=== PATIENT | male | born 1940 | race Caucasian/White ===

== ENCOUNTER → 2020-10-10 15:09 | Outpatient (BNVA) | payer MEDICARE, SELFPAY | PROVIDERS: PCP Family Medicine; Referring Provider Family Medicine; Visit Provider Nurse Practitioner ==

== ENCOUNTER 2023-01-21 09:04 | Outpatient (REF) | payer MEDICARE, SELFPAY ==
[2023-01-21 11:10] LABS: MANUAL DIFF FLAG NO
[2023-01-21 11:22] LABS: Basophils Absolute Auto 0.1 X10*3/uL (0.0-0.2); Basophils Percent Auto 0.6 % (0-2); Eosinophils Absolute Auto 0.5 X10*3/uL (0.0-0.4); Eosinophils Percent Auto 6.4 % (0-4); Hematocrit 43.4 % (42.0-52.0); Hemoglobin 14.1 g/dl (14.0-18.0); Imm Gran Abs Auto 0.05 X10*3/uL (0.00-0.03); Imm Gran Pct Auto 0.6 % (0.0-0.4); Lymphocytes Absolute Auto 2.4 X10*3/uL (1.2-4.9); Lymphocytes Percent Auto 27.8 % (20-40); Mean Corpuscular HGB Conc 32.5 g/dl (31.0-36.0); Mean Corpuscular Hemoglobin 31.5 pg (27.0-33.0); Mean Corpuscular Volume 96.9 fL (80.0-98.0); Mean Platelet Volume 9.6 fL (9.4-12.4); Monocytes Absolute Auto 0.8 X10*3/uL (0.1-1.2); Monocytes Percent Auto 9.8 % (2-11); Neutrophils Absolute Auto 4.7 x10*3/uL (2.0-8.3); Neutrophils Percent Auto 54.8 % (45-73); Platelet Count 237 X10*3/uL (160-400); Red Blood Count 4.48 X10*6/uL (4.60-5.80); Red Cell Distribution Width 13.8 % (11.0-16.0); White Blood Count 8.5 X10*3/uL (4.8-10.8)
[2023-01-21 11:50] LABS: Cholesterol 143 mg/dL (<200); HDL Cholesterol 59 mg/dL (>40); LDL Cholesterol Calculated 71 mg/dL (<100); Triglycerides 66 mg/dL (<150)
[2023-01-21 11:51] LABS: Alanine Aminotransferase 25 U/L (0-40); Albumin Level 4.2 g/dL (3.5-5.0); Alkaline Phosphatase 117 U/L (39-117); Anion Gap 12 (12-20); Aspartate Amino Transferase 22 U/L (5-37); Bilirubin Total 0.4 mg/dL (0.0-1.0); Blood Urea Nitrogen 24 mg/dL (9-16); Calcium 9.7 mg/dL (8.4-10.2); Carbon Dioxide 22 mmol/L (22-29); Chloride 110 mmol/L (96-108); Estimated Glomerular Filt Rate 59; Glucose Random 140 mg/dL (60-115); Potassium 4.4 mmol/L (3.3-5.1); Sodium 140 mmol/L (135-145); TSH reflex Free T4 1.45 uIU/mL (0.32-4.0); Total Protein 7.8 g/dL (6.5-8.0)
[2023-01-21 12:03] LABS: Folate 10.5 ng/mL (> or = 4.0); Vitamin B12 546 pg/mL (200-900)
[2023-01-21 12:35] LABS: Reflex LDLD? No
[2023-01-21 12:36] LABS: Creatinine Urine 101.13 mg/dL; Microalbum/Creatinine Ratio Ur 14.8 ug/mg cr (<30)
[2023-01-23 22:54] LABS: TS Negative Control Passed; TS Panel A 1; TS Panel B 0; TS Positive Control Passed; TSpotTB Negative (Negative)
== END 2023-01-21 09:05 | disposition home or self-care (01) ==
LOC: HO.HHCL 09:04
PROVIDERS: Visit Provider Family Medicine
DX: E11.59 Type 2 diabetes mellitus with other circulatory complications (principal); Z79.4 Long term (current) use of insulin; C82.90 Follicular lymphoma, unspecified, unspecified site; Z11.1 Encounter for screening for respiratory tuberculosis
CPT/HCPCS: 36415; 80053; 80061; 82043; 82570; 82607; 82746; 84443; 85025; 86481

== ENCOUNTER 2023-07-21 13:49 | Outpatient (REF) | payer MEDICARE, SELFPAY ==
[2023-07-21 16:14] LABS: MANUAL DIFF FLAG NO
[2023-07-21 16:45] LABS: Basophils Absolute Auto 0.1 X10*3/uL (0.0-0.2); Basophils Percent Auto 0.8 % (0-2); Eosinophils Absolute Auto 0.5 X10*3/uL (0.0-0.4); Eosinophils Percent Auto 6.9 % (0-4); Hematocrit 40.5 % (42.0-52.0); Hemoglobin 13.2 g/dl (14.0-18.0); Imm Gran Abs Auto 0.04 X10*3/uL (0.00-0.03); Imm Gran Pct Auto 0.5 % (0.0-0.4); Lymphocytes Absolute Auto 2.2 X10*3/uL (1.2-4.9); Mean Corpuscular HGB Conc 32.6 g/dl (31.0-36.0); Mean Corpuscular Hemoglobin 31.6 pg (27.0-33.0); Mean Corpuscular Volume 96.9 fL (80.0-98.0); Mean Platelet Volume 9.9 fL (9.4-12.4); Monocytes Absolute Auto 0.7 X10*3/uL (0.1-1.2); Monocytes Percent Auto 8.9 % (2-11); Neutrophils Absolute Auto 4.2 x10*3/uL (2.0-8.3); Neutrophils Percent Auto 54.9 % (45-73); Platelet Count 217 X10*3/uL (160-400); Red Blood Count 4.18 X10*6/uL (4.60-5.80); Red Cell Distribution Width 13.5 % (11.0-16.0); White Blood Count 7.7 X10*3/uL (4.8-10.8)
[2023-07-21 16:46] LABS: Estimated Average Glucose 255 mg/dL; Hemoglobin A1c % 10.5 % (<6.0)
[2023-07-21 17:00] LABS: Alanine Aminotransferase 27 U/L (0-40); Albumin Level 4.1 g/dL (3.5-5.0); Alkaline Phosphatase 123 U/L (39-117); Anion Gap 16 (12-20); Aspartate Amino Transferase 21 U/L (5-37); Bilirubin Total 0.4 mg/dL (0.0-1.0); Blood Urea Nitrogen 31 mg/dL (9-16); Calcium 9.7 mg/dL (8.4-10.2); Carbon Dioxide 24 mmol/L (22-29); Chloride 104 mmol/L (96-108); Estimated Glomerular Filt Rate 50; Glucose Random 310 mg/dL (60-115); Potassium 4.6 mmol/L (3.3-5.1); Sodium 139 mmol/L (135-145); Total Protein 7.8 g/dL (6.5-8.0)
== END 2023-07-21 13:50 | disposition home or self-care (01) ==
LOC: HO.HHCL 13:49
PROVIDERS: Visit Provider Emergency Medicine
DX: I87.2 Venous insufficiency (chronic) (peripheral) (principal)
CPT/HCPCS: 36415; 80053; 83036; 85025

== ENCOUNTER 2023-09-24 11:01 | Outpatient (REF) | payer MEDICARE, SELFPAY ==
[2023-09-24 13:30] LABS: MANUAL DIFF FLAG NO
[2023-09-24 13:41] LABS: Basophils Absolute Auto 0.1 X10*3/uL (0.0-0.2); Basophils Percent Auto 0.7 % (0-2); Eosinophils Absolute Auto 0.5 X10*3/uL (0.0-0.4); Eosinophils Percent Auto 6.6 % (0-4); Hematocrit 41.4 % (42.0-52.0); Hemoglobin 13.4 g/dl (14.0-18.0); Imm Gran Abs Auto 0.03 X10*3/uL (0.00-0.03); Imm Gran Pct Auto 0.4 % (0.0-0.4); Lymphocytes Absolute Auto 1.9 X10*3/uL (1.2-4.9); Lymphocytes Percent Auto 27.2 % (20-40); Mean Corpuscular HGB Conc 32.4 g/dl (31.0-36.0); Mean Corpuscular Hemoglobin 31.5 pg (27.0-33.0); Mean Corpuscular Volume 97.4 fL (80.0-98.0); Mean Platelet Volume 9.6 fL (9.4-12.4); Monocytes Absolute Auto 0.8 X10*3/uL (0.1-1.2); Neutrophils Absolute Auto 3.7 x10*3/uL (2.0-8.3); Neutrophils Percent Auto 53.1 % (45-73); Platelet Count 244 X10*3/uL (160-400); Red Blood Count 4.25 X10*6/uL (4.60-5.80); Red Cell Distribution Width 13.9 % (11.0-16.0)
[2023-09-24 14:07] LABS: Microalbum/Creatinine Ratio Ur 35.7 ug/mg cr (<30)
[2023-09-24 14:09] LABS: Alanine Aminotransferase 34 U/L (0-40); Albumin Level 4.4 g/dL (3.5-5.0); Alkaline Phosphatase 130 U/L (39-117); Anion Gap 11 (12-20); Aspartate Amino Transferase 28 U/L (5-37); Bilirubin Total 0.3 mg/dL (0.0-1.0); Blood Urea Nitrogen 21 mg/dL (9-16); Carbon Dioxide 26 mmol/L (22-29); Chloride 107 mmol/L (96-108); Cholesterol 116 mg/dL (<200); Estimated Glomerular Filt Rate > 60; Glucose Random 131 mg/dL (60-115); HDL Cholesterol 54 mg/dL (>40); LDL Cholesterol Calculated 44 mg/dL (<100); Potassium 4.3 mmol/L (3.3-5.1); Sodium 140 mmol/L (135-145); Total Protein 7.9 g/dL (6.5-8.0); Triglycerides 94 mg/dL (<150)
[2023-09-24 14:12] LABS: TSH reflex Free T4 1.35 uIU/mL (0.32-4.0)
[2023-09-24 14:22] LABS: Folate 8.3 ng/mL (> or = 4.0); Vitamin B12 491 pg/mL (200-900)
[2023-09-24 14:27] LABS: Reflex LDLD? No
== END 2023-09-24 11:02 | disposition home or self-care (01) ==
LOC: HO.HHCL 11:01
PROVIDERS: Visit Provider Family Medicine
DX: I10 Essential (primary) hypertension (principal); C44.90 Unspecified malignant neoplasm of skin, unspecified; E11.59 Type 2 diabetes mellitus with other circulatory complications; Z79.4 Long term (current) use of insulin
CPT/HCPCS: 36415; 80053; 80061; 82043; 82570; 82607; 82746; 84443; 85025

== ENCOUNTER 2023-11-03 14:30 | Outpatient (REF) | payer MEDICARE, SELFPAY ==
--- NOTE | ~2023-11-03 | FL_ITS ---
EXAMINATION: Modified Barium Swallow CLINICAL INFORMATION: Dysphagia. COMPARISON: None. TECHNIQUE: Modified barium swallow was performed under lateral fluoroscopy with patient in standing position. Barium mixed with solids and liquids of different consistencies was administered by the speech pathologist. Examination was recorded in the fluoroscopy suite. FINDINGS: Trace laryngeal penetration is seen with thin consistency barium. No subglottic aspiration was observed during this examination. FLUOROSCOPY TIME: 1 minute 15 seconds Number of Spot Images: N/A DOSE AREA PRODUCT: 614.7 uGy-m2 (microgray-meter squared) FL/FL barium swallow modified IMPRESSION: Trace laryngeal penetration is seen with thin consistency barium. No subglottic aspiration was observed during this examination. Refer to the speech therapy report for further clarification This procedure was performed by Arnol Camara PA-C, and supervised by Dr. Kaba
--- NOTE | 2023-11-11 14:00 | MHC.SL.IMP ---
Date of Plan of Treatment: 11/03/23 Onset of Symptoms/Illness: 09/15/23 Date Treatment Started: 11/03/23 Admitting Diagnosis: Choking Primary Speech & Language Diagnosis: R13.12 Oropharyngeal Phase Dysphagia Reason for Today's Visit: 84267 Modified Barium Swallow Study Pre-evaluation Dietary Consistencies: Regular Pre-evaluation Liquid Consistency: Thin Pre-evaluation Medication Administration: Whole with Liquid Medical History: Modified Barium Swallow Study Fluoroscopic Evaluation of Swallowing Function CPT Code 97584 Evaluation Year: 2023 Reason for Study: Choking, hx CVA with resultant hemiparesis Referring Physician: Marta Washington MD Evaluating Clinician: Ankita Burroughs MA, CCC-GIFTS OFFICER Study Number: 1 Patient Name: Thad Bautista Status: Outpatient Age: 83 Gender: Male Medical History Hypertension, diabetes mellitus type 2, s/p CVA Current (pre-evaluation) Intake/Diet: Route: PO Diet Grade: Regular Liquid Consistencies: Thin Pre-Study Functional Oral Intake Scale (FOIS): 7- Total oral intake with no restrictions Pain: None reported at time of study SUBJECTIVE: Patient is an 83 year old male with history of CVA with resultant hemiparesis, who was referred for a modified barium swallow study by his primary care provider, Marta Washington MD. Patient reports choking on solids and needing to drink liquids in order to ?get it down.? Patient was accompanied to today?s exam by his son, who endorses that patient has a tendency to eat quickly, resulting in him coughing. Food and Liquid Trials: Oral Impairment: Lip Closure: Did not test Oral Impairment: Tongue Control During Bolus Hold: Did not test Oral Impairment: Bolus Preparation/Mastication: 1=Slow prolonged chewing/mashing with complete re-collection Oral Impairment: Bolus Transport/Lingual Motion: 1= Delayed initiation of tongue motion Oral Impairment: Oral Residue: 2=Residue collection on oral structures Oral Impairment:Initiation of Pharyngeal Swallow: 3=Bolus head in pyriforms Pharyngeal Impairment: Soft Palate Elevation: 0=No bolus between soft palate (SP)/pharyngeal wall (PW) Pharyngeal Impairment: Laryngeal Elevation: 1=Partial thyroid cartilage/arytenoids to epiglottic petiole movement Pharyngeal Impairment: Anterior Hyoid Excursion: 1=Partial anterior movement Pharyngeal Impairment: Epiglottic Movement: 0=Complete inversion Pharyngeal Impairment: Laryngeal Vestibular Closure:: 1=Incomplete: narrow column air/contrast in laryngeal vestibule Pharyngeal Impairment: Pharyngeal Stripping Wave: 1=Present: diminished Pharyngeal Impairment: Pharyngeal Contraction: Did not test Pharyngeal Impairment: Pharyngoesophageal Segment Openin=Partial distention/partial duration: partial obstruction of flow Pharyngeal Impairment: Tongue Base (TB) Retraction: 2=Narrow column of contrast/air between TB and posterior PW Pharyngeal Impairment: Pharyngeal Residue: 2=Collection of residue within or on pharyngeal structures Pharyngeal Impairment: Esophageal Clearance Upright Position: Did not test Impressions and Recommendations Clinical Observations: OBJECTIVE: Time-out: performed at 15:00 Evaluation Start: 14:30; Stop: 14:35 Viewing Planes: LATERAL ONLY Contrast: MBSImP? Standardized Protocol using commercially prepared, standardized Barium viscosities, including: Varibar? THIN LIQUID (40% w/v, <15 cps) , Varibar? PUDDING (40% w/v, <1868-2017 cps) , 1/2 Shortbread Cookie (1 x1 x.25 ) MBSImP ID: [id number] [facility] Results: Lip closure for intraoral bolus containment could not be assessed due to logistical reasons not related to physiologic impairment. Tongue control during bolus hold could not be assessed due to logistical reasons not related to physiologic impairment. Bolus preparation and mastication resulted in slow, prolonged chewing/mashing but with complete re-collection. Bolus transport/lingual motion demonstrated delayed initiation of tongue motion. Oral residue was a collection on oral structures. Initiation of the pharyngeal swallow occurred when the bolus head was in the pyriform sinuses. Soft palate elevation resulted in no bolus between the soft palate and the pharyngeal wall. Laryngeal elevation was decreased, with partial superior movement of the thyroid cartilage/partial approximation of the arytenoids to the epiglottic petiole. Anterior hyoid excursion demonstrated partial anterior movement. Epiglottic movement resulted in complete inversion. Laryngeal vestibular closure was incomplete, with a narrow column of air/contrast noted within the laryngeal vestibule at the height of the swallow. Pharyngeal stripping wave was present, but diminished. Pharyngeal contraction could not be determined due to logistical reasons not related to physiologic impairment. Pharyngoesophageal segment opening demonstrated partial distension/partial duration, with partial obstruction of bolus flow. Tongue base retraction allowed a narrow column of contrast or air between the retracted tongue base and the posterior pharyngeal wall. Pharyngeal residue was a collection of residue within or on pharyngeal structures. Esophageal clearance in the upright position could not be assessed due to logistical reasons not related to physiologic impairment. Oral Impairment Score: 7 (absence of score, component 1component 2) Pharyngeal Impairment Score: 9 (absence of score, component 13) Esophageal Impairment Score: --- (absence of score, component 17) Laryngeal Penetration and Aspiration: Penetration was observed in today's study. Thin Contrast entered the airway, remained above the vocal folds, and was ejected from the airway. No aspiration seen. ASSESSMENT: Clinician Assessment: This exam was conducted by the radiologist and the speech pathologist. Patient was able to feed himself and trialed thin (sequential cup sips), puree, and regular solid consistencies. Patient demonstrated prolonged oral phase, characterized by piece meal deglutition and delayed posterior lingual motion. Pharyngeal swallow trigger was also delayed, initiated at the level of the pyriform sinuses. Post-swallow, there was trace residue on the tongue with liquids, increased on the tongue and palate with puree and regular solids, but still minimal. No evidence of nasopharyngeal reflux. Partial laryngeal elevation with partial approximation of the arytenoids to the epiglottic petiole. Incomplete laryngeal vestibular closure with trace penetration on thin liquids. A trace amount of contrast entered the airway above the vocal folds during the swallow and spontaneously ejected. No evidence of aspiration during this exam. There was minimal pharyngeal residue on the tongue base, in the valleculae, and in the pyriform sinuses, which effectively cleared with a dry swallow. The following compensatory strategies have been used in therapy as well as in today's study and improved swallowing function: Additional Swallow(s) per Bolus eliminated Oral Residue, Pharyngeal Residue Liquid Intake Recommendation: Thin Liquid Intake Strategies: Small Sips Dietary Recommendations: Regular Medication Administration: Whole with Liquid Please contact the pharmacy regarding appropriate crushable or liquid drug formulations that are available whenever modified delivery is recommended. Compensatory Strategies Recommended: Sitting Upright (90 deg), Double Swallow, Small Bites and Sips, Alternate Liquids/Solids, Rate of Ingestion Change, Avoid Specific Foods Supervision during eating and or drinking: Total Supervision (1:1) Recommendation for Speech Therapy: NA:Typical Evaluation Text Comment: Intake Recommendations: Route: PO Diet Grade: Regular Liquid Consistencies: Thin Post-Study Functional Oral Intake Scale (FOIS): 6- Total oral intake with no special preparation, but must avoid specific foods or liquid items Trace penetration with thin liquid, which spontaneously cleared. Minimal oral and pharyngeal residue cleared with self-initiated dry swallows. Therapy Recommendations: Further speech intervention is not indicated and, based on objective observations made at today?s exam, diet modification does not appear necessary either at this time. Patient is recommended to avoid hard, overly tough foods, however, and is recommended strategies as aspiration precautions and to promote oral and pharyngeal clearance: upright position when eating and drinking, take small bites, chew food well, alternate bites with sips of liquid, dry swallow between bites, make sure mouth is clear of any residue before taking more bites, take small individual sips. Patient is recommended to continue monitoring his dysphagia. If there are any changes or worsening of symptoms, a re-evaluation may be needed. Clinician - Supplemental, Miscellaneous Communication: It is important to note MBSS objective studies are snapshots in time and Patient function might vary with factors such as time of day or concomitant medical conditions. For this reason, the final treatment plan for this patient should rest with their medical care team. Additional recommendations should be considered with the totality of the Patient in mind. Thank for the opportunity to participate in the care of this patient. If you have any questions about the content of this report, please contact the [facility] at [facility]. Education: Education regarding findings from today's study and plans for therapy were provided to Patient and family/caregiver through Verbal Instruction. Understanding was expressed by the Patient and family/caregiver. Industrial Truck Driver Clinician/Clinical Fellow: No Supervisory Statement: N/A Speech Language Pathologist: Ankita Burroughs M.A., [facility]-GIFTS OFFICER
== END 2023-11-03 14:31 | disposition home or self-care (01) ==
LOC: HO.XRAY 14:30
PROVIDERS: Visit Provider Family Medicine
DX: T17.308A Unspecified foreign body in larynx causing other injury, initial encounter (principal)
CPT/HCPCS: 74230; 92611

== ENCOUNTER → 2023-11-03 14:30 | Outpatient (BNV) | payer MEDICARE, SELFPAY | PROVIDERS: Visit Provider Physician Assistant Surgical | DX: R13.10 Dysphagia, unspecified (principal) | CPT/HCPCS: 74230 ==

== ENCOUNTER → 2023-12-03 19:00 | Outpatient (BNV) | payer MEDICARE, SELFPAY | PROVIDERS: PCP Family Medicine; Visit Provider Internal Medicine | DX: G47.33 Obstructive sleep apnea (adult) (pediatric) (principal) | CPT/HCPCS: 95806 ==

== ENCOUNTER → 2023-12-03 19:30 | Outpatient (REF) | payer MEDICARE, SELFPAY | LOC: HO.SL 19:30 | PROVIDERS: PCP Family Medicine; Visit Provider Family Medicine | DX: G47.33 Obstructive sleep apnea (adult) (pediatric) (principal) | CPT/HCPCS: 95806 ==

== ENCOUNTER 2024-02-07 18:20 | Outpatient (REF) | payer MEDICARE, SELFPAY ==
--- NOTE | ~2024-02-07 | MR_ITS ---
EXAMINATION: MR BRAIN WITHOUT CONTRAST CLINICAL INFORMATION: Dementia. COMPARISON: CT head from 12/11/2010. TECHNIQUE: MRI of the brain was obtained using routine sequences without contrast. FINDINGS: Moderately motion degraded exam. No focal restricted diffusion is demonstrated to suggest acute or subacute cerebral ischemia. No evidence of acute hemorrhagic products on heme-sensitive imaging. Chronic lacunar infarct of the left gan radiata with mild hemosiderin staining. Scattered periventricular and deep white matter T2 FLAIR hyperintensities consistent with mild underlying microangiopathy. Proportional prominence of the ventricles and sulcal spaces without evidence of obstructive hydrocephalus. No abnormal mass effect. No midline shift. Normal appearance of the pituitary gland. Normal positioning of the cerebellar tonsils. Normal arterial and venous vascular flow voids are present. Normal, homogeneous marrow signal. Mild mucosal thickening of the paranasal sinuses. No signal abnormalities within the mastoids. MR/MR head/brain wo con IMPRESSION: 1. No acute intracranial abnormalities. 2. Mild underlying microangiopathy and generalized cerebral volume loss. Chronic lacunar infarct of the left gan radiata. Electronically signed by: Hunter Johnson DO 03/03/2024 06:48 AM DREW
== END 2024-02-07 18:21 | disposition home or self-care (01) ==
LOC: HO.MRI 18:20
PROVIDERS: PCP Family Medicine; Visit Provider Family Medicine
DX: R41.3 Other amnesia (principal)
CPT/HCPCS: 70551

== ENCOUNTER 2024-05-28 08:08 | Outpatient (REF) | payer OTHER, SELFPAY ==
--- OUTSIDE RECORDS SUMMARY | 2024-05-28 08:20 | XMS_ITS | Encounter Summary ---
Author Organization [employer] Address [address] [place] [address] Care Team Providers Care Chemical Etch Operator Name Role Phone Marta Washington MD Primary Care Provider [phone] Tahir Siu PharmD Unavailable [phone] Reason for Referral * Consultation (Routine) - Authorized Specialty Diagnoses / Procedures Referred By Isreal lim Referred To Contact Pharmacy Diagnoses T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, with long-term current use of insulin (CMS/HCC) Primary hypertension Marta Washington MD [address] [place] [address] Phone: tel: fax: Referral ID Status Reason Start Date Expiration Date Visits Requested Visits Authorized [id number] Authorized Consult and Treat 05/27/2024 05/27/2025 6 6 Encounter Details Date Type Department Care Team (Late st Contact Info) Description 05/27/2024 Orders Only [facility] [address] [place] [address] Marta Washington MD [address] [place] [address] T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, with long-term current use of insulin (CMS/HCC) (Primary Dx); Primary hypertension Social History Tobacco Use Types Packs/Day Years Used Date Smoking Tobacco: Never Passive Smoke Exposure: Never Smokeless Tobacco: Never Alcohol Answer Date Recorded Frequency of Alcohol Consumption Not on file 10/30/2023 Average Number of Drinks Not on file 024 Frequency of Binge Drinking Not on file 10/2023 Score 0 10/30/2023 Depression Answer Date Recorded Patient Health Questionnaire-9 Score 3 07/29/2023 Patient Health Questionnaire-9 Score 3 07/29/2023 Last PHQ-9: Questionnaire Data Not on file 0 07/29/2023 Housing Stability Answer Date Recorded What is your housing situation today? I have rekha aguero 07/21/[address] you li ve. Do you have problems with any of the following? None of the above 07/21/2023 Food Insecurity Answer Date Recorded Within the past 12 months, y ou worried that your food would run out before you got money to buy more: Never True 07/21/2023 Within the past 12 months,th e food you bought just didn't last and you didn't have enough money to get more: Never True Transportation Answer Date Recorded In the past 12 months, has l ack of transportation kept you from medical appts, meetings, work or from getting things needed for daily living? No 07/21/2023 Utilities Answer Date Recorded In the past 12 months, has t he electric, gas, oil or water company threatened to shut off services in your home? No 07/21/2023 Depression Answer Date Recorded Patient Health Questionnaire-2 Score 0 07/29/2023 Sex and Gender Information Value Date Recorded Sex Assigned at Male 01/21/2022 10:20 AM EDT Legal Sex Male 10:20 AM EDT Gender Identity Male 01/21/2022 10:20 AM EDT Sexual Orientation Straight 01/21/2022 10 :20 AM EDT documented as of this encounter Plan of Treatment Upcoming Encounters Date Type Department Care Team (Late st Contact Info) Description 06/03/2024 9:00 AM EDT Medication Management [facility] [address] [place] [address] Tahir Siu, PharmD [address] [place] [address] 07/29/2024 9:00 AM EDT Office Visit [facility] [address] [place] [address] Marta Washington MD [address] [place] [address] Scheduled Referrals Name Type Priority Associated Diagnoses Orde r Schedule Referral to Pharmacy CDTM Outpatient Referral Routine T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, with long-term current use of insulin ([facility]) Primary hypertension Ordered: 05/27/2024 documented as of this encounter Goals Goal Patient Goal Type Associated Problems Recent Progress Patient-Stated? Author Blood Pressure < 140/90 Blood Pressure 132/88(2024 9:11 AM EST) No Tahir Siu PharmD Hemoglobin A1c < 7 Result Component 8.4( 9:06 AM EST) No Tahir Siu PharmD documented as of this encounter Visit Diagnoses Diagnosis T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, with long-term current use of insulin ([facility])- Primary Primary hypertension Unspecified essential hypertension documented in this encounter Additional Health Concerns Assessment Noted Time PHQ-9 Depression Total Score: 3 07/29/19 24 9:26 AM EDT documented as of this encounter Care Teams Chemical Etch Operator Relationship Specialty Start Date End [place] [address] PCP - General Family Medicine 07/03/16 Tahir Siu PharmD [address] [place] [phone] Pharmacist Internal Medicine 11/11/22 documented as of this encounter
--- OUTSIDE RECORDS SUMMARY | 2024-05-28 08:20 | XMS_ITS | Encounter Summary ---
Author Organization [employer] Address [address] [place] [address] Care Team Providers Care Childrens Club Attendant Name Role Phone Marta Washington MD Primary Care Provider [phone] Tahir Siu PharmD Unavailable [phone] Encounter Details Date Type Department Care Team (Late st Contact Info) Description 05/26/2024 Orders Only [facility] [address] [place], [place] [phone] Marta Washington MD [address] [place], [place] [phone] Social History Tobacco Use Types Packs/Day Years [...] Description 06/03/2024 9:00 AM EDT Medication Management [facility] [address] [place] [phone] Tahir Siu PharmD [address] [place] [phone] 07/29/2024 9:00 AM EDT Office Visit [facility] [address] [place] [phone] Marta Washington MD [address] [place] [address] documented as of this encounter Goals Goal Patient Goal Type Associated Problems Recent Progress Patient-Stated? Author Blood Pressure < 140/90 Blood Pressure 132/88(2024 9:11 AM EST) No Tahir Siu PharmD Hemoglobin A1c < 7 Result Component 8.4( 9:06 AM EST) No Tahir Siu PharmD documented as of this encounter Visit Diagnoses Not on filedocumented in this encounter Additional Health Concerns Assessment Noted Time PHQ-9 Depression Total Score: 3 07/29/19 24 9:26 AM EDT documented as of this encounter Care Teams Childrens Club Attendant Relationship Specialty Start Date End Date Marta Washington MD [address] [place] [address] PCP - General Family Medicine 07/03/16 Tahir Siu PharmD [address] [place] [address] Pharmacist Internal Medicine 11/11/22 documented as of this encounter
--- OUTSIDE RECORDS SUMMARY | 2024-05-28 08:21 | XMS_ITS | Encounter Summary ---
Author Organization [employer] Address [address] [place] [address] Care Team Providers Care Arborist Climber Name Role Phone Marta Washington MD Primary Care Provider [phone] Tahir Siu PharmD Unavailable [phone] Encounter Details Date Type Department Care Team (Latest Contact Info) Description 09/20/2021 Abstract [facility] Dental, Provider, DDS Social History Tobacco Use Types Packs/Day Years Used Date Smoking Tobacco: Never Assessed Sex and Gender Information Value Date Recorded Sex Assigned at Male 01/21/2022 10:20 AM EDT Legal Sex Male 10:20 AM EDT Gender Identity Male 01/21/2022 10:20 AM EDT Sexual Orientation Straight 01/21/2022 10 :20 AM EDT documented as of this encounter Plan of Treatment Upcoming Encounters Date Type Department Care Team (Late st Contact Info) Description 06/03/2024 9:00 AM EDT Medication Management [facility] [address] [place] [phone] Tahir Siu, PharmD [address] [place] [address] 07/29/2024 9:00 AM EDT Office Visit [facility] [address] [place] [phone] Marta Washington MD [address] [place] [address] documented as of this encounter Visit Diagnoses Not on filedocumented in this encounter Care Teams Arborist Climber Relationship Specialty Start Date End Date Marta Washington MD [address] [place] [address] PCP - General Family Medicine 07/03/16 Tahir Siu PharmD [address] [place] [address] Pharmacist Internal Medicine 11/11/22 documented as of this encounter
--- OUTSIDE RECORDS SUMMARY | 2024-05-28 08:21 | XMS_ITS | Encounter Summary ---
Author Organization [employer] Address [address] 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 (CMS/HCC); T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, with long-term current use of insulin (CMS/HCC); History of stroke; Dyslipidemia; Follicular non-Hodgkin's lymphoma (CMS/HCC); Hypoglycemia; Diarrhea, unspecified type; Dietary counseling; Exercise counseling; Class 1 obesity due to excess calories with serious comorbidity and body mass index (BMI) of 34.0 to 34.9 in adult Social History Tobacco Use Types Packs/Day Years [...] AM EDT documented as of this encounter Last Filed Vital Signs Vital Sign Reading Time Taken Comments Blood Pressure 132/88 05/11/2024 9:11 AM EST Pulse 97 05/11/2024 9:04 AM EST Temperature 36.1 ??C (96.9 ??F) 05/11/2024 9:04 AM ES T Respiratory Rate 17 05/11/2024 9:04 AM EST Oxygen Saturation 98% 05/11/2024 9:04 AM EST Inhaled Oxygen Concentration - - Weight 106 kg (233 lb) 05/11/2024 9:04 AM EST Height - - Body Mass Index 34.66 01/26/2024 9:36 AM EST documented in this encounter Progress Notes * Marta Washington MD - 05/11/2024 9:15 AM EST Images from the original note were not included. Subjective Thad Bautista is a 83 y.o. male who has diabetes mellitus type 2, hypertension, Hx CVA,lymphoma in remission, and BOBBY, and patient presents for follow up of chronic conditions. Background: Our last encounter was 03/03/2024. Interval history: 04/01/24 He had diabetic eye exam. No diabetic retinopathy. 04/21/24 CDTM visit with Tahir Siu PharmD. Patient had 3 hypoglycemic episodes, and Lantus wasdecreased from 30 to 24 units. He was still waiting for CPAP machine. Today: Pt came with his son. They perceive that he has a stomach virus but has been eating well, for last few days. Noting he had diarrhea last night but denies a fever or vomiting. Pt denies having pain in the beginning of the week, but notes before the pain began he ate Cheetos. He is on semaglutide. Pt states when he eats bread his blood sugar goes up and he has been taking his 24 units of Lantus each day. Pt reports he uses Ozempic once a week on Friday. Pt broke his sugar censor and has been having hypo episode. Reporting: - He had 69 Blood Sugar on May 07 at 3 am and May 06 at 8 am - On May 04 his Blood Sugar was 70 at 11 pm - Also on May 03 his Blood Sugar was 69 at 6:49 am Patient does not check his home BP very often. Pt is still waiting for his CPAP machine. Pt reports having an appointment last week with his Opthalmologist, and he notes his eyes are doingwell. Review of Systems Constitutional: Negative for activity change, appetite change and fever. Respiratory: Negative for shortness of breath. Cardiovascular: Negative for chest pain. Objective Vitals: 05/11/24 0904 05/11/24 0911 BP: 121/71 132/88 Pulse: 97 Resp: 17 Temp: 96.9 ??F (36.1 ??C) TempSrc: Temporal SpO2: 98% Weight: 233 lb (106 kg) Physical Exam Constitutional: General: He is not in acute distress. Appearance: Normal appearance. He is not ill-appearing. HENT: Head: Normocephalic and atraumatic. Mouth/Throat: Mouth: Mucous membranes are moist. Eyes: Extraocular Movements: Extraocular movements intact. Pupils: Pupils are equal, round, and reactive to light. Cardiovascular: Rate and Rhythm: Normal rate and regular rhythm. Heart sounds: No murmur heard. Pulmonary: Effort: Pulmonary effort is normal. No respiratory distress. Breath sounds: Normal breath sounds. No wheezing or rhonchi. Skin: General: Skin is warm. Neurological: Mental Status: He is alert. Mental status is at baseline. Psychiatric: Mood and Affect: Mood normal. Results: Lab Results Component Value Date NA 140 09/24/2023 K 4.3 09/24/2023 CL 107 09/24/2023 CO2 26 09/24/2023 BUN 21 (H) 09/24/2023 CREATININE 1.10 09/24/2023 EGFR >60 09/24/2023 GLUCOSE 131 (H) 09/24/2023 TOTALBILIRUB 0.3 09/24/2023 AST 28 09/24/2023 ALT 34 09/24/2023 TOTPROTEIN 7.9 09/24/2023 ALB 4.4 09/24/2023 ALP 130 (H) 09/24/2023 Lab Results Component Value Date TRIG 94 09/24/2023 CHOL 116 09/24/2023 LDLCHOLCAL 44 09/24/2023 HDL 54 09/24/2023 Lab Results Component Value Date HGBA1C 8.4 (A) 05/11/2024 MICROALBUR 17.0 09/24/2023 CREATUR 47.50 09/24/2023 MICROALBCREU 35.7 (H) 09/24/2023 Lab Results Component Value Date WBC 7.0 09/24/2023 HGB 13.4 (L) 09/24/2023 HCT 41.4 (L) 09/24/2023 PLT 244 09/24/2023 MCV 97.4 09/24/2023 Screening and Health Care Maintenance: PHQ-2/9 Score: Patient Health Questionnaire-9 Score: 3 (07/29/2023 9:26 AM) Patient Health Questionnaire-2 Score: 0 (07/29/2023 9:26 AM) Thoughts that you would be better off or hurting yourself in some way: Not at all (07/29/2023 9:26 AM) ISIDRO-7 Score: ISIDRO-7 Total Score: 6 (10/30/2023 10:00 AM) Health Maintenance Due Topic Date Due COVID-19 Vaccine ( season) 2024 SDOH Screening 07/20/2024 Depression Screening 07/28/2024 Diabetes: Hemoglobin A1C 08/08/2024 Assessment/Plan Problem List Items Addressed This Visit Aortic valve stenosis - Followed by [facility] with annual echocardiogram -TTE on 07/24/21 Moderate LVH. EF 60-65%. Moderate aortic stenosis. Mild aortic regurgitation -TTE on 08/09/22. Normal left ventricular function EF 60-65%. Showed mild aortic stenosis. - Optimize risk factor management - TTE on 06/24/23 Normal LV function, EF 65-70%, moderate asymmetric septal hypertrophy with septal thickness 16-19 mm with the remaining wall thickness 1.3 cm. RV function is normal. Severely calcified AV. Mod to severe with AV area 1.1 cm2, mod thickening of MV. Dyslipidemia - Last lipid profile: 09/24/23 - According to ACC/AHA guideline, high-intensity statin therapy is recommended. - Continue atorvastatin 40 mg qhs. Consider increasing to 80 mg qhs - Emphasized the importance of lifestyle modification. Follicular non-Hodgkin's lymphoma (CMS/HCC) Oncologist: 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 -Inguinal lymph node Bx on 08/21/18, low grade lymphoma -Bone marrow Bx - normal -completed mini-CHOP 6 cycles 09/15/18-12/29/18 -s/p local radiation Tx from 03/08/19 to 03/30/19 to left mandibular area and right groin. -most recent CT scan on 12/06/20 showed complete resolution of left submandibular mass and small mesenteric lymph node, suggestive of clinical and radiological remission. - Ordered CBC auto differential 05/11/24. If abnormal, will consider CT scan. Relevant Orders CBC auto differential Hemiparesis of right dominant side as late effect of cerebral infarction (CMS/HCC) - left side CVA with right hemiparesis - continue risk factor management - most recent carotid US on 12/29/23 showed moderate b/l carotid stenosis, 16- 49%, stable. - ordered a hospital bed at home for treatment of his medical conditions and safety. - seen by quarter supervisor in Dec 2023 after carotid US and echo, follow up in 1 year with quarter supervisor Hypertension - Primary - Goal BP < 140/90 per JNC-8, < 130/80 per ACC/AHA guideline (Tx threshold > 140/90 seconday CVA prevention) - Last echo in July 2021 Moderate concentric LVH. LVEF 60-65%; Moderately calcified aortic valve, moderate aortic stenosis with mild aortic regurgitation. - Continue working on life style modifications. - Continue checking BP at home - Continue losartan to 100 mg daily. - Consider adding a low dose amlodipine if BP is still elevated - Medication Hx: amlodipine discontinued in Oct 2016 due to LE swelling. Furosemide was discontinued. - Reduce sodium consumption. - Keep appointment with Tahir Siu, PharmD, for CDTM. - Ordered Comprehensive Metabolic Panel 05/11/24 Relevant Orders Comprehensive Metabolic Panel Obesity Type 2 diabetes mellitus (CMS/HCC) A1C 8.4% on 05/11/24, 8.5% on 01/26/24 - continue Lantus 30 unit qHS - continue Novolog to 6 units with meals - continue metformin ER 1000 mg bid. - continue Jardiance 10 mg daily for cardiovascular benefit - continue Semaglutide, will increase its dose - consider adding SGLT2i - continue working on lifestyle modifications - patient has CGM [employer] DM Maintenance - Last eye exam: Apr 11, 2024. No diabetic retinopathy. Pt has a Hx of benign neoplasm of R eye. - Last foot exam: 10/30/23, high-risk - Last microalbumin test: 09/24/23, UACR 35.7 - Last lipid profile: 09/24/23 - Last dental exam: ?scheduled for 2022 CDTM visit with our pharmacist, Tahir Siu, PharmD, on 12/03/23. Patient reported that he has been using Lantus 30 units, rather than 25 units on instruction. Relevant Orders POCT glucose manually resulted (Completed) POCT glycosylated hemoglobin (Hgb A1c) (Completed) History of stroke -Work on risk factor management / secondary prevention. Using ASA as antiplatelet agent. -Carotid US on 09/13/22 b/l stenosis 15-49% -MRI on 02/07/24 showed chronic lacunar infarct of the left gan radiata. Bilateral carotid artery stenosis - Hx left side CVA - 12/29/23 Carotid US showed bilateral carotid stenosis, moderate 16-49%. - Continue working on secondary prevention / risk factor management Other Visit Diagnoses Hypoglycemia Diarrhea, unspecified type - Ordered TSH with Reflex to Free T4 05/11/24 - Ordered Stool - Gastrointestinal panel 05/11/24 Relevant Orders TSH with Reflex to Free T4 Stool - Gastrointestinal panel Dietary counseling Exercise counseling No Known Allergies Current Outpatient Medications Medication Instructions Alcohol Swabs (Alcohol Prep) 70 % pads USE FOUR TIMES DAILY NEEDED aspirin (Aspirin Low Dose) 81 MG EC tablet TAKE 1 TABLET BY MOUTH EVERY MORNING atorvastatin (Lipitor) 40 MG tablet TAKE 1 TABLET BY MOUTH AT BEDTIME B-D UF III MINI PEN NEEDLES 31G X 5 MM misc USE DIRECTED FOUR TIMES DAILY Continuous Glucose Assistance Specialist (FreeStyle Romel 2 [place]) device Scan sensor every 8 hours Continuous Glucose Sensor (FreeStyle Romel 2 Sensor) misc Apply 1 sensor every 14 days docusate sodium (Colace) 100 MG capsule TAKE 1 CAPSULE BY MOUTH TWICE DAILY IN THE MORNING AND AT BEDTIME Ferrous Sulfate (iron) 325 (65 Fe) MG tablet TAKE 1 TABLET BY MOUTH TWICE DAILY IN THE MORNING AND IN THE EVENING WITH ORANGE JUICE glucose blood (FreeStyle Precision Vincent Test) test strip Use to test blood sugar 3-6 times daily insulin glargine (Lantus SoloStar) 100 UNIT/ML pen Inject 24 units subcutaneously every evening Jardiance 10 MG TAKE 1 TABLET BY MOUTH EVERY MORNING losartan (Cozaar) 100 MG tablet TAKE 1 TABLET BY MOUTH EVERY MORNING metFORMIN (Glucophage) 1000 MG tablet TAKE 1 TABLET BY MOUTH TWICE DAILY IN THE MORNING AND IN THE EVENING WITH FOOD NovoLOG FLEXPEN 100 UNIT/ML pen INJECT 6 UNITS SUBCUTANEOUSLY WITH MEALS pantoprazole (ProtoNix) 20 MG EC tablet TAKE 1 TABLET BY MOUTH ONCE DAILY NEEDED semaglutide (OZEMPIC) 1 mg, Subcutaneous, Weekly TRUEplus Lancets 33G misc TEST BLOOD SUGAR 5-6 TIMES PER DAY Follow-up: 3 months for RV of type 2 diabetes and hypertension or sooner if any problem arises. Scribe Attestation: Edith Flores, am serving as a scribe to document services personally performed by Marta Washington MD, based on the patient's response to questions by provider and provides statements to me. documented in this encounter Miscellaneous Notes * Assessment & Plan Note - Edith Baird MA - 05/11/2024 8:43 AM ESTAssociated Problem(s): History of stroke -Work on risk factor management / secondary prevention. Using ASA as antiplatelet agent. -Carotid US on 09/13/22 b/l stenosis 15-49% -MRI on 02/07/24 showed chronic lacunar infarct of the left gan radiata. * Assessment & Plan Note - Edith Baird MA - 05/11/2024 8:43 AM ESTAssociated Problem(s): Follicular non-Hodgkin's lymphoma (CMS/HCC) Oncologist: 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 -Inguinal lymph node Bx on 08/21/18, low grade lymphoma -Bone marrow Bx - normal -completed mini-CHOP 6 cycles 09/15/18-12/29/18 -s/p local radiation Tx from 03/08/19 to 03/30/19 to left mandibular area and right groin. -most recent CT scan on 12/06/20 showed complete resolution of left submandibular mass and small mesenteric lymph node, suggestive of clinical and radiological remission. - Ordered CBC auto differential 05/11/24. If abnormal, will consider CT scan. * Assessment & Plan Note - Edith Baird MA - 05/11/2024 8:43 AM ESTAssociated Problem(s): Dyslipidemia - Last lipid profile: 09/24/23 - According to ACC/AHA guideline, high-intensity statin therapy is recommended. - Continue atorvastatin 40 mg qhs. Consider increasing to 80 mg qhs - Emphasized the importance of lifestyle modification. * Assessment & Plan Note - Edith Baird MA - 05/11/2024 8:43 AM ESTAssociated Problem(s): Type 2 diabetes mellitus ([facility]) A1C 8.4% on 05/11/24, 8.5% on 01/26/24 - continue Lantus 30 unit qHS - continue Novolog to 6 units with meals - continue metformin ER 1000 mg bid. - continue Jardiance 10 mg daily for cardiovascular benefit - continue Semaglutide, will increase its dose - consider adding SGLT2i - continue working on lifestyle modifications - patient has CGM [employer] DM Maintenance - Last eye exam: Apr 11, 2024. No diabetic retinopathy. Pt has a Hx of benign neoplasm of R eye. - Last foot exam: 10/30/23, high-risk - Last microalbumin test: 09/24/23, UACR 35.7 - Last lipid profile: 09/24/23 - Last dental exam: ?scheduled for 2022 CDTM visit with our pharmacist, Tahir Siu, PharmD, on 12/03/23. Patient reported that he has been using Lantus 30 units, rather than 25 units on instruction. * Assessment & Plan Note - Edith Baird MA - 05/11/2024 8:42 AM ESTAssociated Problem(s): Bilateral carotid artery stenosis - Hx left side CVA - 12/29/23 Carotid US showed bilateral carotid stenosis, moderate 16-49%. - Continue working on secondary prevention / risk factor management * Assessment & Plan Note - Edith Baird MA - 05/11/2024 8:42 AM ESTAssociated Problem(s): Hypertension - Goal BP < 140/90 per JNC-8, < 130/80 per ACC/AHA guideline (Tx threshold > 140/90 seconday CVA prevention) - Last echo in July 2021 Moderate concentric LVH. LVEF 60-65%; Moderately calcified aortic valve, moderate aortic stenosis with mild aortic regurgitation. - Continue working on life style modifications. - Continue checking BP at home - Continue losartan to 100 mg daily. - Consider adding a low dose amlodipine if BP is still elevated - Medication Hx: amlodipine discontinued in Oct 2016 due to LE swelling. Furosemide was discontinued. - Reduce sodium consumption. - Keep appointment with Tahir Siu PharmD, for CDTM. - Ordered Comprehensive Metabolic Panel 05/11/24 * Assessment & Plan Note - Edith Baird MA - 05/11/2024 8:42 AM ESTAssociated Problem(s): Aortic valve stenosis - Followed by [facility] with annual echocardiogram -TTE on 07/24/21 Moderate LVH. EF 60-65%. Moderate aortic stenosis. Mild aortic regurgitation -TTE on 08/09/22. Normal left ventricular function EF 60-65%. Showed mild aortic stenosis. - Optimize risk factor management - TTE on 06/24/23 Normal LV function, EF 65-70%, moderate asymmetric septal hypertrophy with septal thickness 16-19 mm with the remaining wall thickness 1.3 cm. RV function is normal. Severely calcified AV. Mod to severe with AV area 1.1 cm2, mod thickening of MV. * Assessment & Plan Note - Edith Baird MA - 05/11/2024 8:41 AM ESTAssociated Problem(s): Hemiparesis of right dominant side as late effect of cerebral infarction (CMS/HCC) - left side CVA with right hemiparesis - continue risk factor management - most recent carotid US on 12/29/23 showed moderate b/l carotid stenosis, 16- 49%, stable. - ordered a hospital bed at home for treatment of his medical conditions and safety. - seen by quarter supervisor in Dec 2023 after carotid US and echo, follow up in 1 year with quarter supervisor documented in this encounter Plan of Treatment Upcoming Encounters Date Type Department Care Team (Late st Contact Info) Description 06/03/2024 9:00 AM EDT Medication Management [facility] [address] [place] [phone] Tahir Siu, PharmD [address] [place] [phone] 07/29/2024 9:00 AM EDT Office Visit [address] [address] Marta Washington MD [address] [place] [address] Scheduled Orders Name Type Priority Associated Diagnoses Orde r Schedule Comprehensive Metabolic Panel Lab Routine Primary hypertension Expected: 05/11/2024 (Approximate), Expires: 05/11/2025 CBC auto differential Lab Routine Follicular non-Hodgkin's lymphoma (CMS/HCC) Expected: 05/11/2024 (Approximate), Expires: 05/11/2025 TSH with Reflex to Free T4 Lab Routine Diarrhea, unspecified type Expected: 05/11/2024 (Approximate), Expires: 05/11/2025 Stool - Gastrointestinal panel Microbiology Routine Diarrhea, unspecified type Expected: 05/11/2024 (Approximate), Expires: 05/11/2025 documented as of this encounter Goals Goal Patient Goal Type Associated Problems Recent Progress Patient-Stated? Author Blood Pressure < 140/90 Blood Pressure 132/88(2024 9:11 AM EST) No Tahir Siu, Tierney Hemoglobin A1c < 7 Result Component 8.4( 9:06 AM EST) No Tahir Siu PharmD documented as of this encounter Procedures Procedure Name Priority Date/Time Associated Diagnosis Comments POCT GLYCOSYLATED HEMOGLOBIN (HGB A1C) Routine 05/11/2024 9:06 AM EST T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, with long-term current use of insulin ([facility]) POCT GLUCOSE Routine 05/11/2024 9:05 AM EST T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, with long-term current use of insulin ([facility]) documented in this encounter Results * (ABNORMAL) POCT glycosylated hemoglobin (Hgb A1c) (05/11/2024 9:06 AM EST) Hemoglobin A1C 8.4(A) 4.0 - 6.0 % QC Media Lot # [id number] Lot# Expiration Date Blood Capillary blood specimen / Unknown 05/11/2024 9:06 AM EST us Marta Washington MD POINT OF CARE TEST ENTER/EDIT OR DERABLES Final Result * POCT glucose manually resulted (05/11/2024 9:05 AM EST) Glucose Blood, POC 159 60 - 200 mg/dL QC Media Lot # [id number] Lot# Expiration Date 025 Blood Capillary blood specimen / Unknown 05/11/2024 9:05 AM EST us Marta Washington MD POINT OF CARE TEST ENTER/EDIT OR DERABLES Final Result documented in this encounter Visit Diagnoses Diagnosis Primary hypertension- Primary Unspecified essential hypertension Bilateral carotid artery stenosis Occlusion and stenosis of carotid artery without mention of cerebral infarction Nonrheumatic aortic valve stenosis Hemiparesis of right dominant side as late effect of cerebral infarction ([facility]/HCC) T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, with long-term current use of insulin (CMS/HCC) History of stroke Transient ischemic attack (TIA), and cerebral infarction without residual deficits Dyslipidemia Other and unspecified hyperlipidemia Follicular non-Hodgkin's lymphoma (CMS/HCC) Hypoglycemia Hypoglycemia, unspecified Diarrhea, unspecified type Dietary counseling Dietary surveillance and counseling Exercise counseling Class 1 obesity due to excess calories with serious comorbidity and body mass index (BMI) of 34.0 to 34.9 in adult documented in this encounter Additional Health Concerns Assessment Noted Time PHQ-9 Depression Total Score: 3 07/29/19 24 9:26 AM EDT documented as of this encounter Care Teams Furniture Assembly Supervisor Relationship Specialty Start Date End Date Marta Washington MD [address] [place] [address] PCP - General Family Medicine 07/03/16 Tahir Siu, Tierney [address] [place] [address] Pharmacist Internal Medicine 11/11/22 documented as of this encounter
--- OUTSIDE RECORDS SUMMARY | 2024-05-28 08:21 | XMS_ITS | Encounter Summary ---
Author Organization [employer] Address [address] [place] [address] Care Team Providers Care Power Bender Operator Name Role Phone Marta Washington MD Primary Care Provider [phone] Tahir Siu PharmD Unavailable [phone] Encounter Details Date Type Department Care Team (Latest Contact Info) Description 05/11/2024 Travel Social History Tobacco Use Types Packs/Day Years [...] Description 06/03/2024 9:00 AM EDT Medication Management [facility] [address] [place] [phone] Tahir Siu PharmD [address] [place] [phone] 07/29/2024 9:00 AM EDT Office Visit [facility] [address] [place] [phone] Marta Washington MD [address] [place] [phone] documented as of this encounter Goals Goal [...] documented as of this encounter Care Teams Power Bender Operator Relationship Specialty Start Date End Date Marta Washington MD [address] [place] [phone] PCP - General Family Medicine 07/03/16 Tahir Siu, RebaD [address] [place] [phone] Pharmacist Internal Medicine 11/11/22 documented as of this encounter
--- OUTSIDE RECORDS SUMMARY | 2024-05-28 08:21 | XMS_ITS | Encounter Summary ---
Author Organization [employer] Address [address] [place] [address] Care Team Providers Care Instrument Lens Grinder Apprentice Name Role Phone Marta Washington MD Primary Care Provider [phone] Tahir Siu PharmD Unavailable [phone] Reason for Visit * Reason Onset Date Comments chart prep 05/06/2024 Encounter Details Date Type Department Care Team (Late st Contact Info) Description 05/06/2024 Telephone [facility] [address] [place], [place] [phone] Comfort Slade MA chart prep Social History Tobacco Use Types Packs/Day Years [...] AM EDT documented as of this encounter Miscellaneous Notes * Telephone Encounter - Comfort Slade MA - 05/06/2024 11:27 AM EST ..Chart Prep Labs: not applicable Images: not applicable Vaccines due: covid Referrals: complete Screenings: n/a Overdue care gaps: n/a documented in this encounter Plan of Treatment Upcoming Encounters Date Type Department Care Team (Late st Contact Info) Description 06/03/2024 9:00 AM EDT Medication Management [facility] [address] [place] [phone] Tahir Siu, RebaD [address] [place] [phone] 07/29/2024 9:00 AM EDT Office Visit [facility] [address] [place] [phone] Marta Washington MD [address] [place] [address] documented as of this encounter Goals Goal [...] documented as of this encounter Care Teams Instrument Lens Grinder Apprentice Relationship Specialty Start Date End Date Marta Washington MD [address] [place] [address] PCP - General Family Medicine 07/03/16 Tahir Siu PharmD [address] [place] [phone] Pharmacist Internal Medicine 11/11/22 documented as of this encounter
--- OUTSIDE RECORDS SUMMARY | 2024-05-28 08:21 | XMS_ITS | Clinical Summary ---
Author Organization [employer] Address [address] [place] [address] Care Team Providers Care Dental Sales Representative Name Role Phone Marta Washington MD Primary Care Provider [phone] Tahir Siu PharmD Unavailable [phone] Allergies No known active allergies Medications pantoprazole (ProtoNix) 20 MG EC tablet TAKE 1 TABLET BY MOUTH ONCE DAILY NEEDED 90 tablet 3 024 Active TRUEplus Lancets 33G misc TEST BLOOD SUGAR 5-6 TIMES PER DAY 100 each Active Continuous Glucose Metal Finisher (FreeStyle Romel 2 [place]) device Scan sensor every 8 hours 1 each Active Continuous Glucose Sensor (FreeStyle Romel 2 Sensor) misc Apply 1 sensor every 14 days 2 each Active glucose blood (FreeStyle Precision Vincent Test) test strip Use to test blood sugar 3-6 times daily 100 each 12 024 2024 Active Jardiance 10 MG TAKE 1 TABLET BY MOUTH EVERY MORNING 90 tablet 3 024 Active aspirin (Aspirin Low Dose) 81 MG EC tabletIndication s:History of stroke TAKE 1 TABLET BY MOUTH EVERY MORNING 90 tablet 1 024 Active atorvastatin (Lipitor) 40 MG tabletIndication s:Type 2 diabetes mellitus without complication, with long-term current use of insulin (CMS/HCC) TAKE 1 TABLET BY MOUTH AT BEDTIME 90 tablet 1 024 Active metFORMIN (Glucophage) 1000 MG tabletIndication s:Type 2 diabetes mellitus without complication, with long-term current use of insulin (CMS/HCC) TAKE 1 TABLET BY MOUTH TWICE DAILY IN THE MORNING AND IN THE EVENING WITH FOOD 180 tablet 1 Active docusate sodium (Colace) 100 MG capsuleIndicatio ns:Chronic idiopathic constipation TAKE 1 CAPSULE BY MOUTH TWICE DAILY IN THE MORNING AND AT BEDTIME 180 capsule 3 Active semaglutide (Ozempic) 2 MG/1.5ML solution pen-injector Inject 1 mg under the skin 1 (one) time per week. 2 each Active Alcohol Swabs (Alcohol Prep) 70 % padsIndications: T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, with long-term current use of insulin (CMS/HCC) USE FOUR TIMES DAILY NEEDED 200 each Active Ferrous Sulfate (iron) 325 (65 Fe) MG tablet TAKE 1 TABLET BY MOUTH TWICE DAILY IN THE MORNING AND IN THE EVENING WITH ORANGE JUICE 60 tablet 1 Active NovoLOG FLEXPEN 100 UNIT/ML penIndications:T ype 2 diabetes mellitus with hyperglycemia (CMS/HCC) INJECT 6 UNITS SUBCUTANEOUSLY WITH MEALS 15 mL 1 Active insulin glargine (Lantus SoloStar) 100 UNIT/ML penIndications:T 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, with long-term current use of insulin (CMS/HCC) Inject 24 units subcutaneously every evening 15 mL Active B-D UF III MINI PEN NEEDLES 31G X 5 MM miscIndications: Type 2 diabetes mellitus with hyperglycemia (CMS/HCC) USE DIRECTED FOUR TIMES DAILY 100 each Active losartan (Cozaar) 100 MG tablet TAKE 1 TABLET BY MOUTH EVERY MORNING 90 tablet 3 Active losartan (Cozaar) 100 MG tablet TAKE 1 TABLET BY MOUTH EVERY MORNING 90 tablet 3 024 2024 Discontinued Active Problems Problem Noted Date Diagnosed Date Macular drusen, left 04/19/2024 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 Chronic lacunar infarct of the left gan radiata. - continue being socially interactive. Assessment & Plan (01/28/2024 10:02 PM EST): - seemingly age-appropriate memory problem - possible vascular dementia - will check with his report checker for carotid US - due to his risk factors, will consider MRI or MRA. - MR Brain ordered 09/27/23 Assessment & Plan (10/30/2023 10:10 AM EDT): - seemingly age-appropriate memory problem - possible vascular dementia - will check with his report checker for carotid US - due to his risk factors, will consider MRI or MRA. Assessment & Plan (09/27/2023 6:15 AM EDT): - seemingly age-appropriate memory problem - possible vascular dementia - will check with his report checker for carotid US - due to his risk factors, will consider MRI or MRA. Dysphagia 09/23/2023 Assessment & Plan (01/28/2024 10:01 PM EST): - multifactorial (Hx CVA) - discussed about mastication muscle loss and need for eating slowly - continue GERD treatment - Barium swallow on 11/03/23 Trace laryngeal penetration seen with thin consistency barium. No subglottic aspiration was observed. Speech therapy provider recommends thin liquid, regular diet, small bites and sips, double swallow with supervision. Assessment & Plan (10/30/2023 10:08 AM EDT): - multifactorial (Hx CVA) - discussed about mastication muscle loss and need for eating slowly - continue GERD treatment - referred to modified barium swallow study Assessment & Plan (09/27/2023 6:17 AM EDT): - multifactorial (Hx CVA) - discussed about mastication muscle loss and need for eating slowly - continue GERD treatment - referred to modified barium swallow study Skin lesions 07/29/2023 Assessment & Plan (03/06/2024 6:23 AM EST): - history of skin cancer - seen by signwriter, Dr. 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 Assessment & Plan (09/26/2023 1:27 PM EDT): Oncologist: [facility], last seen in 02/27/22 Dx in 2019 -Pathology of neck mass [...] node, suggestive of clinical and radiological remission. Assessment & Plan (07/29/2023 9:42 AM EDT): Oncologist: [facility], last seen in 02/27/22 Dx in 2019 -Pathology of neck mass [...] node, suggestive of clinical and radiological remission. Assessment & Plan (03/10/2023 5:08 AM EST): Oncologist: [facility], last seen in 02/27/22 Dx in 2019 -Pathology of neck mass [...] node, suggestive of clinical and radiological remission. Assessment & Plan (12/15/2022 6:14 PM EDT): Oncologist: [facility], last seen in 02/27/22 Dx in 2019 -Pathology of neck mass [...] node, suggestive of clinical and radiological remission. At high risk for inadequate nutritional intake 0 07/23/2022 Assessment & Plan (12/15/2022 6:08 PM EDT): - in a setting of DM2 and dental / oral problem - prescribe Glucerna or Boost Glucose Control Assessment & Plan (07/23/2022 10:20 AM EDT): - in a setting of DM2 and dental / oral problem - prescribe Glucerna or Boost Glucose Control Right leg swelling 07/09/2022 Assessment & Plan (07/09/2022 3:45 PM EDT): Improved -elevate leg -reduce sodium intake -if it becomes more swollen and red, patient advised to seek further medical attention Tubular adenoma of colon 04/27/2022 Assessment & Plan (04/27/2022 7:07 AM EST): - Colonoscopy on 09/10/18. - Six polyps removed - tubular adenoma - Recommended to repeat in 2 years, which is overdue. He was referred to GI in 2021, but he states he does not need a colonoscopy anymore due to his age. Follicular non-Hodgkin's lymphoma 04/21/2022 Assessment & Plan (05/14/2024 5:43 AM EST): Oncologist: [facility], last seen 02/25/22 Dx in 2019 -Pathology [...] 05/11/24. If abnormal, will consider CT scan. Assessment & Plan (01/28/2024 10:03 PM EST): Oncologist: [facility], last seen 02/25/22 Dx in 2019 -Pathology [...] node, suggestive of clinical and radiological remission. Assessment & Plan (10/30/2023 10:10 AM EDT): Oncologist: [facility], last seen 02/25/22 Dx in 2019 -Pathology [...] node, suggestive of clinical and radiological remission. Assessment & Plan (09/26/2023 1:26 PM EDT): [facility]cologist: [facility], last seen 02/25/22 Dx in 2019 -Pathology [...] node, suggestive of clinical and radiological remission. Assessment & Plan (07/29/2023 9:42 AM EDT): Oncologist: [facility], last seen 02/25/22 Dx in 2019 -Pathology [...] node, suggestive of clinical and radiological remission. Assessment & Plan (09/23/2022 3:01 PM EDT): Oncologist: [facility], last seen 02/25/22 Dx in 2019 -Pathology [...] node, suggestive of clinical and radiological remission. Assessment & Plan (07/23/2022 10:20 AM EDT): [facility]ologist: [facility], last seen 02/25/22 Dx in 2019 -Pathology [...] node, suggestive of clinical and radiological remission. Assessment & Plan (04/27/2022 7:03 AM EST): [facility]cologist: [facility], last seen 02/25/22 Dx in 2019 -Pathology [...] node, suggestive of clinical and radiological remission. History of stroke 04/21/2022 Assessment & Plan (05/11/2024 8:43 AM EST): -Work on risk factor management / secondary prevention. Using ASA as antiplatelet agent. -Carotid US on 09/13/22 b/l stenosis 15-49% -MRI on 02/07/24 showed chronic lacunar infarct of the left gan radiata. Assessment & Plan (03/06/2024 6:25 AM EST): -Work on risk factor management / secondary prevention. Using ASA as antiplatelet agent. -Carotid US on 09/13/22 b/l stenosis 15-49% -MRI on 02/07/24 showed chronic lacunar infarct of the left gan radiata. Assessment & Plan (10/30/2023 10:10 AM EDT): -Work on risk factor management / secondary prevention. Using ASA as antiplatelet agent. -Carotid US on 09/13/22 b/l stenosis 15-49% Assessment & Plan (09/27/2023 6:39 AM EDT): -Work on risk factor management / secondary prevention. Using ASA as antiplatelet agent. -Carotid US on 09/13/22 b/l stenosis 15-49% Assessment & Plan (07/29/2023 9:42 AM EDT): -Work on risk factor management / secondary prevention. -Carotid US on 09/13/22 b/l stenosis 15-49% Assessment & Plan (03/10/2023 5:08 AM EST): -Work on risk factor management / secondary prevention. -Carotid US on 09/13/22 b/l stenosis 15-49% Assessment & Plan (12/15/2022 6:10 PM EDT): -Work on risk factor management / secondary prevention. -Carotid US on 09/13/22 b/l stenosis 15-49% Assessment & Plan (09/24/2022 12:41 PM EDT): -Work on risk factor management / secondary prevention. -Carotid US on 09/13/22 b/l stenosis 15-49% Assessment & Plan (07/23/2022 10:20 AM EDT): -Work on risk factor management / secondary prevention. -Carotid US on 08/08/21 b/l stenosis 15-49% Assessment & Plan (04/27/2022 7:00 AM EST): -Work on risk factor management / secondary prevention. -Carotid US on 08/08/21 b/l stenosis 15-49% Bilateral carotid artery stenosis 04/21/2022 Assessment & Plan (05/11/2024 8:42 AM EST): - Hx left side CVA - 12/29/23 Carotid US showed bilateral carotid stenosis, moderate 16-49%. - Continue working on secondary prevention / risk factor management Assessment & Plan (03/04/2024 5:06 PM EST): - Hx left side CVA - 12/29/23 Carotid US showed bilateral carotid stenosis, moderate 16-49%. - Continue working on secondary prevention / risk factor management Assessment & Plan (01/31/2024 6:18 AM EST): - Hx left side CVA - 12/29/23 Carotid US showed bilateral carotid stenosis, moderate 16-49%. - Continue working on secondary prevention / risk factor management Assessment & Plan (10/30/2023 10:07 AM EDT): - Hx left side CVA - 09/02/22 Carotid US showed bilateral carotid stenosis, moderate 16-49%. - Continue working on secondary prevention / risk factor management Assessment & Plan (09/26/2023 1:23 PM EDT): - Hx left side CVA - 09/02/22 Carotid US showed bilateral carotid stenosis, moderate 16-49%. - Continue working on secondary prevention / risk factor management Assessment & Plan (07/29/2023 9:40 AM EDT): - Hx left side CVA - 09/02/22 Carotid US showed bilateral carotid stenosis, moderate 16-49%. - Continue working on secondary prevention / risk factor management Assessment & Plan (03/10/2023 5:07 AM EST): - Hx left side CVA - 09/02/22 Carotid US showed bilateral carotid stenosis, moderate 16-49%. - Continue working on secondary prevention / risk factor management Assessment & Plan (12/15/2022 6:04 PM EDT): - Hx left side CVA - 09/02/22 Carotid US showed bilateral carotid stenosis, moderate 16-49%. - Continue working on secondary prevention / risk factor management Assessment & Plan (09/24/2022 12:40 PM EDT): - Hx left side CVA - 09/02/22 Carotid US showed bilateral carotid stenosis, moderate 16-49%. - Continue working on secondary prevention / risk factor management - Goal BP < 130 / 80 per ACC/AHA guideline, Treatment threshold 140/90 Assessment & Plan (07/09/2022 3:42 PM EDT): - Hx left side CVA - Last carotid US on 08/02/21 Right 16-49% stenosis; Left 16-49% stenosis - Continue working on secondary prevention / risk factor management - Goal BP < 130 / 80 per ACC/AHA guideline, Treatment threshold 140/90 Assessment & Plan (04/21/2022 5:59 PM EST): - Hx left side CVA - Last carotid US on 08/02/21 Right 16-49% stenosis; Left 16-49% stenosis - Continue working on secondary prevention / risk factor management - Goal BP < 130 / 80 per ACC/AHA guideline, Treatment threshold 140/90 Aortic valve stenosis 10/31/2016 Assessment & Plan (05/11/2024 8:42 AM EST): - [facility] -TTE on 07/24/21 Moderate [...] area 1.1 cm2, mod thickening of MV. Assessment & Plan (03/04/2024 5:06 PM EST): - [facility] with annual [facility]ogram -TTE on 07/24/21 Moderate [...] area 1.1 cm2, mod thickening of MV. Assessment & Plan (01/31/2024 6:19 AM EST): - [facility] with annual echocardiogram -TTE on 07/24/21 Moderate [...] area 1.1 cm2, mod thickening of MV. Assessment & Plan (10/30/2023 10:06 AM EDT): - Followed by [facility] with annual echocardiogram -TTE on 07/24/21 Moderate LVH. EF 60-65%. Moderate aortic stenosis. Mild aortic regurgitation -TTE on 08/09/22. Normal left ventricular function EF 60-65%. Showed mild aortic stenosis. - Optimize risk factor management Assessment & Plan (07/29/2023 9:40 AM EDT): - Followed by [facility] with annual echocardiogram -TTE on 07/24/21 Moderate LVH. EF 60-65%. Moderate aortic stenosis. Mild aortic regurgitation -TTE on 08/09/22. Normal left ventricular function EF 60-65%. Showed mild aortic stenosis. - Optimize risk factor management Assessment & Plan (03/10/2023 5:07 AM EST): - Followed by [facility] with annual echocardiogram -TTE on 07/24/21 Moderate LVH. EF 60-65%. Moderate aortic stenosis. Mild aortic regurgitation -TTE on 08/09/22. Normal left ventricular function EF 60-65%. Showed mild aortic stenosis. - Optimize risk factor management Assessment & Plan (12/15/2022 6:03 PM EDT): - Followed by [facility] with annual echocardiogram -TTE on 07/24/21 Moderate LVH. EF 60-65%. Moderate aortic stenosis. Mild aortic regurgitation -TTE on 08/09/22. Normal left ventricular function EF 60-65%. Showed mild aortic stenosis. - Optimize risk factor management Assessment & Plan (09/24/2022 12:39 PM EDT): - Followed by [facility] with annual echocardiogram -TTE on 07/24/21 Moderate LVH. EF 60-65%. Moderate aortic stenosis. Mild aortic regurgitation -TTE on 08/09/22. Normal left ventricular function EF 60-65%. Showed mild aortic stenosis. - Optimize risk factor management Assessment & Plan (07/09/2022 3:43 PM EDT): - [facility]ed [facility] with annual [facility] - Last echo on 07/24/21 Moderate LVH. EF 60-65%. Moderate aortic stenosis. Mild aortic regurgitation - Optimize risk factor management Assessment & Plan (04/27/2022 6:53 AM EST): - [facility] with annual echocardi[facility] - Last echo on 07/24/21 Moderate LVH. EF 60-65%. Moderate aortic stenosis. Mild aortic regurgitation - Optimize risk factor management Obstructive sleep apnea syndrome 10/31/2016 Assessment & Plan (03/06/2024 6:28 AM EST): - CPAP titration study completed 02/10/17: CPAP pressure at 14 cm. -12/03/23 Sleep study, Mild sleep apnea. May be treated with conservative management. In presence of significant comorbidities, may need to be started on CPAP therapy, which can be started at autoPAP mode and pressure setting 6-20 cm followed by close monitoring for compliance and benefits. - still waiting for a new CPAP Assessment & Plan (01/28/2024 9:56 PM EST): - CPAP titration study completed 02/10/17: CPAP pressure at 14 cm. - Pt is requesting a new CPAP machine since current CPAP is old and started having a problem - Sleep study was ordered in November 2022, and re-ordered in September 2023 -12/03/23 Sleep study, Mild sleep apnea. May be treated with conservative management. In presence of significant comorbidities, may need to be started on CPAP therapy, which can be started at autoPAP mode and pressure setting 6-20 cm followed by close monitoring for compliance and benefits. Assessment & Plan (10/31/2023 5:52 PM EDT): - CPAP titration study completed 02/10/17: CPAP pressure at 14 cm. - Pt is requesting a new CPAP machine since current CPAP is old and started having a problem - Sleep study was ordered in November 2022, and re-ordered in September 2023 Assessment & Plan (09/27/2023 6:11 AM EDT): - CPAP titration study completed 02/10/17: CPAP pressure at 14 cm. - Pt is requesting a new CPAP machine since current CPAP is old and started having a problem - Sleep study was ordered in November 2022; check its status, likely need to re-order Assessment & Plan (07/29/2023 9:40 AM EDT): - CPAP titration study completed 02/10/17: CPAP pressure at 14 cm. - Pt is requesting a new CPAP machine since current CPAP is old and started having a problem - Update sleep study Assessment & Plan (03/10/2023 5:05 AM EST): - CPAP titration study completed 02/10/17: CPAP pressure at 14 cm. - Pt is requesting a new CPAP machine since current CPAP is old and started having a problem - Sleep study was ordered in Nov 2022 Assessment & Plan (12/15/2022 6:03 PM EDT): - CPAP titration study completed 02/10/17: CPAP pressure at 14 cm. - Pt is requesting a new CPAP machine since current CPAP is old and started having a problem - Update sleep study Assessment & Plan (09/23/2022 3:02 PM EDT): - CPAP titration study completed 02/10/17: CPAP pressure at 14 cm. - Continue using CPAP device nightly. Assessment & Plan (07/09/2022 3:57 PM EDT): - CPAP titration study completed 02/10/17: CPAP pressure at 14 cm. - Continue using CPAP device nightly. Assessment & Plan (04/27/2022 6:40 AM EST): - CPAP titration study completed 02/10/17: CPAP pressure at 14 cm. - Continue using CPAP device nightly. Peripheral venous insufficiency 10/31/2016 Assessment & Plan (01/28/2024 9:59 PM EST): - Followed by [facility] provider - Last venous study in in June 2020 showed b/l GSV incomptence - Compression stocking / leg elevation / DASH diet / adequate physical activity Assessment & Plan (07/29/2023 9:40 AM EDT): - Followed by [facility] provider - Last venous study in in June 2020 showed b/l GSV incomptence - Compression stocking / leg elevation / DASH diet / adequate physical activity Assessment & Plan (03/10/2023 5:06 AM EST): - Followed by [facility] provider - Last venous study in in June 2020 showed b/l GSV incomptence - Compression stocking / leg elevation / DASH diet / adequate physical activity Assessment & Plan (12/15/2022 6:06 PM EDT): - Followed by [facility] provider - Last venous study in in June 2020 showed b/l GSV incomptence - Compression stocking / leg elevation / DASH diet / adequate physical activity Assessment & Plan (09/23/2022 3:02 PM EDT): - Followed by [facility] provider - Last venous study in in June 2020 showed b/l GSV incomptence - Compression stocking / leg elevation / DASH diet / adequate physical activity Assessment & Plan (07/09/2022 3:42 PM EDT): - Followed by [facility] provider - Last venous study in in June 2020 showed b/l GSV incomptence - Compression stocking / leg elevation / DASH diet / adequate physical activity Assessment & Plan (04/27/2022 6:42 AM EST): - Followed by [facility] provider - Last venous study in in June 2020 showed b/l GSV incomptence - Compression stocking / leg elevation / DASH diet / adequate physical activity Type 2 diabetes mellitus 03/08/2015 Assessment & Plan (05/14/2024 5:46 AM EST): A1C 8.4% on 05/11/24, 8.5% on 01/26/24 - continue Lantus 30 unit qHS - continue Novolog to 6 units with meals - continue metformin ER 1000 mg bid. - continue Jardiance 10 mg daily for cardiovascular benefit - continue Semaglutide, will increase its dose - consider adding SGLT2i - continue working on lifestyle modifications - patient has CGM Freestyle Romel DM Maintenance - Last eye exam: Apr [...] units, rather than 25 units on instruction. Assessment & Plan (03/06/2024 6:22 AM EST): A1C 8.5% on 01/26/24 - continue Lantus 30 unit qHS - continue Novolog to 6 units with meals - continue metformin ER 1000 mg bid. - continue Jardiance 10 mg daily for cardiovascular benefit - continue Semaglutide, will increase its dose - consider adding SGLT2i - continue working on lifestyle modifications - patient has CGM Freestyle Romel DM Maintenance - Last eye exam: Upcoming appointment in Mar 2024. Pt has a Hx of benign neoplasm of R eye. - Last foot exam: 10/30/23, high-risk - Last microalbumin test: 09/24/23, UACR 35.7 - Last lipid profile: 09/24/23 - Last dental exam: ?scheduled for 2022 CDTM visit with our pharmacist, Tahir Siu, PharmD, on 12/03/23. Patient reported that he has been using Lantus 30 units, rather than 25 units on instruction. Assessment & Plan (01/31/2024 6:26 AM EST): A1C 8.5% on 01/26/24 - continue Lantus 30 unit qHS - continue Novolog to 6 units with meals - continue metformin ER 1000 mg bid. - continue Jardiance 10 mg daily for cardiovascular benefit - continue dulaglutide (Trulicity), and titrate up as tolerated - continue working on lifestyle modifications - patient has CGM Freestyle Romel DM Maintenance - Last eye exam: Upcoming appointment in Mar 2024. Pt has a Hx of benign neoplasm of R eye. - Last foot exam: 10/30/23, high-risk - Last microalbumin test: 09/24/23, UACR 35.7 - Last lipid profile: 09/24/23 - Last dental exam: ?scheduled for 2022 CDTM visit with our pharmacist, Tahir Siu, PharmD, on 12/03/23. Patient reported that he has been using Lantus 30 units, rather than 25 units on instruction. Assessment & Plan (10/30/2023 10:32 AM EDT): A1C 8.5% on 10/30/23 - continue Lantus 25 unit qHS - continue Novolog to 6 units with meals - continue metformin ER 1000 mg bid. - continue Jardiance 10 mg daily for cardiovascular benefit - add GLP1-RA - continue working on lifestyle modifications - will use freestyle romel glucometer DM Maintenance - Last eye exam: 06/14/20 No diabetic retinopathy and mild cataract. Pt has a Hx of benign neoplasm of R eye. - Last foot exam: 10/30/23, high-risk - Last microalbumin test: 09/24/23, UACR 35.7 - Last lipid profile: 09/24/23 - Last dental exam: ?scheduled for 2022 Assessment & Plan (09/27/2023 6:37 AM EDT): A1C 10.4% on 09/24/23 - continue Lantus 25 unit qHS - continue Novolog to 6 units with meals - continue metformin ER 1000 mg bid. - continue Jardiance 10 mg daily for cardiovascular benefit - add GLP1-RA - continue working on lifestyle modifications - will use freestyle romle glucometer DM Maintenance - Last eye exam: 06/14/20 No diabetic retinopathy and mild cataract. Pt has a Hx of benign neoplasm of R eye. - Last foot exam: 12/11/22, high-risk - Last microalbumin test: 09/24/23 - Last lipid profile: 09/24/23 - Last dental exam: ?scheduled for 2022 Assessment & Plan (08/04/2023 6:27 AM EDT): A1C 10.5% on 07/21/23 - continue Lantus 25 unit qHS - continue Novolog to 6 units with meals - continue metformin ER 1000 mg bid. - continue Jardiance 10 mg daily for cardiovascular benefit - add GLP1-RA - continue working on lifestyle modifications - will use freestyle romel glucometer DM Maintenance - Last eye exam: 06/14/20 No diabetic retinopathy and mild cataract. Pt has a Hx of benign neoplasm of R eye. - Last foot exam: 12/11/22, high-risk - Last microalbumin test: 01/21/23 - Last lipid profile: 01/21/23 - Last dental exam: ?scheduled for 2022 Assessment & Plan (03/10/2023 5:07 AM EST): A1C 8.5% on 12/11/22, no significant change from 8.8% in September 2022. Hypoglycemic episode. - decrease Lantus to 25 unit qHS - continue Novolog to 6 units with meals - continue metformin ER 1000 mg bid. - continue Jardiance 10 mg daily for cardiovascular benefit - continue working on lifestyle modifications - will use freestyle romel glucometer DM Maintenance - Last eye exam: 06/14/20 No diabetic retinopathy and mild cataract. Pt has a Hx of benign neoplasm of R eye. - Last foot exam: 12/11/22, high-risk - Last microalbumin test: 01/02/22 UACR 12 - Last lipid profile: 01/02/22 TC 128; TG 79; HDL 55; LDL 58 - Last dental exam: ?scheduled for 2022 - Follow up in 3-4 mo or sooner prn Assessment & Plan (12/15/2022 6:17 PM EDT): A1C 8.5% on 12/11/22, no significant change from 8.8% in September 2022. Hypoglycemic episode. - decrease Lantus to 25 unit qHS - continue Novolog to 6 units with meals - continue metformin ER 1000 mg bid. - continue Jardiance 10 mg daily for cardiovascular benefit - continue working on lifestyle modifications - will use freestyle romel glucometer DM Maintenance - Last eye exam: 06/14/20 No diabetic retinopathy and mild cataract. Pt has a Hx of benign neoplasm of R eye. - Last foot exam: 12/11/22, high-risk - Last microalbumin test: 01/02/22 UACR 12 - Last lipid profile: 01/02/22 TC 128; TG 79; HDL 55; LDL 58 - Last dental exam: ?scheduled for 2022 - Follow up in 3-4 mo or sooner prn Assessment & Plan (09/23/2022 3:06 PM EDT): A1C 8.3% on 07/09/22, trending up from 7.7% on 04/21/22, no hypoglycemic episodes - continue Lantus to 32 unit qHS - continue Novolog to 6 units with meals - Continue metformin ER 1000 mg bid. - continue Jardiance 10 mg daily for cardiovascular benefit - continue working on lifestyle modifications - will use freestyle romel glucometer DM Maintenance - Last eye exam: 06/14/20 No diabetic retinopathy and mild cataract. Pt has a Hx of benign neoplasm of R eye. - Last foot exam: 07/16/21, high-risk - Last microalbumin test: 01/02/22 UACR 12 - Last lipid profile: 01/02/22 TC 128; TG 79; HDL 55; LDL 58 - Last dental exam: ?scheduled for 2022 - Follow up in 3-4 mo or sooner prn Assessment & Plan (07/09/2022 3:41 PM EDT): A1C 8.3% on 07/09/22, trending up from 7.7% on 04/21/22, no hypoglycemic episodes - continue Lantus to 32 unit qHS - continue Novolog to 6 units with meals - Continue metformin ER 1000 mg bid. - continue Jardiance 10 mg daily for cardiovascular benefit - continue working on lifestyle modifications DM Maintenance - Last eye exam: 06/14/20 No diabetic retinopathy and mild cataract. Pt has a Hx of benign neoplasm of R eye. - Last foot exam: 07/16/21, high-risk - Last microalbumin test: 01/02/22 UACR 12 - Last lipid profile: 01/02/22 TC 128; TG 79; HDL 55; LDL 58 - Last dental exam: ?scheduled for 2022 - Follow up in 3-4 mo or sooner prn Assessment & Plan (04/27/2022 6:57 AM EST): A1C 7.7% today 04/21/22, no hypoglycemic episodes - continue Lantus to 32 unit qHS - continue Novolog to 6 units with meals - Continue metformin ER 1000 mg bid. - continue Jardiance 10 mg daily for cardiovascular benefit - continue working on lifestyle modifications DM Maintenance - Last eye exam: 06/14/20 No diabetic retinopathy and mild cataract. Pt has a Hx of benign neoplasm of R eye. 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 - ordered a hospital bed at home for treatment of his medical conditions and safety. - seen by report checker in Dec 2023 after carotid US and echo, follow up in 1 year with report checker Assessment & Plan (03/04/2024 5:05 PM EST): - left side CVA with right hemiparesis - continue risk factor management - most recent carotid US on 12/29/23 showed moderate b/l carotid stenosis, 16- 49%, stable. - ordered a hospital bed at home for treatment of his medical conditions and safety. - seen by report checker in Dec 2023 after carotid US and echo, follow up in 1 year with report checker Assessment & Plan (01/31/2024 6:15 AM EST): - left side CVA with right hemiparesis - continue risk factor management - most recent carotid US on 12/29/23 showed moderate b/l carotid stenosis, 16- 49%, stable. - ordered a hospital bed at home for treatment of his medical conditions and safety. - seen by report checker in Dec 2023 after carotid US and echo, follow up in 1 year with report checker Assessment & Plan (09/27/2023 6:12 AM EDT): - left side CVA with right hemiparesis - continue risk factor management - most recent carotid US on 09/13/22 showed moderate b/l carotid stenosis; will ask his report checker to update US. - ordered a hospital bed at home for treatment of his medical conditions and safety. Assessment & Plan (07/29/2023 9:40 AM EDT): - left side CVA with right hemiparesis - continue risk factor management - most recent carotid US on 09/13/22 showed moderate b/l carotid stenosis - ordered a hospital bed at home for treatment of his medical conditions and safety. Assessment & Plan (03/10/2023 5:06 AM EST): - left side CVA with right hemiparesis - continue risk factor management - most recent carotid US on 09/13/22 showed moderate b/l carotid stenosis - ordered a hospital bed at home for treatment of his medical conditions and safety. Assessment & Plan (12/15/2022 6:10 PM EDT): - left side CVA with right hemiparesis - continue risk factor management - most recent carotid US on 09/13/22 showed moderate b/l carotid stenosis - ordered a hospital bed at home for treatment of his medical conditions and safety. Assessment & Plan (09/24/2022 12:37 PM EDT): - left side CVA with right hemiparesis - continue risk factor management - most recent carotid US on 09/13/22 showed moderate b/l carotid stenosis - ordered a hospital bed at home for treatment of his medical conditions and safety. Assessment & Plan (07/23/2022 10:22 AM EDT): - left side CVA with right hemiparesis - continue risk factor management - he will benefit from having a hospital bed at home for treatment of his medical conditions and safety. Assessment & Plan (04/27/2022 7:10 AM EST): - left side CVA with right hemiparesis - continue risk factor management - he will benefit from having a hospital bed at home for treatment of his medical conditions and safety. Dyslipidemia 01/09/2012 Assessment & Plan (05/14/2024 5:42 AM EST): - Last lipid profile: 09/24/23 - According to ACC/AHA guideline, high-intensity statin therapy is recommended. - Continue atorvastatin 40 mg qhs. Consider increasing to 80 mg qhs - Emphasized the importance of lifestyle modification. Assessment & Plan (03/06/2024 6:27 AM EST): - Last lipid profile: 09/24/23 - Current medication: pravastatin 80 mg qhs. - According to ACC/AHA guideline, high -intensity statin therapy is recommended. - Continue atorvastatin 40 mg qhs. Consider increasing to 80 mg qhs - Emphasized the importance of lifestyle modification. Assessment & Plan (01/31/2024 6:27 AM EST): - Last lipid profile: 09/24/23 - Current medication: pravastatin 80 mg qhs. - According to ACC/AHA guideline, high -intensity statin therapy is recommended. Pt does not want to change medication at this time. - Continue pravastatin 80 mg qhs. - Emphasized the importance of lifestyle modification. Assessment & Plan (10/30/2023 10:32 AM EDT): - Last lipid profile: 09/24/23 - Current medication: pravastatin 80 mg qhs. - According to ACC/AHA guideline, high -intensity statin therapy is recommended. Pt does not want to change medication at this time. - Continue pravastatin 80 mg qhs. - Emphasized the importance of lifestyle modification. Assessment & Plan (09/26/2023 1:26 PM EDT): - Last lipid profile:01/21/23 - Current medication: pravastatin 80 mg qhs. - According to ACC/AHA guideline, high -intensity statin therapy is recommended. Pt does not want to change medication at this time. - Continue pravastatin 80 mg qhs. - Emphasized the importance of lifestyle modification. Assessment & Plan (08/04/2023 6:27 AM EDT): - Last lipid profile:01/21/23 - Current medication: pravastatin 80 mg qhs. - According to ACC/AHA guideline, high -intensity statin therapy is recommended. Pt does not want to change medication at this time. - Continue pravastatin 80 mg qhs. - Emphasized the importance of lifestyle modification. Assessment & Plan (03/10/2023 5:09 AM EST): - Last lipid profile:01/02/22 TC 128; TG 79; HDL 55; LDL 58 LFT wnl - Current medication: pravastatin 80 mg qhs. - According to ACC/AHA guideline, high -intensity statin therapy is recommended. Pt does not want to change medication at this time. - Continue pravastatin 80 mg qhs. - Emphasized the importance of lifestyle modification. Assessment & Plan (09/24/2022 12:40 PM EDT): - Last lipid profile:01/02/22 TC 128; TG 79; HDL 55; LDL 58 LFT wnl - Current medication: pravastatin 80 mg qhs. - According to ACC/AHA guideline, high -intensity statin therapy is recommended. Pt does not want to change medication at this time. - Continue pravastatin 80 mg qhs. - Emphasized the importance of lifestyle modification. Assessment & Plan (07/23/2022 10:21 AM EDT): - Last lipid profile:01/02/22 TC 128; TG 79; HDL 55; LDL 58 LFT wnl - Current medication: pravastatin 80 mg qhs. - According to ACC/AHA guideline, high -intensity statin therapy is recommended. Pt does not want to change medication at this time. - Continue pravastatin 80 mg qhs. - Emphasized the importance of lifestyle modification. Assessment & Plan (04/27/2022 7:05 AM EST): - Last lipid profile:01/02/22 TC 128; TG 79; HDL 55; LDL 58 LFT wnl - Current medication: pravastatin 80 mg qhs. - According to ACC/AHA guideline, high -intensity statin therapy is recommended. Pt does not want to change medication at this time. - Continue pravastatin 80 mg qhs. - Emphasized the importance of lifestyle modification. 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 - Ordered Comprehensive Metabolic Panel 05/11/24 Assessment & Plan (03/04/2024 5:06 PM EST): - Goal BP < 140/90 per JNC-8, [...] appointment with Tahir Siu PharmD, for CDTM. Assessment & Plan (01/31/2024 6:17 AM EST): - Goal BP < 140/90 per JNC-8, [...] appointment with Tahir Siu PharmD, for CDTM. Assessment & Plan (10/30/2023 10:07 AM EDT): - Goal BP < 140/90 per JNC-8, < 130/80 per ACC/AHA guideline (Tx threshold > 140/90 seconday CVA prevention) - Last echo in July 2021 Moderate concentric LVH. LVEF 60-65%; Moderately calcified aortic valve, moderate aortic stenosis with mild aortic regurgitation. - Continue working on life style modifications. - Continue checking BP at home - Continue losartan to 100 mg daily. - Continue furosemide 20 mg every other day. Consider switching to torsemide - Medication Hx: amlodipine discontinued in Oct 2016 due to LE swelling. - Reduce sodium consumption. - Keep appointment with Tahir Siu PharmD, for CDTM. Assessment & Plan (09/27/2023 6:13 AM EDT): - Goal BP < 140/90 per JNC-8, < 130/80 per ACC/AHA guideline (Tx threshold > 140/90 seconday CVA prevention) - Last echo in July 2021 Moderate concentric LVH. LVEF 60-65%; Moderately calcified aortic valve, moderate aortic stenosis with mild aortic regurgitation. - Continue working on life style modifications. - Continue checking BP at home - Continue losartan to 100 mg daily. - Continue furosemide 20 mg every other day. Consider switching to torsemide - Medication Hx: amlodipine discontinued in Oct 2016 due to LE swelling. - Reduce sodium consumption. - Keep appointment with Tahir Siu PharmD, for CDTM. Assessment & Plan (07/29/2023 9:40 AM EDT): - Goal BP < 140/90 per JNC-8, < 130/80 per ACC/AHA guideline (Tx threshold > 140/90 seconday CVA prevention) - Last echo in July 2021 Moderate concentric LVH. LVEF 60-65%; Moderately calcified aortic valve, moderate aortic stenosis with mild aortic regurgitation. - Continue working on life style modifications. - Continue checking BP at home - Continue losartan to 100 mg daily. - Continue furosemide 20 mg every other day. Consider switching to torsemide - Medication Hx: amlodipine discontinued in Oct 2016 due to LE swelling. - Reduce sodium consumption. - Follow-up in 3-6 mo or sooner prn Assessment & Plan (03/10/2023 5:06 AM EST): - Goal BP < 140/90 per JNC-8, < 130/80 per ACC/AHA guideline (Tx threshold > 140/90 seconday CVA prevention) - Last echo in July 2021 Moderate concentric LVH. LVEF 60-65%; Moderately calcified aortic valve, moderate aortic stenosis with mild aortic regurgitation. - Continue working on life style modifications. - Continue checking BP at home - Continue losartan to 100 mg daily. - Continue furosemide 20 mg every other day. Consider switching to torsemide - Medication Hx: amlodipine discontinued in Oct 2016 due to LE swelling. - Reduce sodium consumption. - Follow-up in 3-6 mo or sooner prn Assessment & Plan (12/15/2022 6:05 PM EDT): - Goal BP < 140/90 per JNC-8, < 130/80 per ACC/AHA guideline (Tx threshold > 140/90 seconday CVA prevention) - Last echo in July 2021 Moderate concentric LVH. LVEF 60-65%; Moderately calcified aortic valve, moderate aortic stenosis with mild aortic regurgitation. - Continue working on life style modifications. - Continue checking BP at home - Continue losartan to 100 mg daily. - Continue furosemide 20 mg every other day. Consider switching to torsemide - Medication Hx: amlodipine discontinued in Oct 2016 due to LE swelling. - Reduce sodium consumption. - Follow-up in 3-6 mo or sooner prn Assessment & Plan (09/23/2022 3:01 PM EDT): - Goal BP < 140/90 per JNC-8, < 130/80 per ACC/AHA guideline (Tx threshold > 140/90 seconday CVA prevention) - Last echo in July 2021 Moderate concentric LVH. LVEF 60-65%; Moderately calcified aortic valve, moderate aortic stenosis with mild aortic regurgitation. - Continue working on life style modifications. - Continue checking BP at home - Continue losartan to 100 mg daily. - Continue furosemide 20 mg every other day. - Medication Hx: amlodipine discontinued in Oct 2016 due to LE swelling. - Reduce sodium consumption. - Follow-up in 3-6 mo or sooner prn Assessment & Plan (07/09/2022 3:25 PM EDT): - Goal BP < 140/90 per JNC-8, < 130/80 per ACC/AHA guideline (Tx threshold > 140/90 seconday CVA prevention) - Last echo in July 2021 Moderate concentric LVH. LVEF 60-65%; Moderately calcified aortic valve, moderate aortic stenosis with mild aortic regurgitation. - Continue working on life style modifications. - Continue checking BP at home - Continue losartan to 100 mg daily. - Continue furosemide 20 mg every other day. - Medication Hx: amlodipine discontinued in Oct 2016 due to LE swelling. - Reduce sodium consumption. - Follow-up in 3-6 mo or sooner prn Assessment & Plan (04/27/2022 6:48 AM EST): - Goal BP < 140/90 per JNC-8, < 130/80 per ACC/AHA guideline (Tx threshold > 140/90 seconday CVA prevention) - Last echo in July 2021 Moderate concentric LVH. LVEF 60-65%; Moderately calcified aortic valve, moderate aortic stenosis with mild aortic regurgitation. - Continue working on life style modifications. - Continue checking BP at home - Continue losartan to 100 mg daily. - Continue furosemide 20 mg every other day. - Medication Hx: amlodipine discontinued in Oct 2016 due to LE swelling. - Reduce sodium consumption. - Follow-up in 3-6 mo or sooner prn Obesity 10/16/2011 Assessment & Plan (07/29/2023 9:41 AM EDT): - continue working on lifestyle modifications - comorbidity: BOBBY, HTN, DM2 Assessment & Plan (04/27/2022 6:58 AM EST): - continue working on lifestyle modifications - comorbidity: BOBBY, HTN, DM2 Chronic urticaria 09/30/2011 Encounters Date Type Department Care Team Description 05/27/2024 Orders Only [facility] [address] [facility] [place] [place] [address] Marta Washington MD T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, with long-term current use of insulin ([facility]) (Primary Dx); Primary hypertension 05/26/2024 Orders Only [facility] MEDICINE [address] [place] [address] Marta Washington MD 05/25/2024 Telephone [facility] MEDICINE [address] [place] [address] Marta Washington MD 05/16/2024 Refill [facility] [address] [facility] [place] [address] Marta Washington MD 05/12/2024 Telephone [facility] MEDICINE [address] [place] [address] Marta Washington MD Prior Authorization (DME: CPAP Order: [facility]) 05/11/2024 9:15 AM EST Office Visit [facility] MEDICINE [address] [place] [address] Marta Washington MD Primary hypertension (Primary Dx); Bilateral carotid artery [...] (BMI) of 34.0 to 34.9 in adult 05/11/2024 Travel 05/06/2024 Telephone [facility] MEDICINE [address] [place] [address] Comfort Slade MA chart prep 04/26/2024 Telephone [facility] ADULT DENTAL [address] [place] [address] Hayden Bal DDS 04/21/2024 Refill [facility] MEDICINE [address] [place] [address] Marta Washington MD Type 2 diabetes mellitus with hyperglycemia ([facility]) 04/21/2024 Travel 04/01/2024 9:00 AM EST Office Visit [facility] OPTOMETRY [address] [place] [address] Randall, Melany, OD Type 2 diabetes mellitus without ophthalmic manifestations (CMS/HCC) (Primary Dx); Choroidal nevus of left eye; Macular drusen, left; Nuclear senile cataract of both eyes; Presbyopia of both eyes 04/01/2024 Travel 03/31/2024 Telephone [facility] MEDICINE [address] [place] [address] Marta Washington MD 03/18/2024 Refill [facility] MEDICINE [address] [place] [address] Lillie Whitman MD Type 2 diabetes mellitus with hyperglycemia ([facility]) 03/17/2024 Refill [facility] MEDICINE [address] [place] [address] Marta Washington MD 03/12/2024 Refill [facility] MEDICINE [address] [place] [address] Marta Washington MD T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, with long-term current use of insulin (CMS/HCC) 03/03/2024 9:15 AM EST Office Visit [facility] MEDICINE [address] [place] [address] Marta Washington MD Obstructive sleep apnea syndrome (Primary Dx); Primary hypertension; T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, with long-term current use of insulin (CMS/HCC); History of stroke; Memory problem; Dyslipidemia; Hemiparesis of right dominant side as late effect of cerebral infarction (CMS/HCC); Nonrheumatic aortic valve stenosis; Bilateral carotid artery stenosis; Skin lesions; Encounter for immunization 03/03/2024 Travel 03/02/2024 Telephone [facility] MEDICINE [address] [place] [address] Comfort Slade [place] chart prep from Last 3 Months Immunizations Name Administration Dates Next Due Hep B, adult 03/13/2017,08/23/2016,07/22/2016 Influenza High-dose Quadriva lent Preservative Free 12/09/2022,01/10/2020,12/03/2019 Influenza Injectable Quadriv alant Preservative Free IIV4 MDCK 02/21/2021 Influenza injectable quadriv alent IIV4 with preservative 01/30/2017 Influenza injectable quadriv alent preservative free 03/19/2018 Influenza, High Dose Seasona l, Preservative Free 03/03/2024,02/08/2019 Influenza, IIV3, injectable 12/10/2010, 0,12/23/2008 Influenza, Split (incl. mira fied surface antigen) 01/09/2012 Pfizer Covid-19 Vaccine 12+ 03/03/2024 Pneumococcal Conjugate PCV 13 12/13/2014 Pneumococcal Polysaccharide PPSV23 06/30/2009 RSV Bivalent 04/21/2024 TD (adult), 2 Lf tetanus tox oid, preservative free, adsorbed 06/30/2009 Tdap 07/29/2023,01/09/2012 Zoster, Recombinant 03/04/2022,01/02/2022 Zoster, live 01/30/2017 Social History Tobacco Use Types Packs/Day Years Used Date Smoking Tobacco: Never Passive Smoke Exposure: Never Smokeless Tobacco: Never Tobacco Cessation:Counseling Given: Not Answered Alcohol Answer Date Recorded Frequency of Alcohol Consumption Not on file 10/30/2023 Average Number of Drinks Not on file 024 Frequency of Binge Drinking Not on file 080 10/2023 Score 0 10/30/2023 Depression Answer Date [...] Orientation Straight 01/21/2022 10 :20 AM EDT Last Filed Vital Signs Vital Sign Reading Time Taken Comments Blood Pressure 132/88 05/11/2024 9:11 AM EST Pulse 97 05/11/2024 9:04 AM EST Temperature 36.1 ??C (96.9 ??F) 05/11/2024 9:04 AM ES T Respiratory Rate 17 05/11/2024 9:04 AM EST Oxygen Saturation 98% 05/11/2024 9:04 AM EST Inhaled Oxygen Concentration - - Weight 106 kg (233 lb) 05/11/2024 9:04 AM EST Height 174.6 cm (5' 8.75 ) 01/26/2024 9:36 AM ES T Body Mass Index 34.66 01/26/2024 9:36 AM EST Plan of Treatment Upcoming Encounters Date Type Department Care Team (Late st Contact Info) Description 06/03/2024 9:00 AM EDT Medication Management [facility] MEDICINE [address] [place] [address] Tahir Siu, RebaD [address] [place] [address] 07/29/2024 9:00 AM EDT Office Visit [facility] MEDICINE [address] [place] [address] Marta Washington MD [address] [place] [address] Health Maintenance Due Date Last Done Comments Dental Oral Exam 05/25/2020 11/25/2019, 01/2017, 08/21/2016 Dental Prophylaxis 03/23/2022 09/20/2021 Dental X-Ray: Bitewings 09/21/2022 09/21/19 22, 11/25/2019, 08/21/2016 Dental X-Ray: Full Mouth 11/25/2022 020, 09/12/2017, 08/21/2016 COVID-19 Vaccine ( season) 2024 03/03/2024, 02/05/2021, 06/01/2020, Additional history exists SDOH Screening 07/20/2024 07/21/2023 Depression Screening 07/28/2024 07/29/2023, 07/29/19 24 Diabetes: Hemoglobin A1C 08/08/2024 025, 01/26/2024, 10/30/2023, Additional history exists Diabetes: Urine Protein Screening 09/23/2024 09/24/2023, 01/21/2023, 01/02/2022, Additional history exists Lipid Panel 09/23/2024 09/24/2023, 12/24, 01/02/2022, Additional history exists Alcohol/Substance Use Screening 10/29/2024 10/30/2023 Diabetes: Foot Exam 10/29/2024 10/30/2023, 10/30/2023, 10/30/2023, Additional history exists Tobacco Screening 05/11/2025 05/11/2024 Eye Exam 04/01/2026 04/01/2024, 11/2024, 04/01/2024, Additional history exists DTaP/Tdap/Td Vaccines (3 - Td or Tdap) 07/28/2033 07/29/2023, 01/09/2012, 06/30/2009 Pneumococcal Vaccine: 50+ Years Completed 12/13/2014, 06/30/2009 Hepatitis B Vaccines Completed 03/13/2017, 08/23/2016, 07/22/2016 Zoster Vaccines Completed 03/04/2022, 12/22, 01/30/2017 Influenza Vaccine Completed 03/03/2024, , 02/21/2021, Additional history exists RSV Patients and Patients Aged 60 years or older Completed 04/21/2024 HIB Vaccines Aged Out No longer eligi ble based on patient's age to complete this topic HPV Vaccines Aged Out No longer eligi ble based on patient's age to complete this topic Hepatitis A Vaccines Aged Out No long er eligible based on patient's age to complete this topic IPV Vaccines Aged Out No longer eligi ble based on patient's age to complete this topic Meningococcal Vaccine Aged Out No roshan ariel eligible based on patient's age to complete this topic RSV under 20 months Aged Out No longe r eligible based on patient's age to complete this topic Rotavirus Vaccines Aged Out No longer eligible based on patient's age to complete this topic Goals Goal Patient Goal Type Associated Problems Recent Progress Patient-Stated? Author Blood Pressure < 140/90 Blood Pressure 132/88(2024 9:11 AM EST) No Tahir Siu, Tierney Hemoglobin A1c < 7 Result Component 8.4( 9:06 AM EST) No Tahir Siu PharmD Procedures Procedure Name Priority Date/Time Associated Diagnosis Comments POCT GLYCOSYLATED HEMOGLOBIN (HGB A1C) Routine 05/11/2024 9:06 AM EST T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, with long-term current use of insulin ([facility] POCT GLUCOSE Routine 05/11/2024 9:05 AM EST T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, with long-term current use of insulin ([facility]) FUNDUS PHOTOS - OU - BOTH EYES Routine 04/01/2024 9:00 AM EST Choroidal nevus of left eye POCT GLUCOSE Routine 03/03/2024 9:56 AM EST T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, with long-term current use of insulin ([facility]) ALBUMIN, RANDOM URINE W/CREATININE Routine 09/24/2023 11:09 AM EDT T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, with long-term current use of insulin ([facility]) LIPID PANEL WITH REFLEX TO DIRECT LDL Routine 09/24/2023 11:09 AM EDT T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, with long-term current use of insulin ([facility]) PROPHYLAXIS - ADULT Routine 09/20/2021 1 2:00 AM EDT BITEWINGS - 3 RADIOGRAPHIC IMAGES Routine 09/20/2021 12:00 AM EDT INTRAORAL - COMPLETE SERIES OF RADIOGRAPHIC IMAGES Routine 11/25/2019 12:00 AM EDT PERIODIC ORAL EVALUATION - ESTABLISHED PATIENT Routine 11/25/2019 12:00 AM EDT from Last 3 Months or Most Recently Relevant to Health Maintenance Results * (ABNORMAL) POCT glycosylated hemoglobin (Hgb A1c) (05/11/2024 9:06 AM EST) Hemoglobin A1C 8.4(A) 4.0 - 6.0 % QC Media Lot # [id number] Lot# Expiration Date ,426 Blood Capillary blood specimen / Unknown 05/11/2024 9:06 AM EST Marta Washington MD POINT OF CARE TEST ENTER/EDIT OR DERABLES Final Result * POCT glucose manually resulted (05/11/2024 9:05 AM EST) Only the most recent of2 resultswithin the time period is included. Glucose Blood, POC 159 60 - 200 mg/dL QC Media Lot # [id number] Lot# Expiration Date 289 Blood Capillary blood specimen / Unknown 05/11/2024 9:05 AM EST Marta Washington MD POINT OF CARE TEST ENTER/EDIT OR DERABLES Final Result * Fundus Photos - OU - Both Eyes (04/01/2024 9:00 AM EST) Narrative Melany Pereira, OD - 04/14/2024 2:37 PM EST Right Eye Progression has been stable. Disc findings include normal observations. Macula findings include normal observations. Vessel findings include normal observations. Periphery findings include normal observations. Left Eye Progression has been stable. Disc findings include normal observations. Macula findings include (2 drusen just nasal to fovea, no cystoid macular edema (CME)/subretinal fluid (SRF) ). Vessel findings include normal observations. Periphery findings include (1D flat choroidal nevus, few scattered drusen, no lipofuscin at superotemporal rim of ONH). 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 2 drusen just nasal to fovea in the left eye without macular edema. Will monitor in 1 year. us Melany Pereira OD OPHTH PHOTOGRAPHY Final Resul t * Lipid Panel with Reflex to Direct LDL (09/24/2023 11:09 AM EDT) Triglycerides 94 <150 mg/dL [facility] Comment:Desirable Triglyceri de: less than 150 mg/dLBorderline High Triglyceride 150-199 mg/dLHigh Triglyceride: 200-499 mg/dLVery High Triglyceride: greater than or equal to 5OO mg/dL Cholesterol 116 <200 mg/dL [facility] Comment:Desirable Cholestero l: less than 200 mg/dLBorderline High Cholesterol: 200-239 mg/dLHigh Cholesterol: greater than 239 mg/dL LDL Cholesterol Calculated 44 <100 mg/dL [facility] Comment:Desirable LDL: less than 100 mg/dLNear Optimal/Above Optimal LDL: 110- 129 mg/dLBorderline High LDL: 130-159 mg/dLHigh LDL: 160-189 mg/dLVery High LDL: greater than or equal to 190 mg/dL HDL Cholesterol 54 >40 mg/dL [facility] Comment:Desirable HDL: great er than 40 mg/dL Note: This HDL assay may give artificially low results in patients with liver disease. Blood 09/24/2023 11:0 9 AM EDT 09/24/2023 1:07 PM EDT us Marta Washington MD LAB BLOOD ORDERABLES Final Resul t Performing Organization Address [facility] Co de Phone Number [facility] [address] [place] [address] [phone] * (ABNORMAL) Albumin, Random Urine W/Creatinine (09/24/2023 11:09 AM EDT) Creatinine, Urine 47.50 mg/dL [facility] Microalbumin Urine 17.0 mg/L [facility] Microalbum Creatinine Ratio Ur 35.7(H) <30 ug/mg cr [facility] Comment:Albumin/Creatinine R atio Reference Ranges: Normal: < 30 ug/mg creatinine Microalbuminuria: 30 - 300 ug/mg creatinineClinical Albuminuria: > 300 ug/mg creatinine Urine 09/24/2023 11:0 9 AM EDT 09/24/2023 1:06 PM EDT us Marta Washington MD LAB URINE ORDERABLES Final Resul t Performing Organization Address [facility] Co de Phone Number [facility] [address] [place] [phone] from Last 3 Months or Most Recently Relevant to Health Maintenance [place] [address] [place] [address] - [facility] - [facility] Care Teams Dental Sales Representative Relationship Specialty Start Date End Date Sakurai, Marta, MD [address] [place], [place] [phone] PCP - General Family Medicine 07/03/16 Tahir Siu, RebaD [address] [place] [address] Pharmacist Internal Medicine 11/11/22
--- OUTSIDE RECORDS SUMMARY | 2024-05-28 08:21 | XMS_ITS | Encounter Summary ---
Author Organization [employer] Address [address] [place] [address] Care Team Providers Care Manager Planning Name Role Phone Marta Washington MD Primary Care Provider [phone] Tahir Siu PharmD Unavailable [phone] Reason for Visit * Reason Comments Med Refill Encounter Details Date Type Department Care Team (Late st Contact Info) Description 05/16/2024 Refill [facility] [address] [place], [place] [phone] Marta Washington MD [address] [place], [place] [phone] Social History Tobacco Use Types Packs/Day Years [...] the past 12 months, has t he [employer], gas, oil or water [employer] threatened to shut off services in your [...] Description 06/03/2024 9:00 AM EDT Medication Management [facility] [address] [place] [address] Tahir Siu PharmD [address] [place] [phone] 07/29/2024 9:00 AM EDT Office Visit [facility] [address] [place] [phone] Marta Washington MD [address] [place] [address] documented as of this encounter Goals Goal [...] Noted Time PHQ-9 Depression Total Score: 3 05/07/20 24 9:26 AM EDT documented as of this encounter Care Teams Manager Planning Relationship Specialty Start Date End Date Marta Washington MD [address] [place] [address] PCP - General Family Medicine 07/03/16 Tahir Siu, RebaD [address] [place] [address] Pharmacist Internal Medicine 11/11/22 documented as of this encounter
--- OUTSIDE RECORDS SUMMARY | 2024-05-28 08:21 | XMS_ITS | Encounter Summary ---
Author Organization [employer] Address [address] [place] [address] Care Team Providers Care Flower Cutter Name Role Phone Marta Washington MD Primary Care Provider [phone] Tahir Siu PharmD Unavailable [phone] Encounter Details Date Type Department Care Team (Latest Contact Info) Description 11/25/2019 Abstract [facility] CONVERSIONS Dental, Provider, DDS Social History Tobacco [...] Description 06/03/2024 9:00 AM EDT Medication Management [facility] [address] [place] [phone] Tahir Siu, PharmD [address] [place] [address] 07/29/2024 9:00 AM EDT Office Visit [facility] [address] [place] [phone] Marta Washington MD [address] [place] [address] documented as of this encounter Visit Diagnoses Not on filedocumented in this encounter Care Teams Flower Cutter Relationship Specialty Start Date End Date Marta Washington MD [address] [place] [address] PCP - General Family Medicine 07/03/16 Tahir Siu PharmD [address] [place] [address] Pharmacist Internal Medicine 11/11/22 documented as of this encounter
--- OUTSIDE RECORDS SUMMARY | 2024-05-28 08:21 | XMS_ITS | Encounter Summary ---
Author Organization [email or web address] Address [address] [facility] 7t [place] [address] Care Team Providers Care Imaging Analyst Name Role Phone Marta Washington MD Primary Care Provider [phone] Tahir Siu PharmD Unavailable [phone] Encounter Details Date Type Department Care Team (Late st Contact Info) Description 04/15/2022 Orders Only [facility] [address] [place] [phone] Zeenat Torres LPN Social History Tobacco Use Types Packs/Day Years [...] 06/03/2024 9:00 AM EDT Medication Management [facility] [address] [place] [address] [phone] Tahir Siu, PharmD [address] [place] [address] 07/29/2024 9:00 AM EDT Office Visit [facility] [address] [place] [address] [phone] Marta Washington MD [address] [place] [address] documented as of this encounter Visit Diagnoses Not on filedocumented in this encounter Care Teams Imaging Analyst Relationship Specialty Start Date End Date Marta Washington MD [address] [place] [phone] PCP - General Family Medicine 07/03/16 Tahir Siu, Tierney [address] [place] [address] Pharmacist Internal Medicine 11/11/22 documented as of this encounter
--- OUTSIDE RECORDS SUMMARY | 2024-05-28 08:21 | XMS_ITS | Encounter Summary ---
Author Organization [employer] Address [address] [place] [address] Care Team Providers Care Retail Banker Name Role Phone Marta Washington MD Primary Care Provider Tahir Siu PharmD Unavailable [phone] Encounter Details Date Type Department Care Team (Late st Contact Info) Description 05/25/2024 Telephone [facility] [address] [place] [address] Marta Washington MD [address] [place] [address] Social History Tobacco Use Types Packs/Day Years [...] encounter Miscellaneous Notes * Telephone Encounter - Tahir Siu PharmD - 05/25/2024 10:12 AM EST Pharmacy is requesting an updated CDTM referral with a diagnosis of diabetes. This is to replace existing referral that no longer meets visit requirements. Please send at your earliest convenience. Thank you! documented in this encounter Plan of Treatment Upcoming Encounters Date Type Department Care Team (Late st Contact Info) Description 06/03/2024 9:00 AM EDT Medication Management [facility] [address] [place] [address] Tahir Siu, Tierney [address] [place] [address] 07/29/2024 9:00 AM EDT Office Visit [facility] [address] [place] [address] Marta Washington MD [address] [place] [address] documented as of this encounter Goals Goal [...] documented as of this encounter Care Teams Retail Banker Relationship Specialty Start Date End Date Marta Washington MD [address] [place] [address] PCP - General Family Medicine 07/03/16 Tahir Siu PharmD [address] [place] [address] Pharmacist Internal Medicine 11/11/22 documented as of this encounter
--- OUTSIDE RECORDS SUMMARY | 2024-05-28 08:21 | XMS_ITS | Encounter Summary ---
Author Organization [employer] Address [address] [place] [address] Care Team Providers Care Glass Processing Worker Name Role Phone Marta Washington MD Primary Care Provider [phone] Tahir Siu PharmD Unavailable [phone] Reason for Visit * Reason Onset Date Comments Prior Authorization 05/12/2024 DME: CPAP Or esa: [employer] Encounter Details Date Type Department Care Team (Late st Contact Info) Description 05/12/2024 Telephone [facility] [address] [place] [address] Marta Washington MD [address] [place], [place] [phone] Prior Authorization (DME: CPAP Order: [employer]) Social History Tobacco Use Types Packs/Day Years [...] encounter Miscellaneous Notes * Telephone Encounter - Genie Chavez - 05/12/2024 9:57 AM EST Order was sent to [employer] for processing, will follow up with vendor to check status and inform patient of expected delivery. Fax confirmation has been uploaded into Media. * Telephone Encounter - Genie Chavez - 05/12/2024 9:56 AM EST ----- Message from Marta Washington MD sent at 05/11/2024 6:14 PM EST ----- Please check the status of CPAP documented in this encounter Plan of Treatment Upcoming Encounters Date Type Department Care Team ([facility] st Contact Info) Description 06/03/2024 9:00 AM EDT Medication Management [facility] [address] [place] [address] Tahir Siu, PharmD [address] [facility] [place] [address] 07/29/2024 9:00 AM EDT Office Visit [facility] [address] [facility] [place] [address] Marta Washington MD [address] [place] [address] documented as of this encounter Goals Goal [...] documented as of this encounter Care Teams Glass Processing Worker Relationship Specialty Start Date End Date [place] [address] PCP - General Family Medicine 07/03/16 [place] [address] Pharmacist Internal Medicine 11/11/22 documented as of this encounter
--- OUTSIDE RECORDS SUMMARY | 2024-05-28 08:21 | XMS_ITS | Encounter Summary ---
Author Organization [employer] Address [address] [place] [address] Care Team Providers Care Gut Dropper Name Role Phone Marta Washington MD Primary Care Provider [phone] Tahir Siu PharmD Unavailable [phone] Encounter Details Date Type Department Care Team (Late st Contact Info) Description 12/04/2022 Telephone [facility] [address] [place] [address] Marta Washington MD [address] [place] [address] Social History Tobacco Use Types Packs/Day Years Used Date Smoking Tobacco: Never Passive Smoke Exposure: Never Smokeless Tobacco: Never Depression Answer Date Recorded Patient Health Questionnaire-9 Score 0 04/22/2022 Depression Answer Date Recorded Patient Health Questionnaire-2 Score 0 04/22/2022 Sex and Gender Information Value Date Recorded Sex Assigned at Male 01/21/2022 10:20 AM EDT Legal Sex Male 10:20 AM EDT Gender Identity Male 01/21/2022 10:20 AM EDT Sexual Orientation Straight 01/21/2022 10 :20 AM EDT documented as of this encounter Miscellaneous Notes * Telephone Encounter - Nandini Castrejon RN - 12/05/2022 1:47 PM EDT Per Valentina Mendez, Could a Tspot be ordered for this patient? There is a TB documentation form, from [facility], that needs to be completed. Thank you. Tspot order for patient for work. documented in this encounter Plan of Treatment Upcoming Encounters Date Type Department Care Team (Late st Contact Info) Description 06/03/2024 9:00 AM EDT Medication Management [facility] [address] [place] [phone] Tahir Siu PharmD [address] [place] [address] 07/29/2024 9:00 AM EDT Office Visit [facility] [address] [place] [phone] Marta Washington MD [address] [place] [address] Scheduled Orders Name Type Priority Associated Diagnoses Orde r Schedule T-SPOT??.TB Lab Routine Screening for tuberculosis Expected: 12/05/2022 (Approximate), Expires: 12/06/2023 documented as of this encounter Goals Goal Patient Goal Type Associated Problems Recent Progress Patient-Stated? Author Blood Pressure < 140/90 Blood Pressure 132/88(2024 9:11 AM EST) No Tahir Siu PharmD Hemoglobin A1c < 7 Result Component 8.4( 9:06 AM EST) No Tahir Siu PharmD documented as of this encounter Visit Diagnoses Diagnosis Screening for tuberculosis Screening examination for pulmonary tuberculosis documented in this encounter Additional Health Concerns Assessment Noted Time PHQ-9 Depression Total Score: 0 04/22/19 23 10:14 AM EST documented as of this encounter Care Teams Gut Dropper Relationship Specialty Start Date End Date Marta Washington MD [address] [place] [address] [phone] PCP - General Family Medicine 07/03/16 Tahir Siu PharmD [address] [place] [address] [phone] Pharmacist Internal Medicine 11/11/22 documented as of this encounter
--- OUTSIDE RECORDS SUMMARY | 2024-05-28 08:21 | XMS_ITS | Encounter Summary ---
Author Organization [employer] Address [address] [place] [address] Care Team Providers Care Process Description Writer Name Role Phone Marta Washington MD Primary Care Provider [phone] Tahir Siu PharmD Unavailable [phone] Reason for Visit * Reason Comments Med Refill Encounter Details Date Type Department Care Team (Late st Contact Info) Description 09/02/2022 Refill [facility] [address] [place], [place] [phone] Marta Washington MD [address] [place] [phone] Type 2 diabetes mellitus without complication, with long-term current use of insulin ([facility]); History of stroke Social History Tobacco Use Types Packs/Day Years [...] Description 06/03/2024 9:00 AM EDT Medication Management [facility] [address] [address] Tahir Siu, PharmD [address] [facility] [place] [address] 07/29/2024 9:00 AM EDT Office Visit [facility] [address] [place] [phone] Mart[place] [address] documented as of this encounter Visit Diagnoses Diagnosis Type 2 diabetes mellitus without complication, with long-term current use of insulin ([facility]) History of stroke Transient ischemic attack (TIA), and cerebral infarction without residual deficits documented in this encounter Additional Health Concerns Assessment Noted Time PHQ-9 Depression Total Score: 0 04/22/19 23 10:14 AM EST documented as of this encounter Care Teams Process Description Writer Relationship Specialty Start Date End Date Marta Washington MD [address] [place] [phone] PCP - General Family Medicine 07/03/16 Tahir Siu, PharmD [address] [place] [phone] Pharmacist Internal Medicine 11/11/22 documented as of this encounter
--- OUTSIDE RECORDS SUMMARY | 2024-05-28 08:21 | XMS_ITS | Encounter Summary ---
Author Organization [employer] Address [address] [facility] [address] 7[address] [place] [address] Care Team Providers Care Surgical Services Manager Name Role Phone Marta Washington MD Primary Care Provider [phone] Tahir Siu PharmD Unavailable [phone] Reason for Referral * Consultation (Routine) - Closed Specialty Diagnoses / Procedures Referred By Isreal lim Referred To Contact Speech Pathology Diagnoses Choking, initial encounter Marta Washington MD [address] [place] [address] Phone: tel: fax: [facility] [place] [address] Floor [place], [place] Phone: tel: fax: Referral ID Status Reason Start Date Expiration Date V isits Requested Visits Authorized [id number] Closed Specialty Services Required 09/15/2023 09/14/2024 1 1 * Imaging (Routine) - Closed Specialty Diagnoses / Procedures Referred By Isreal lim Referred To Contact Radiology Diagnoses Choking, initial encounter Procedures FL BARIUM SWALLOW MODIFIED Marta Washington MD [address] [place] [address] Phone: tel: fax: [facility] [address] [place] [address] Phone: tel: fax: Referral ID Status Reason Start Date Expiration Date V isits Requested Visits Authorized [id number] Closed Perform Procedure 09/15/2023 09/14/2024 1 1 Encounter Details Date Type Department Care Team (Late st Contact Info) Description 09/15/2023 Orders Only [facility] [address] [place] [address] Marta Washington MD [address] [place] [address] Choking, initial encounter (Primary Dx) Social History Tobacco Use Types Packs/Day Years [...] Description 06/03/2024 9:00 AM EDT Medication Management [facility] [address] [place] [phone] Tahir Siu PharmD [address] [place] [address] 07/29/2024 9:00 AM EDT Office Visit [facility] [address] [place] [phone] Marta Washington MD [address] [place], [place] [phone] Scheduled Referrals Name Type Priority Associated Diagnoses Orde r Schedule Referral to Speech Therapy Outpatient Referral Routine Choking, initial encounter Expected: 09/15/2023 (Approximate), Expires: 09/14/2024 documented as of this encounter Goals Goal Patient Goal Type Associated Problems Recent Progress Patient-Stated? Author Blood Pressure < 140/90 Blood Pressure 132/88(2024 9:11 AM EST) No Tahir Siu PharmD Hemoglobin A1c < 7 Result Component 8.4( 9:06 AM EST) No Tahir Siu PharmD documented as of this encounter Procedures Procedure Name Priority Date/Time Associated Diagnosis Comments FL BARIUM SWALLOW MODIFIED Routine 11/03/2023 3:05 PM EDT Choking, initial encounter documented in this encounter Results * FL BARIUM SWALLOW MODIFIED (11/03/2023 3:05 PM EDT) Anatomical Region Laterality Modality Head, Neck Radiographic Robyn ging 11/03/2023 3:05 PM EDT Narrative 11/05/2023 9:06 AM EDT ? [facility] ?[address] ?[place] [address] ? Fluoroscopy Report ? Signed ? Patient: Whiteanne Bautista,Thad ?MR ?? #: [id number] ? : 1940 ?Acct:[id number] ? Age/Sex: 82 / M ?ADM Date: 11/03/23 ? Loc: HO.XRAY ? Attending Dr: Marta Washington MD ? Ordering Physician: Marta Washington MD ?? Date of Service: 11/03/23 ?? Procedure(s): FL barium swallow modified ?? Accession Number(s): [id number] ? cc: Marta Washington MD ? EXAMINATION: ?? Modified Barium Swallow ? CLINICAL INFORMATION: ?? Dysphagia. ? COMPARISON: ?? None. ? TECHNIQUE: ?? Modified barium swallow was performed under lateral fluoroscopy with ?? patient in standing position. Barium mixed with solids and liquids of ?? different consistencies was administered by the speech pathologist. ?? Examination was recorded in the fluoroscopy suite. ? FINDINGS: ?? Trace laryngeal penetration is seen with thin consistency barium. No ?? subglottic aspiration was observed during this examination. ? FLUOROSCOPY TIME: ?? 1 minute 15 seconds ? Number of Spot Images: N/A ? DOSE AREA PRODUCT: ?? 614.7 uGy-m2 (microgray-meter squared) ? FL/FL barium swallow modified ?? IMPRESSION: ?? Trace laryngeal penetration is seen with thin consistency barium. No ?? subglottic aspiration was observed during this examination. ? Refer to the speech therapy report for further clarification ? This procedure was performed by Arnol Camara PA-C, and supervised by ?? Dr. Kaba ? Dictated By: ?Arnol Camara ? Signed By: ?<Electronically signed by Arnol Camara in OV> ? 11/05/23 0903 ?<Electronically signed by Zach Kaba MD in OV> ? 11/05/23 0906 ? DD/ 1505 ? TD/TT: ? Wood Heel Flap Inserter: ? Procedure Note Dondeeter, Image - 11/05/[address] [address] Fluoroscopy Report Signed Patient: Emery Van #: [id number] : 1Acct:[id number] Age/Sex: 82 / MADM Date: 11/03/23 Loc: HO.XRAY Attending Dr: Marta Washington MD Ordering Physician: Marta Washington MD Date of Service: 11/03/23 Procedure(s): FL barium swallow modified Accession Number(s): [id number] cc: Marta Washington MD EXAMINATION: Modified Barium Swallow CLINICAL INFORMATION: Dysphagia. COMPARISON: None. TECHNIQUE: Modified barium swallow was performed under lateral fluoroscopy with patient in standing position. Barium mixed with solids and liquids of different consistencies was administered by the speech pathologist. Examination was recorded in the fluoroscopy suite. FINDINGS: Trace laryngeal penetration is seen with thin consistency barium. No subglottic aspiration was observed during this examination. FLUOROSCOPY TIME: 1 minute 15 seconds Number of Spot Images: N/A DOSE AREA PRODUCT: 614.7 uGy-m2 (microgray-meter squared) FL/FL barium swallow modified IMPRESSION: Trace laryngeal penetration is seen with thin consistency barium. No subglottic aspiration was observed during this examination. Refer to the speech therapy report for further clarification This procedure was performed by Arnol Camara PA-C, and supervised by Dr. Kaba Dictated By: Arnol Camara Signed By: <Electronically signed by Arnol Camara in OV> 11/05/23 0903 <Electronically signed by Zach Kaba MD in OV> 11/05/23 0906 DD/ 1505 TD/TT: Wood Heel Flap Inserter: Marta Washington MD IMG FLUOROSCOPY PROCEDURES Final Result documented in this encounter Visit Diagnoses Diagnosis Choking, initial encounter- Primary documented in this encounter Additional Health Concerns Assessment Noted Time PHQ-9 Depression Total Score: 3 07/29/19 24 9:26 AM EDT documented as of this encounter Care Teams Surgical Services Manager Relationship Specialty Start Date End Date Marta Washington MD [address] [place] [address] PCP - General Family Medicine 07/03/16 Tahir Siu, Tierney [address] [place] [address] Pharmacist Internal Medicine 11/11/22 documented as of this encounter
[2024-05-28 11:37] LABS: MANUAL DIFF FLAG NO
[2024-05-28 11:46] LABS: Basophils Absolute Auto 0.1 X10*3/uL (0.0-0.2); Basophils Percent Auto 0.7 % (0-2); Eosinophils Absolute Auto 0.6 X10*3/uL (0.0-0.4); Eosinophils Percent Auto 8.2 % (0-4); Hematocrit 39.6 % (42.0-52.0); Imm Gran Abs Auto 0.02 X10*3/uL (0.00-0.03); Imm Gran Pct Auto 0.3 % (0.0-0.4); Lymphocytes Percent Auto 28.4 % (20-40); Mean Corpuscular HGB Conc 32.8 g/dl (31.0-36.0); Mean Corpuscular Hemoglobin 31.2 pg (27.0-33.0); Mean Platelet Volume 9.3 fL (9.4-12.4); Monocytes Absolute Auto 0.9 X10*3/uL (0.1-1.2); Monocytes Percent Auto 12.4 % (2-11); Neutrophils Absolute Auto 3.5 x10*3/uL (2.0-8.3); Platelet Count 231 X10*3/uL (160-400); Red Blood Count 4.17 X10*6/uL (4.60-5.80); Red Cell Distribution Width 13.7 % (11.0-16.0)
[2024-05-28 12:13] LABS: Alanine Aminotransferase 36 U/L (0-40); Albumin Level 3.8 g/dL (3.5-5.0); Alkaline Phosphatase 112 U/L (39-117); Anion Gap 10 (12-20); Aspartate Amino Transferase 36 U/L (5-37); Bilirubin Total 0.4 mg/dL (0.0-1.0); Blood Urea Nitrogen 16 mg/dL (9-16); Calcium 9.1 mg/dL (8.4-10.2); Carbon Dioxide 27 mmol/L (22-29); Chloride 108 mmol/L (96-108); Estimated Glomerular Filt Rate > 60; Glucose Random 84 mg/dL (60-115); Potassium 4.2 mmol/L (3.3-5.1); Sodium 141 mmol/L (135-145); Total Protein 7.6 g/dL (6.5-8.0)
[2024-05-28 12:30] LABS: TSH reflex Free T4 1.88 uIU/mL (0.32-4.0)
== END 2024-05-28 08:09 | disposition home or self-care (01) ==
LOC: HO.HHCL 08:08
PROVIDERS: Visit Provider Family Medicine
DX: C82.90 Follicular lymphoma, unspecified, unspecified site (principal); I10 Essential (primary) hypertension; R19.7 Diarrhea, unspecified
CPT/HCPCS: 36415; 80053; 84443; 85025

== ENCOUNTER 2024-05-30 | Outpatient (REF) | payer OTHER, SELFPAY ==
[2024-05-31 13:45] LABS: Adenovirus F 40/41 Not Detected (Not Detect.); Astrovirus Not Detected (Not Detect.); Campylobacter Not Detected (Not Detect.); Cryptosporidium Not Detected (Not Detect.); Cyclospora cayetanensis Not Detected (Not Detect.); E. coli EAEC Not Detected (Not Detect.); E. coli EPEC Not Detected (Not Detect.); E. coli ETEC Not Detected (Not Detect.); E. coli STEC Not Detected (Not Detect.); Entamoeba histolytica Not Detected (Not Detect.); Giardia lamblia Not Detected (Not Detect.); Norovirus GI/GII Not Detected (Not Detect.); Plesiomonas shigelloides Not Detected (Not Detect.); Rotavirus A Not Detected (Not Detect.); Salmonella Not Detected (Not Detect.); Sapovirus Not Detected (Not Detect.); Shigella sp./EIEC Not Detected (Not Detect.); Vibrio Not Detected (Not Detect.); Vibrio Cholerae Not Detected (Not Detect.); Yersinia enterocolitica Not Detected (Not Detect.)
--- OUTSIDE RECORDS SUMMARY | 2024-05-31 13:50 | XMS_ITS | Encounter Summary ---
Author Organization [employer] Address [address] [address] [facility] [address] 7t [place] [address] Care Team Providers Care Manager Interventional Name Role Phone Marta Washington MD Primary Care Provider [phone] Tahir Siu PharmD Unavailable [phone] Encounter Details Date Type Department Care Team (Late st Contact Info) Description 05/25/2024 Telephone [facility] [address] [place] [address] Marta Washington MD [address] [place] [address] Social History Tobacco Use Types [...] Description 06/03/2024 9:00 AM EDT Medication Management [facility] [address] [place] [address] Tahir Siu, Tierney [address] [place] [address] 07/29/2024 9:00 AM EDT Office Visit [facility] [address] [place] [address] Marta Washington MD [address] [place] [address] documented as of this encounter Goals Goal [...] as of this encounter Care Teams Manager Interventional Relationship Specialty Start Date End Date Marta Washington MD [address] [place] [address] PCP - General Family Medicine 07/03/16 Tahir Siu PharmD [address] [place] [address] Pharmacist Internal Medicine 11/11/22 documented as of this encounter
--- OUTSIDE RECORDS SUMMARY | 2024-05-31 13:50 | XMS_ITS | Encounter Summary ---
Author Organization [employer] Address [address] [facility] [facility] [address] [facility] [address] 7[address] [place] [address] Care Team Providers Care Interactive Media Marketing Director Name Role Phone Marta Washington MD Primary Care Provider [phone] Tahir Siu PharmD Unavailable Reason for Visit * Reason Comments Med Refill Encounter Details Date Type Department Care Team (Late st Contact Info) Description 05/16/2024 Refill [facility] [address] [place], [place] [phone] Marta Washington MD [address] [place], [place] [phone] Social History Tobacco Use Types Packs/Day Years [...] the past 12 months, has t he [employer], gas, oil or water [employer] threatened to shut off services in your [...] Description 06/03/2024 9:00 AM EDT Medication Management [facility] [address] [place] [phone] Tahir Siu PharmD [address] [place] [address] 07/29/2024 9:00 AM EDT Office Visit [facility] [address] [place] [address] Marta Washington MD [address] [place] [address] documented as of this encounter Goals Goal [...] documented as of this encounter Care Teams Interactive Media Marketing Director Relationship Specialty Start Date End Date Marta Washington MD [address] [place] [address] PCP - General Family Medicine 07/03/16 Tahir Siu, RebaD [address] [place] [address] Pharmacist Internal Medicine 11/11/22 documented as of this encounter
--- OUTSIDE RECORDS SUMMARY | 2024-05-31 13:50 | XMS_ITS | Encounter Summary ---
Author Organization [employer] Address [address] [facility] [address] 7t [place] [address] Care Team Providers Care Cis Coordinator Name Role Phone Marta Washington MD Primary Care Provider [phone] Tahir Siu PharmD Unavailable [phone] Reason for Visit * Reason Onset Date Comments chart prep 05/06/2024 Encounter Details Date Type Department Care Team (Late st Contact Info) Description 05/06/2024 Telephone [facility] [address] [place], [place] [phone] [place] chart prep Social History [...] Description 06/03/2024 9:00 AM EDT Medication Management [facility] [address] [place] [phone] Tahir Siu, RebaD [address] [place] [address] 07/29/2024 9:00 AM EDT Office Visit [facility] [address] [place] [address] Marta Washington MD [address] [place] [address] documented as of this encounter Goals Goal [...] documented as of this encounter Care Teams Cis Coordinator Relationship Specialty Start Date End Date Marta Washington MD [address] [place] [address] PCP - General Family Medicine 07/03/16 Tahir Siu PharmD [address] [place] [address] Pharmacist Internal Medicine 11/11/22 documented as of this encounter
--- OUTSIDE RECORDS SUMMARY | 2024-05-31 13:50 | XMS_ITS | Encounter Summary ---
Author Organization [employer] Address [address] [facility] [address] [facility] [address] 7t [place] [address] Care Team Providers Care Software Licensing Specialist Name Role Phone Marta Washington MD Primary Care Provider [phone] Tahir Siu PharmD Unavailable [phone] Encounter Details Date Type Department Care Team (Late st Contact Info) Description 05/26/2024 Orders Only [facility] [address] [place], [place] [phone] Marta Washington MD [address] [place], [place] [phone] Social History Tobacco Use Types Packs/Day Years [...] Description 06/03/2024 9:00 AM EDT Medication Management [facility] [address] [place] [phone] Tahir Siu PharmD [address] [place] [address] 07/29/2024 9:00 AM EDT Office Visit [facility] [address] [place] [phone] Marta Washington MD [address] [place] [address] documented as of this encounter Goals Goal [...] documented as of this encounter Care Teams Software Licensing Specialist Relationship Specialty Start Date End Date Marta Washington MD [address] [place] [address] PCP - General Family Medicine 07/03/16 Tahir Siu PharmD [address] [place] [address] Pharmacist Internal Medicine 11/11/22 documented as of this encounter
--- OUTSIDE RECORDS SUMMARY | 2024-05-31 13:50 | XMS_ITS | Encounter Summary ---
Author Organization [employer] Address [address] [facility] [address] 7[address] [place] [address] Care Team Providers Care Procedural Nurse Name Role Phone Marta Washington MD Primary Care Provider [phone] Tahir Siu PharmD Unavailable [phone] Encounter Details Date Type Department Care Team (Late st Contact Info) Description 05/11/2024 9:15 AM EST Office Visit [facility] [address] [place] [address] Marta Washington MD [address] [place] [address] Primary hypertension (Primary Dx); Bilateral [...] lifestyle modification. Follicular non-Hodgkin's lymphoma (CMS/HCC) Oncologist: [facility], last seen 02/25/22 Dx in 2019 -Pathology [...] medical conditions and safety. - seen by financial legal assistant in Dec 2023 after carotid US and echo, follow up in 1 year with financial legal assistant Hypertension - Primary - Goal BP < [...] Reduce sodium consumption. - Keep appointment with Tahri Siu, PharmD, for CDTM. - Ordered Comprehensive [...] on lifestyle modifications - patient has CGM Mysha[employer].ine DM Maintenance - Last eye exam: Apr [...] USE DIRECTED FOUR TIMES DAILY Continuous Glucose [employer] (FreeStyle Romel 2 [place]) device Scan sensor every 8 hours Continuous [...] ESTAssociated Problem(s): Follicular non-Hodgkin's lymphoma (CMS/HCC) Oncologist: [facility], last seen 02/25/22 Dx in 2019 -Pathology [...] AM ESTAssociated Problem(s): Type 2 diabetes mellitus ([facility]) A1C 8.4% on 05/11/24, 8.5% on 01/26/24 - continue Lantus 30 unit qHS - continue Novolog to 6 units with meals - continue metformin ER 1000 mg bid. - continue Jardiance 10 mg daily for cardiovascular benefit - continue Semaglutide, will increase its dose - consider adding SGLT2i - continue working on lifestyle modifications - patient has CGM [employer] DM Maintenance - Last eye exam: Apr [...] medical conditions and safety. - seen by financial legal assistant in Dec 2023 after carotid US and echo, follow up in 1 year with financial legal assistant documented in this encounter Plan of Treatment Upcoming Encounters Date Type Department Care Team (Late st Contact Info) Description 06/03/2024 9:00 AM EDT Medication Management [facility] [address] [place] [phone] Tahir Siu PharmD [address] [place] [address] 07/29/2024 9:00 AM EDT Office Visit [address] [address] Marta Washington MD [address] [place] [address] Scheduled Orders Name Type Priority Associated Diagnoses Orde r Schedule Stool - Gastrointestinal panel Microbiology Routine Diarrhea, unspecified type Expected: 05/11/2024 (Approximate), Expires: 05/11/2025 documented as of this encounter Goals Goal Patient Goal Type Associated Problems Recent Progress Patient-Stated? Author Blood Pressure < 140/90 Blood Pressure 132/88(2024 9:11 AM EST) No Tahir Siu, PharmRupa Hemoglobin A1c < 7 Result Component 8.4( 9:06 AM EST) No Tahir Siu, Tierney documented as of this encounter Procedures Procedure Name Priority Date/Time Associated Diagnosis Comments TSH W/REFLEX TO FT4 Routine 05/28/2024 8 :12 AM EST Diarrhea, unspecified type CBC WITH AUTO DIFFERENTIAL Routine 05/28/2024 8:12 AM EST Follicular non-Hodgkin's lymphoma ([facility]/HCC) COMPREHENSIVE METABOLIC PANEL Routine 05/28/2024 8:12 AM EST Primary hypertension POCT GLYCOSYLATED HEMOGLOBIN (HGB A1C) Routine 05/11/2024 9:06 AM EST T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, with long-term current use of insulin ([facility]) POCT GLUCOSE Routine 05/11/2024 9:05 AM EST T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, with long-term current use of insulin ([facility]) documented in this encounter Results * TSH with Reflex to Free T4 (05/28/2024 8:12 AM EST) TSH reflex Free T4 1.88 0.32 - 4.0 uIU/mL [facility] Blood 05/28/2024 8:12 AM EST 05/28/2024 11:30 AM EST us Marta Washington MD LAB BLOOD ORDERABLES Final Resul t [facility] [address] [place] [address] [phone] * (ABNORMAL) CBC auto differential (05/28/2024 8:12 AM EST) White Blood Count 7.0 4.8 - 10.8 X10*3/uL [facility] Red Blood Count 4.17(L) 4.60 - 5.80 X10*6/uL [facility] Hemoglobin 13.0(L) 14.0 - 18.0 g/dl [facility] Hematocrit 39.6(L) 42.0 - 52.0 % [facility] Mean Corpuscular Volume 95.0 80.0 - 98.0 fL [facility] Mean Corpuscular Hemoglobin 31.2 27.0 - 33.0 pg [facility] Mean Corpuscular HGB Conc 32.8 31.0 - 36.0 g/dl [facility] Red Cell Distribution Width 13.7 11.0 - 16.0 % [facility] Platelet Count 231 160 - 400 X10*3/uL [facility] Mean Platelet Volume 9.3(L) 9.4 - 12.4 fL [facility] Neutrophils Percent Auto 50.0 45 - 73 % [facility] Imm Gran Pct Auto 0.3 0.0 - 0.4 % [facility] Lymphocytes Percent Auto 28.4 20 - 40 % [facility] Monocytes Percent Auto 12.4(H) 2 - 11 % [facility] Eosinophils Percent Auto 8.2(H) 0 - 4 % [facility] Basophils Percent Auto 0.7 0 - 2 % [facility] NRBC Pct Auto 0.0 0.0 - 0.2 /100WBC [facility] Neutrophils Absolute Auto 3.5 2.0 - 8.3 x10*3/uL [facility] Imm Gran Abs Auto 0.02 0.00 - 0.03 X10*3/uL [facility] Lymphocytes Absolute Auto 2.0 1.2 - 4.9 X10*3/uL [facility] Monocytes Absolute Auto 0.9 0.1 - 1.2 X10*3/uL [facility] Eosinophils Absolute Auto 0.6(H) 0.0 - 0.4 X10*3/uL [facility] Basophils Absolute Auto 0.1 0.0 - 0.2 X10*3/uL [facility] NRBC Abs Auto 0.000 0.0 - 0.012 X10*3/uL [facility] Blood Venous blood specimen / Unknown 05/28/2024 8:12 AM EST 05/28/2024 11:30 AM EST us Marta Washington MD LAB BLOOD ORDERABLES Final Resul t Performing Organization Address City/[facility]/ZIP Co de Phone Number [facility] [address] [place] [phone] * (ABNORMAL) Comprehensive Metabolic Panel (05/28/2024 8:12 AM EST) Sodium 141 135 - 145 mmol/L [facility] Potassium 4.2 3.3 - 5.1 mmol/L [facility] Chloride 108 96 - 108 mmol/L [facility] Carbon Dioxide 27 22 - 29 mmol/L [facility] Anion Gap 10(L) 12 - 20 [facility] Urea Nitrogen (BUN) 16 9 - 16 mg/dL [facility] Creatinine, Serum 1.06 0.5 - 1.4 mg/dL [facility] Estimated Glomerular Filt Rate >60 [facility] Comment:Chronic Kidney Disea se: Estimated GFR < 60 mL/min/[id number] Kidney Disease: Estimated GFR < 15 mL/min/1.73m2 Glucose 84 60 - 115 mg/dL [facility] Calcium 9.1 8.4 - 10.2 mg/dL [facility] Bilirubin, Total 0.4 0.0 - 1.0 mg/dL [facility] Aspartate Amino Transferase 36 5 - 37 U/L [facility] Alanine Aminotransferase 36 0 - 40 U/L [facility] Total Protein 7.6 6.5 - 8.0 g/dL [facility] Albumin Level 3.8 3.5 - 5.0 g/dL [facility] Alkaline Phosphatase 112 39 - 117 U/L [facility] Blood Venous blood specimen / Unknown 05/28/2024 8:12 AM EST 05/28/2024 11:30 AM EST us Marta Washington MD LAB BLOOD ORDERABLES Final Resul t Performing Organization Address City/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
--- OUTSIDE RECORDS SUMMARY | 2024-05-31 13:50 | XMS_ITS | Encounter Summary ---
Author Organization [employer] Address [address] [facility] 7t [place] [address] Care Team Providers Care Rural Mail Carrier Name Role Phone Marta Washington MD Primary Care Provider [phone] Tahir Siu PharmD Unavailable [phone] Reason for Referral * Consultation (Routine) - Authorized Specialty Diagnoses / Procedures Referred By Isreal lim Referred To Contact Pharmacy Diagnoses T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, with long-term current use of insulin (CMS/HCC) Primary hypertension Marta Washington MD [address] [place] [address] Phone: tel: fax: Referral ID Status Reason Start Date Expiration Date Visits Requested Visits Authorized [id number] Authorized Consult and Treat 05/27/2024 05/27/2025 6 6 Encounter Details Date Type Department Care Team (Late st Contact Info) Description 05/27/2024 Orders Only [facility] [address] [place] [address] Marta Washington MD [address] [place] [address] Type 2 diabetes mellitus with [...] Description 06/03/2024 9:00 AM EDT Medication Management [facility] [address] [place] [address] Tahir Siu, PharmD [address] [place] [address] 07/29/2024 9:00 AM EDT Office Visit [facility] [address] [place] [address] Marta Washington MD [address] [place] [address] Scheduled Referrals Name Type Priority Associated Diagnoses Orde r Schedule Referral to Pharmacy CDTM Outpatient Referral Routine T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, with long-term current use of insulin ([facility]) Primary hypertension Ordered: 05/27/2024 documented as of [...] complication, with long-term current use of insulin ([facility])- Primary Primary hypertension Unspecified essential hypertension documented in this encounter Additional Health Concerns Assessment Noted Time PHQ-9 Depression Total Score: 3 07/29/19 24 9:26 AM EDT documented as of this encounter Care Teams Rural Mail Carrier Relationship Specialty Start Date End Date Marta Washington [place] [address] PCP - General Family Medicine 07/03/16 Tahir Siu PharmD [address] [place] [address] Pharmacist Internal Medicine 11/11/22 documented as of this encounter
--- OUTSIDE RECORDS SUMMARY | 2024-05-31 13:51 | XMS_ITS | Encounter Summary ---
Author Organization [employer] Address [address] [place] [address] Care Team Providers Care Astronautical Engineer Name Role Phone Marta Washington MD Primary Care Provider [phone] Tahir Siu PharmD Unavailable [phone] Reason for Visit * Reason Onset Date Comments Prior Authorization 05/12/2024 DME: CPAP Or esa: [employer] Encounter Details Date Type Department Care Team (Late st Contact Info) Description 05/12/2024 Telephone [facility] [address] [place] [address] Marta Washington MD [address] [place], [place] [phone] Prior Authorization (DME: CPAP Order: [employer]) Social [...] 9:57 AM EST Order was sent to [employer] for processing, will follow up with vendor [...] Upcoming Encounters Date Type Department Care Team ([facility] st Contact Info) Description 06/03/2024 9:00 AM EDT Medication Management [facility] [address] [place] [address] Tahir Siu, PharmD [address] [facility] [place] [address] 07/29/2024 9:00 AM EDT Office Visit [facility] [address] [facility] [place] [address] Marta Washington MD [address] [place] [address] documented as of this encounter Goals Goal [...] documented as of this encounter Care Teams Astronautical Engineer Relationship Specialty Start Date End Date [place] [address] PCP - General Family Medicine 07/03/16 [place] [address] Pharmacist Internal Medicine 11/11/22 documented as of this encounter
--- OUTSIDE RECORDS SUMMARY | 2024-05-31 13:51 | XMS_ITS | Encounter Summary ---
Author Organization [employer] Address [address] [place] [address] Care Team Providers Care Scout Sniper Name Role Phone Marta Washington MD Primary Care Provider [phone] Tahir Siu PharmD Unavailable [phone] Reason for Visit * Reason Comments Med Refill Encounter Details Date Type Department Care Team (Late st Contact Info) Description 09/02/2022 Refill [facility] [address] [place], [place] [phone] Marta Washington MD [address] [place] [phone] Type 2 diabetes mellitus without complication, with long-term current use of insulin ([facility]); History of stroke Social History Tobacco Use [...] Description 06/03/2024 9:00 AM EDT Medication Management [facility] [address] [place] [address] Tahir Siu, PharmD [facility] [place] [address] 07/29/2024 9:00 AM EDT Office Visit [facility] [address] [place] [phone] [place] [address] documented as of this encounter Visit Diagnoses Diagnosis Type 2 diabetes mellitus without complication, with long-term current use of insulin ([facility]) History of stroke Transient ischemic attack (TIA), and cerebral infarction without residual deficits documented in this encounter Additional Health Concerns Assessment Noted Time PHQ-9 Depression Total Score: 0 04/22/19 23 10:14 AM EST documented as of this encounter Care Teams Scout Sniper Relationship Specialty Start Date End Date Marta Washington MD [address] [place] [phone] PCP - General Family Medicine 07/03/16 Tahir Siu, PharmD [address] [place] [id number] Pharmacist Internal Medicine 11/11/22 documented as of this encounter
--- OUTSIDE RECORDS SUMMARY | 2024-05-31 13:51 | XMS_ITS | Clinical Summary ---
Author Organization [employer] Address [address] [facility] [address] [place] [address] Care Team Providers Care Consulting Business Developer Name Role Phone Marta Washington MD Primary Care Provider [phone] Tahir Siu PharmD Unavailable [phone] Allergies No known active allergies Medications pantoprazole (ProtoNix) 20 MG EC tablet TAKE 1 TABLET BY MOUTH ONCE DAILY NEEDED 90 tablet 3 024 Active TRUEplus Lancets 33G misc TEST BLOOD SUGAR 5-6 TIMES PER DAY 100 each Active Continuous Glucose Milk Inspector (FreeStyle Romel 2 [place]) device Scan sensor every 8 hours 1 [...] FOUR TIMES DAILY NEEDED 200 each Active NovoLOG FLEXPEN 100 UNIT/ML penIndications:T ype [...] BY MOUTH EVERY MORNING 90 tablet 3 025 Active Ferrous Sulfate (iron) 325 (65 Fe) MG tablet TAKE 1 TABLET BY MOUTH TWICE DAILY IN THE MORNING AND IN THE EVENING WITH ORANGE JUICE 60 tablet 1 025 Active losartan (Cozaar) 100 MG tablet TAKE 1 TABLET BY MOUTH EVERY MORNING 90 tablet 3 024 2024 Discontinued Ferrous Sulfate (iron) 325 (65 Fe) MG tablet TAKE 1 TABLET BY MOUTH TWICE DAILY IN THE MORNING AND IN THE EVENING WITH ORANGE JUICE 60 tablet 1 024 2024 Discontinued Active Problems Problem Noted [...] vascular dementia - will check with his supervisor area for carotid US - due to his risk factors, will consider MRI or MRA. - MR Brain ordered 09/27/23 Assessment & Plan (10/30/2023 10:10 AM EDT): - seemingly age-appropriate memory problem - possible vascular dementia - will check with his supervisor area for carotid US - due to his risk factors, will consider MRI or MRA. Assessment & Plan (09/27/2023 6:15 AM EDT): - seemingly age-appropriate memory problem - possible vascular dementia - will check with his supervisor area for carotid US - due to his [...] history of skin cancer - seen by push bench operator helper, Dr. Bright in Jan 2024 - AK lesions were treated with cryotherapy Assessment & Plan (07/29/2023 6:34 PM EDT): - history of skin cancer - patient has several concerning lesions, will refer back to push bench operator helper History of skin cancer 07/29/2023 Lymphoma in remission 12/15/2022 Assessment & Plan (10/30/2023 10:10 AM EDT): Oncologist: [facility], last seen in 02/27/22 Dx in 2019 [...] & Plan (09/26/2023 1:27 PM EDT): Oncologist: [facility], last seen in 02/27/22 Dx in 2019 [...] & Plan (05/14/2024 5:43 AM EST): Oncologist: [facility], last seen 02/25/22 Dx in 2019 [...] & Plan (01/28/2024 10:03 PM EST): Oncologist: [facility], last seen 02/25/22 Dx in [...] & Plan (10/30/2023 10:10 AM EDT): Oncologist: [facility], last seen 02/25/22 Dx in 2019 [...] & Plan (09/26/2023 1:26 PM EDT): Oncologist: [facility], last seen 02/25/22 Dx in 2019 [...] & Plan (07/29/2023 9:42 AM EDT): Oncologist: [facility], last seen 02/25/22 Dx in 2019 [...] & Plan (09/23/2022 3:01 PM EDT): Oncologist: [facility], last seen 02/25/22 Dx in 2019 [...] & Plan (07/23/2022 10:20 AM EDT): Oncologist: [facility], last seen 02/25/22 Dx in 2019 [...] & Plan (04/27/2022 7:03 AM EST): Oncologist: [facility], last seen 02/25/22 Dx in 2019 [...] AM EST): - [facility] with annual echocardiogram -TTE on [...] (03/04/2024 5:06 PM EST): - Followed by [facility] with annual echocardiogram [...] (01/31/2024 6:19 AM EST): - Followed by [facility] with annual echocardiogram -TTE on 07/24/21 Moderate [...] (10/30/2023 10:06 AM EDT): - Followed by [facility] with annual echocardiogram -TTE on 07/24/21 Moderate LVH. EF 60-65%. Moderate aortic stenosis. Mild aortic regurgitation -TTE on 08/09/22. Normal left ventricular function EF 60-65%. Showed mild aortic stenosis. - Optimize risk factor management Assessment & Plan (07/29/2023 9:40 AM EDT): - Followed by [facility] with annual echocardiogram -TTE on 07/24/21 Moderate LVH. EF 60-65%. Moderate aortic stenosis. Mild aortic regurgitation -TTE on 08/09/22. Normal left ventricular function EF 60-65%. Showed mild aortic stenosis. - Optimize risk factor management Assessment & Plan (03/10/2023 5:07 AM EST): - Followed by [facility] with annual echocardiogram -TTE on 07/24/21 Moderate LVH. EF 60-65%. Moderate aortic stenosis. Mild aortic regurgitation -TTE on 08/09/22. Normal left ventricular function EF 60-65%. Showed mild aortic stenosis. - Optimize risk factor management Assessment & Plan (12/15/2022 6:03 PM EDT): - Followed by [facility] with annual echocardiogram -TTE on 07/24/21 Moderate LVH. EF 60-65%. Moderate aortic stenosis. Mild aortic regurgitation -TTE on 08/09/22. Normal left ventricular function EF 60-65%. Showed mild aortic stenosis. - Optimize risk factor management Assessment & Plan (09/24/2022 12:39 PM EDT): - Followed by [facility] with annual echocardiogram -TTE on 07/24/21 Moderate LVH. EF 60-65%. Moderate aortic stenosis. Mild aortic regurgitation -TTE on 08/09/22. Normal left ventricular function EF 60-65%. Showed mild aortic stenosis. - Optimize risk factor management Assessment & Plan (07/09/2022 3:43 PM EDT): - Followed by [facility] with annual echocardiogram - Last echo on 07/24/21 Moderate LVH. EF 60-65%. Moderate aortic stenosis. Mild aortic regurgitation - Optimize risk factor management Assessment & Plan (04/27/2022 6:53 AM EST): - Followed by [facility] with annual echocardiogram - Last [...] (01/28/2024 9:59 PM EST): - Followed by [facility] provider - Last venous study in in June 2020 showed b/l GSV incomptence - Compression stocking / leg elevation / DASH diet / adequate physical activity Assessment & Plan (07/29/2023 9:40 AM EDT): - Followed by [facility] provider - Last venous study in in June 2020 showed b/l GSV incomptence - Compression stocking / leg elevation / DASH diet / adequate physical activity Assessment & Plan (03/10/2023 5:06 AM EST): - Followed by [facility] provider - Last venous study in in June 2020 showed b/l GSV incomptence - Compression stocking / leg elevation / DASH diet / adequate physical activity Assessment & Plan (12/15/2022 6:06 PM EDT): - Followed by [facility] provider - Last venous study in in June 2020 showed b/l GSV incomptence - Compression stocking / leg elevation / DASH diet / adequate physical activity Assessment & Plan (09/23/2022 3:02 PM EDT): - Followed by [facility] provider - Last venous study in in June 2020 showed b/l GSV incomptence - Compression stocking / leg elevation / DASH diet / adequate physical activity Assessment & Plan (07/09/2022 3:42 PM EDT): - Followed by [facility] provider - Last venous study in in June 2020 showed b/l GSV incomptence - Compression stocking / leg elevation / DASH diet / adequate physical activity Assessment & Plan (04/27/2022 6:42 AM EST): - Followed by [facility] provider - Last venous study in in [...] medical conditions and safety. - seen by supervisor area in Dec 2023 after carotid US and echo, follow up in 1 year with supervisor area Assessment & Plan (03/04/2024 5:05 PM EST): - left side CVA with right hemiparesis - continue risk factor management - most recent carotid US on 12/29/23 showed moderate b/l carotid stenosis, 16- 49%, stable. - ordered a hospital bed at home for treatment of his medical conditions and safety. - seen by supervisor area in Dec 2023 after carotid US and echo, follow up in 1 year with supervisor area Assessment & Plan (01/31/2024 6:15 AM EST): - left side CVA with right hemiparesis - continue risk factor management - most recent carotid US on 12/29/23 showed moderate b/l carotid stenosis, 16- 49%, stable. - ordered a hospital bed at home for treatment of his medical conditions and safety. - seen by supervisor area in Dec 2023 after carotid US and echo, follow up in 1 year with supervisor area Assessment & Plan (09/27/2023 6:12 AM EDT): - left side CVA with right hemiparesis - continue risk factor management - most recent carotid US on 09/13/22 showed moderate b/l carotid stenosis; will ask his supervisor area to update US. - ordered a hospital [...] Encounters Date Type Department Care Team Description 05/29/[address] [facility] [address] [place] [address] Marta Washington MD 05/28/[address] [facility] [address] [place] [address] Marta Washington MD Cognitive impairment (Primary Dx); Lymphoma in remission; Anemia, unspecified type; Mass of left side of neck; Lymphadenopathy of left cervical region 05/27/[address] [facility] [address] [place] [address] Marta Washington MD T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, with long-term current use of insulin ([facility]) (Primary Dx); Primary hypertension 05/26/[address] [facility] [address] [facility] [place] [address] Marta Washington MD 05/25/[address] [facility] [address] [facility] [place] [address] Marta Washington MD 05/16/[address] [facility] [address] [facility] [place] [address] Marta Washington MD 05/12/[address] [facility] [address] [facility] [place] [address] Marta Washington MD Prior Authorization (DME: CPAP Order: [employer]) 05/11/2024 9:15 AM EST Office Visit [facility] [address] [facility] [place] [address] Marta Washington MD Primary hypertension (Primary Dx); [...] 34.9 in adult 05/11/2024 Travel 05/06/[address] [facility] [address] [place] [address] Comfort Slade MA chart prep 04/26/[address] [facility] ADULT DENTAL [address] [place] [address] Hayden Bal DDS 04/21/[address] [facility] [address] [place] [address] Marta Washington MD Type 2 diabetes mellitus with hyperglycemia (CMS/HCC) 04/21/2024 Travel 04/01/2024 9:00 AM EST Office Visit [facility] OPTOMETRY [address] [facility] [address] Randall, Melany, OD Type 2 diabetes mellitus without ophthalmic manifestations (CMS/HCC) (Primary Dx); Choroidal nevus of left eye; Macular drusen, left; Nuclear senile cataract of both eyes; Presbyopia of both eyes 04/01/2024 Travel 03/31/2024 Telephone [facility] [address] [place] [address] Marta Washington MD 03/18/[address] [address] Lillie Whitman MD Type 2 diabetes mellitus with hyperglycemia ([facility]/HCC) 03/17/2024 Refill [facility] [address] [place] [address] Marta Washington MD 03/12/[address] [address] Marta Washington MD T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, with long-term current use of insulin ([facility]) 03/03/2024 9:15 AM EST Office Visit [address] [address] Marta Washington MD Obstructive sleep apnea syndrome (Primary Dx); Primary hypertension; T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, with long-term current use of insulin ([facility]); History of stroke; Memory problem; Dyslipidemia; Hemiparesis of right dominant side as late effect of cerebral infarction (CMS/HCC); Nonrheumatic aortic valve stenosis; Bilateral carotid artery stenosis; Skin lesions; Encounter for immunization 03/03/2024 Travel 03/02/2024 Telephone [facility] [address] [place] [address] Comfort Slade MA chart prep from Last [...] [facility]INE [address] [place] [address] Tahir Siu, PharmD [address] [place] [phone] 07/29/2024 9:00 AM EDT Office Visit [facility] [address] [place] [phone] Marta Washington MD [address] [place] [address] Health Maintenance Due Date Last Done Comments [...] 05/28/2024 8:12 AM EST Follicular non-Hodgkin's lymphoma ([facility]) COMPREHENSIVE METABOLIC PANEL Routine 05/28/2024 8:12 AM EST Primary hypertension POCT GLYCOSYLATED HEMOGLOBIN (HGB A1C) Routine 05/11/2024 9:06 AM EST T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, with long-term current use of insulin ([facility]) POCT GLUCOSE Routine 05/11/2024 9:05 AM EST T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, with long-term current use of insulin ([facility]) FUNDUS PHOTOS - OU - BOTH EYES Routine 04/01/2024 9:00 AM EST Choroidal nevus of left eye POCT GLUCOSE Routine 03/03/2024 9:56 AM EST T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, with long-term current use of insulin ([facility]) ALBUMIN, RANDOM URINE W/CREATININE Routine 09/24/2023 11:09 AM EDT T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, with long-term current use of insulin ([facility]) LIPID PANEL WITH REFLEX TO DIRECT LDL Routine 09/24/2023 11:09 AM EDT T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, with long-term current use of insulin ([facility]/HCC) PROPHYLAXIS - ADULT Routine 09/20/2021 1 2:00 AM EDT BITEWINGS - 3 RADIOGRAPHIC IMAGES Routine 09/20/2021 12:00 AM EDT INTRAORAL - COMPLETE SERIES OF RADIOGRAPHIC IMAGES Routine 11/25/2019 12:00 AM EDT PERIODIC ORAL EVALUATION - ESTABLISHED PATIENT Routine 11/25/2019 12:00 AM EDT from Last 3 Months or Most Recently Relevant to Health Maintenance Results * TSH with Reflex to Free T4 (05/28/2024 8:12 AM EST) TSH reflex Free T4 1.88 0.32 - 4.0 uIU/mL [facility] Blood 05/28/2024 8:12 AM EST 05/28/2024 11:30 AM EST us Marta Washington MD LAB BLOOD ORDERABLES Final Resul t [facility] [address] [place] [phone] * (ABNORMAL) CBC auto differential (05/28/2024 8:12 AM EST) White Blood Count 7.0 4.8 - 10.8 X10*3/uL [facility] Red Blood Count 4.17(L) 4.60 - 5.80 X10*6/uL [facility] Hemoglobin 13.0(L) 14.0 - 18.0 g/dl [facility] Hematocrit 39.6(L) 42.0 - 52.0 % [facility] Mean Corpuscular Volume 95.0 80.0 - 98.0 fL [facility] Mean Corpuscular Hemoglobin 31.2 27.0 - 33.0 pg [facility] Mean Corpuscular HGB Conc 32.8 31.0 - 36.0 g/dl [facility] Red Cell Distribution Width 13.7 11.0 - 16.0 % [facility] Platelet Count 231 160 - 400 X10*3/uL [facility] Mean Platelet Volume 9.3(L) 9.4 - 12.4 fL [facility] Neutrophils Percent Auto 50.0 45 - 73 % [facility] Imm Gran Pct Auto 0.3 0.0 - 0.4 % [facility] Lymphocytes Percent Auto 28.4 20 - 40 % [facility] Monocytes Percent Auto 12.4(H) 2 - 11 % [facility] Eosinophils Percent Auto 8.2(H) 0 - 4 % [facility] Basophils Percent Auto 0.7 0 - 2 % [facility] NRBC Pct Auto 0.0 0.0 - 0.2 /100WBC [facility] Neutrophils Absolute Auto 3.5 2.0 - 8.3 x10*3/uL [facility] Imm Gran Abs Auto 0.02 0.00 - 0.03 X10*3/uL [facility] Lymphocytes Absolute Auto 2.0 1.2 - 4.9 X10*3/uL [facility] Monocytes Absolute Auto 0.9 0.1 - 1.2 X10*3/uL [facility] Eosinophils Absolute Auto 0.6(H) 0.0 - 0.4 X10*3/uL [facility] Basophils Absolute Auto 0.1 0.0 - 0.2 X10*3/uL [facility] NRBC Abs Auto 0.000 0.0 - 0.012 X10*3/uL [facility] Blood Venous blood specimen / Unknown 05/28/2024 8:12 AM EST 05/28/2024 11:30 AM EST us Marta Washington MD LAB BLOOD ORDERABLES Final Resul t [facility] [address] [place], [place] [phone] * (ABNORMAL) Comprehensive Metabolic Panel (05/28/2024 8:12 AM EST) Sodium 141 135 - 145 mmol/L [facility] Potassium 4.2 3.3 - 5.1 mmol/L [facility] Chloride 108 96 - 108 mmol/L [facility] Carbon Dioxide 27 22 - 29 mmol/L [facility] Anion Gap 10(L) 12 - 20 [facility] Urea Nitrogen (BUN) 16 9 - 16 mg/dL [facility] Creatinine, Serum 1.06 0.5 - 1.4 mg/dL [facility] Estimated Glomerular Filt Rate >60 [facility] Comment:Chronic Kidney Disea se: Estimated GFR < 60 mL/min/1.48u0Mksugt Kidney Disease: Estimated GFR < 15 mL/min/1.73m2 Glucose 84 60 - 115 mg/dL [facility] Calcium 9.1 8.4 - 10.2 mg/dL [facility] Bilirubin, Total 0.4 0.0 - 1.0 mg/dL [facility] Aspartate Amino Transferase 36 5 - 37 U/L [facility] Alanine Aminotransferase 36 0 - 40 U/L [facility] Total Protein 7.6 6.5 - 8.0 g/dL [facility] Albumin Level 3.8 3.5 - 5.0 g/dL [facility] Alkaline Phosphatase 112 39 - 117 U/L [facility] Blood Venous blood specimen / Unknown 05/28/2024 8:12 AM EST 05/28/2024 11:30 AM EST us Marta Washington MD LAB BLOOD ORDERABLES Final Resul t [facility] [address] [place], [place] [phone] * (ABNORMAL) POCT glycosylated hemoglobin (Hgb A1c) (05/11/2024 9:06 AM EST) Hemoglobin A1C 8.4(A) 4.0 - 6.0 % QC Media Lot # [id number] Lot# Expiration Date Blood Capillary blood specimen / Unknown 05/11/2024 9:06 AM EST Result [facility] Marta Washington MD POINT OF CARE TEST ENTER/EDIT OR DERABLES Final Result * POCT glucose manually resulted (05/11/2024 9:05 AM EST) Only the most recent of2 resultswithin the time period is included. Glucose Blood, POC 159 60 - 200 mg/dL QC Media Lot # [id number] Lot# Expiration Date 025 Blood Capillary blood specimen / Unknown 05/11/2024 9:[address] [facility] Marta Washington MD POINT OF CARE TEST [...] macular edema. Will monitor in 1 year. Melany Hagenadelfo OD OPHTH PHOTOGRAPHY Final Resul t * Lipid Panel with Reflex to Direct LDL (09/24/2023 11:09 AM EDT) Triglycerides 94 <150 mg/dL [facility] Comment:Desirable Triglyceri de: less than 150 mg/dLBorderline High Triglyceride 150-199 mg/dLHigh Triglyceride: 200-499 mg/dLVery High Triglyceride: greater than or equal to 5OO mg/dL Cholesterol 116 <200 mg/dL [facility] Comment:Desirable Cholestero l: less than 200 mg/dLBorderline High Cholesterol: 200-239 mg/dLHigh Cholesterol: greater than 239 mg/dL LDL Cholesterol Calculated 44 <100 mg/dL [facility] Comment:Desirable LDL: less than 100 mg/dLNear Optimal/Above Optimal LDL: 110- 129 mg/dLBorderline High LDL: 130-159 mg/dLHigh LDL: 160-189 mg/dLVery High LDL: greater than or equal to 190 mg/dL HDL Cholesterol 54 >40 mg/dL [facility] Comment:Desirable HDL: great er than 40 mg/dL Note: This HDL assay may give artificially low results in patients with liver disease. Blood 09/24/2023 11:0 9 AM EDT 09/24/2023 1:07 PM EDT us Marta Washington MD LAB BLOOD ORDERABLES Final Resul t Performing Organization Address City/[facility] Co de Phone Number [facility] [address] [place] [address] [phone] * (ABNORMAL) Albumin, Random Urine W/Creatinine (09/24/2023 11:09 AM EDT) Creatinine, Urine 47.50 mg/dL [facility] Microalbumin Urine 17.0 mg/L [facility] Microalbum Creatinine Ratio Ur 35.7(H) <30 ug/mg cr [facility] Comment:Albumin/Creatinine R atio Reference Ranges: Normal: < 30 ug/mg creatinine Microalbuminuria: 30 - 300 ug/mg creatinineClinical Albuminuria: > 300 ug/mg creatinine Urine 09/24/2023 11:0 9 AM EDT 09/24/2023 1:06 PM EDT us Marta Washington MD LAB URINE ORDERABLES Final Resul t Performing Organization Address City/[facility] Co de Phone Number [id number] [phone] from Last 3 Months or Most Recently Relevant to Health Maintenance Insurance [facility] - [facility] Care Teams Consulting Business Developer Relationship Specialty Start Date End Date Marta Washington MD [address] [place] [address] PCP - General Family Medicine 07/03/16 Tahir Siu, RebaD [address] [place] [address] Pharmacist Internal Medicine 11/11/22
--- OUTSIDE RECORDS SUMMARY | 2024-05-31 13:51 | XMS_ITS | Encounter Summary ---
Author Organization [employer] Address [address] [facility] [address] [place] [address] Care Team Providers Care County Demonstrator Name Role Phone Marta Washington MD Primary Care Provider [phone] Tahir Siu PharmD Unavailable [phone] Encounter Details Date Type Department Care Team (Latest Contact Info) Description 11/25/2019 Abstract [facility] CONVERSIONS Dental, Provider, DDS Social History [...] 06/03/2024 9:00 AM EDT Medication Management [facility] MEDICINE [address] [place] [phone] Tahir Siu, PharmD [address] [place] [address] 07/29/2024 9:00 AM EDT Office Visit [facility] [address] [place] [phone] Marta Washington MD [address] [place] [address] documented as of this encounter Visit Diagnoses Not on filedocumented in this encounter Care Teams County Demonstrator Relationship Specialty Start Date End Date Marta Washington MD [address] [place] [address] PCP - General Family Medicine 07/03/16 Tahir Siu PharmD [address] [place] [address] Pharmacist Internal Medicine 11/11/22 documented as of this encounter
--- OUTSIDE RECORDS SUMMARY | 2024-05-31 13:51 | XMS_ITS | Encounter Summary ---
Author Organization [employer] Address [address] [facility] [address] [place] [address] Care Team Providers Care Hogshead Inspector Name Role Phone Marta Washington MD Primary Care Provider [phone] Tahir Siu PharmD Unavailable [phone] Encounter Details Date Type Department Care Team [...] Description 06/03/2024 9:00 AM EDT Medication Management [facility] [address] [place] [phone] Taihr Siu PharmD [address] [place] [phone] 07/29/2024 9:00 AM EDT Office Visit [facility] [address] [place] [phone] Marta Washington MD [address] [place] [phone] documented as of this encounter Goals Goal [...] documented as of this encounter Care Teams Hogshead Inspector Relationship Specialty Start Date End Date Marta Washington MD [address] [place] [phone] PCP - General Family Medicine 07/03/16 Tahir Siu, RebaD [address] [place] [address] Pharmacist Internal Medicine 11/11/22 documented as of this encounter
--- OUTSIDE RECORDS SUMMARY | 2024-05-31 13:51 | XMS_ITS | Encounter Summary ---
Author Organization [employer] Address [address] [facility] 7 [place] [address] Care Team Providers Care Metal Bed Assembler Name Role Phone Marta Washington MD Primary Care Provider [phone] Tahir Siu PharmD Unavailable Reason for Referral * Consultation (Routine) - Closed Specialty Diagnoses / Procedures Referred By Isreal lim Referred To Contact Memory Care Diagnoses Cognitive impairment Marta Washington MD [address] [place] [address] Phone: tel: fax: [facility] [address] [place] [address] Phone: tel: fax: Referral ID Status Reason Start Date Expiration Date V isits Requested Visits Authorized [id number] Closed Specialty Services Required 05/28/2024 05/28/2025 1 1 Encounter Details Date Type Department Care Team (Late st Contact Info) Description 05/28/2024 Orders Only [facility] [address] [place] [address] Marta Washington MD [address] [place] [address] Cognitive impairment (Primary Dx); Lymphoma in remission; Anemia, unspecified type; Mass of left side of neck; Lymphadenopathy of left cervical region Social History Tobacco Use Types Packs/Day Years [...] Description 06/03/2024 9:00 AM EDT Medication Management [facility] [address] [place] [address] Tahir Siu, PharmD [address] [place] [address] 07/29/2024 9:00 AM EDT Office Visit [facility] [address] [place] [address] Marta Washington MD [address] [place] [address] Scheduled Referrals Name Type Priority Associated Diagnoses Order Schedule Referral to Geriatrics Outpatient Referral Routine Cognitive impairment Expected: 05/28/2024 (Approximate), Expires: 05/28/2025 documented as of this encounter Goals Goal Patient Goal Type Associated Problems Recent Progress Patient-Stated? Author Blood Pressure < 140/90 Blood Pressure 132/88(2024 9:11 AM EST) No Tahir Siu PharmD Hemoglobin A1c < 7 Result Component 8.4( 9:06 AM EST) No Tahir Siu PharmD documented as of this encounter Visit Diagnoses Diagnosis Cognitive impairment- Primary Unspecified persistent mental disorders due to conditions classified elsewhere Lymphoma in remission Other malignant lymphomas, unspecified site, extranodal and solid organ sites Anemia, unspecified type Mass of left side of neck Lymphadenopathy of left cervical region documented in this encounter Additional Health Concerns Assessment Noted Time PHQ-9 Depression Total Score: 3 07/29/19 24 9:26 AM EDT documented as of this encounter Care Teams Metal Bed Assembler Relationship Specialty Start Date End Date Marta Washington MD [address] [place] [phone] PCP - General Family Medicine 07/03/16 Tahir Siu, PharmD [address] [place] [address] Pharmacist Internal Medicine 11/11/22 documented as of this encounter
--- OUTSIDE RECORDS SUMMARY | 2024-05-31 13:51 | XMS_ITS | Encounter Summary ---
Author Organization [employer] Address [address] [facility] [address] 7t [place] [address] Care Team Providers Care Principal Technical Writer Name Role Phone Marta Washington MD Primary Care Provider [phone] Tahir Siu PharmD Unavailable [phone] Encounter Details Date Type Department Care Team (Late st Contact Info) Description 12/04/2022 Telephone [facility] [address] [place] [address] Marta Washington MD [address] [place], [place] [phone] Social History Tobacco Use Types Packs/Day Years [...] There is a TB documentation form, from [facility], that needs to be completed. Thank you. [employer] order for patient for work. documented in this encounter Plan of Treatment Upcoming Encounters Date Type Department Care Team (Late st Contact Info) Description 06/03/2024 9:00 AM EDT Medication Management [facility] [address] [place] [phone] Tahir Siu PharmD [address] [place] [phone] 07/29/2024 9:00 AM EDT Office Visit [facility] [address] [place] [address] Marta Washington MD [address] [place] [phone] Scheduled Orders Name Type Priority Associated Diagnoses [...] documented as of this encounter Care Teams Principal Technical Writer Relationship Specialty Start Date End Date Marta Washington MD [address] [place] [address] [phone] PCP - General Family Medicine 07/03/16 Tahir Siu PharmD [address] [place] [address] [phone] Pharmacist Internal Medicine 11/11/22 documented as of this encounter
--- OUTSIDE RECORDS SUMMARY | 2024-05-31 13:51 | XMS_ITS | Encounter Summary ---
Author Organization [employer] Address [address] [facility] 7t [place] [address] Care Team Providers Care Cell Technician Name Role Phone Marta Washington MD Primary Care Provider [phone] Tahir Siu PharmD Unavailable [phone] Encounter Details Date Type Department Care Team (Latest Contact Info) Description 09/20/2021 Abstract [facility] CONVERSIONS Dental, Provider, DDS Social History [...] 9:00 AM EDT Medication Management [facility] MED[facility]INE [address] [place] [address] Tahir Siu, PharmD [address] [place] [address] 07/29/2024 9:00 AM EDT Office Visit [facility] [address] [place] [address] Marta Washington MD [address] [place] [address] documented as of this encounter Visit Diagnoses Not on filedocumented in this encounter Care Teams Cell Technician Relationship Specialty Start Date End Date Marta Washington MD [address] [place] [address] PCP - General Family Medicine 07/03/16 Tahir Siu PharmD [address] [place] [address] Pharmacist Internal Medicine 11/11/22 documented as of this encounter
--- OUTSIDE RECORDS SUMMARY | 2024-05-31 13:51 | XMS_ITS | Encounter Summary ---
Author Organization [employer] Address [address] [facility] [address] 7[address] [place] [address] Care Team Providers Care Type Copy Examiner Name Role Phone Marta Washington MD Primary Care Provider [phone] Tahir Siu PharmD Unavailable [phone] Reason for Referral * Consultation (Routine) - Closed Specialty Diagnoses / Procedures Referred By Isreal lim Referred To Contact Speech Pathology Diagnoses Choking, initial encounter Marta Washington MD [address] [place] [address] Phone: tel: fax: [facility] [address] 1[address] Floor [place], [place] Phone: tel: fax: Referral ID Status Reason Start Date Expiration Date V isits Requested Visits Authorized [id number] Closed Specialty Services Required 09/15/2023 09/14/2024 1 1 * Imaging (Routine) - Closed Specialty Diagnoses / Procedures Referred By Isreal lim Referred To Contact Radiology Diagnoses Choking, initial encounter Procedures FL BARIUM SWALLOW MODIFIED Marta Washington MD [address] [place] [address] Phone: tel: fax: [facility] [address] [place] [address] Phone: tel: fax: Referral ID Status Reason Start Date Expiration Date V isits Requested Visits Authorized [id number] Closed Perform Procedure 09/15/2023 09/14/2024 1 1 Encounter Details Date Type Department Care Team (Late st Contact Info) Description 09/15/2023 Orders Only [facility]INE [address] [place] [address] Marta Washington MD [address] [place] [address] Choking, initial encounter (Primary Dx) Social History [...] Description 06/03/2024 9:00 AM EDT Medication Management [facility]INE [address] [place] [address] Tahir Siu PharmD [address] [place] [address] 07/29/2024 9:00 AM EDT Office Visit [facility] [address] [place] [address] Marta Washington MD [address] [place], [place] [phone] Scheduled Referrals Name Type Priority Associated Diagnoses [...] EDT Narrative 11/05/2023 9:06 AM EDT ? [facility] ?[address] ?[place] [address] ? Fluoroscopy Report ? Signed ? Patient: Whiteanne Bautista,Thad ?MR ?? #: [id number] ? : 1940 ?Acct:[id number] ? Age/Sex: 82 / M ?ADM Date: 11/03/23 ? Loc: HO.XRAY ? Attending Dr: Marta Washington MD ? Ordering Physician: Marta Washington MD ?? Date of Service: 11/03/23 ?? Procedure(s): FL barium swallow modified ?? Accession Number(s): [id number] ? cc: Marta Washington MD ? EXAMINATION: [...] 0906 ? DD/ 1505 ? TD/TT: ? Laborer Chemical Processing: ? Procedure Note [place], Image - 11/05/[address] [address] Fluoroscopy Report Signed Patient: Emery Van #: [id number] : 1Acct:[id number] Age/Sex: 82 / MADM Date: 11/03/23 Loc: HO.XRAY Attending Dr: Marta Washington MD Ordering Physician: Marta Washington MD Date of Service: 11/03/23 Procedure(s): FL barium swallow modified Accession Number(s): [id number] cc: Marta Washington MD EXAMINATION: Modified Barium [...] in OV> 11/05/23 0906 DD/ 1505 TD/TT: Laborer Chemical Processing: Marta Washington MD IMG FLUOROSCOPY PROCEDURES Final Result documented in this encounter Visit Diagnoses Diagnosis Choking, initial encounter- Primary documented in this encounter Additional Health Concerns Assessment Noted Time PHQ-9 Depression Total Score: 3 07/29/19 24 9:26 AM EDT documented as of this encounter Care Teams Type Copy Examiner Relationship Specialty Start Date End Date Marta Washington MD [address] [place] [address] PCP - General Family Medicine 07/03/16 Tahir Siu, Tierney [address] [place] [address] Pharmacist Internal Medicine 11/11/22 documented as of this encounter
--- OUTSIDE RECORDS SUMMARY | 2024-05-31 13:51 | XMS_ITS | Encounter Summary ---
Author Organization [employer] Address [address] [facility] 7t [place] [address] Care Team Providers Care Composition Stone Applicator Name Role Phone Marta Washington MD Primary Care Provider [phone] Tahir Siu PharmD Unavailable [phone] Encounter Details Date Type Department Care Team (Late st Contact Info) Description 04/15/2022 Orders Only [facility] MED[facility]INE [address] [place] [address] Zeenat Torres LPN Social History Tobacco Use [...] Description 06/03/2024 9:00 AM EDT Medication Management [facility] [address] [place] [address] [phone] Tahir Siu, PharmD [address] [place] [address] 07/29/2024 9:00 AM EDT Office Visit [facility] [address] [place] [address] [phone] Marta Washington MD [address] [place] [address] documented as of this encounter Visit Diagnoses Not on filedocumented in this encounter Care Teams Composition Stone Applicator Relationship Specialty Start Date End Date Marta Washington MD [address] [place] [address] PCP - General Family Medicine 07/03/16 Tahir Siu, Tierney [address] [place] [address] Pharmacist Internal Medicine 11/11/22 documented as of this encounter
--- OUTSIDE RECORDS SUMMARY | 2024-05-31 13:51 | XMS_ITS | Encounter Summary ---
Author Organization [employer] Address [address] [facility] [address] 7t [place] [address] Care Team Providers Care Heel Brusher Name Role Phone Marta Washington MD Primary Care Provider [phone] Tahir Siu PharmD Unavailable [phone] Reason for Visit * Reason Comments Med Refill Encounter Details Date Type Department Care Team (Late st Contact Info) Description 05/29/2024 Refill [facility] [address] [place], [place] [phone] Marta Washington MD [address] [place], [place] [phone] Social History Tobacco Use Types Packs/Day Years [...] the past 12 months, has t he [employer], gas, oil or water [email or web address] threatened to shut off services in your [...] Description 06/03/2024 9:00 AM EDT Medication Management [facility] [address] [place] [address] Tahir Siu PharmD [address] [place] [address] 07/29/2024 9:00 AM EDT Office Visit [facility] [address] [place] [address] Marta Washington MD [address] [place] [address] documented as of this encounter Goals Goal [...] documented as of this encounter Care Teams Heel Brusher Relationship Specialty Start Date End Date Marta Washington MD [address] [place] [address] PCP - General Family Medicine 07/03/16 Tahir Siu, RebaD [address] [place] [address] Pharmacist Internal Medicine 11/11/22 documented as of this encounter
== END 2024-05-30 00:01 | disposition home or self-care (01) ==
LOC: HO.HHCLNP
PROVIDERS: Visit Provider Family Medicine
DX: R19.7 Diarrhea, unspecified (principal)
CPT/HCPCS: 87507

== ENCOUNTER 2024-08-11 07:57 | Outpatient (REF) | payer OTHER, SELFPAY ==
--- OUTSIDE RECORDS SUMMARY | 2024-08-11 08:41 | XMS_ITS | Encounter Summary ---
Author Organization [employer] Address [address] [facility] 7t [place] [address] Care Team Providers Care Piggyback Clerk Name Role Phone Marta Washington MD Primary Care Provider [phone] Tahir Siu PharmD Unavailable [phone] Reason for Referral * Consultation (Routine) - Pending Review Specialty Diagnoses / Procedures Referred By Isreal lim Referred To Contact Pharmacy Diagnoses T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, with long-term current use of insulin (CMS/HCC) Primary hypertension Marta Washington MD [address] [place] [address] Phone: tel: fax: Referral ID Status Reason Start Date Expiration Date Visits Requested Visits Authorized [id number] Pending Review Consult and Treat 05/27/2024 05/27/2025 6 6 Encounter Details Date Type Department Care Team (Late st Contact Info) Description 05/27/2024 Orders Only [facility] [address] [place], [place] [phone] Marta Washington MD [address] [place], [place] [phone] Type 2 diabetes mellitus with other circulatory [...] Care Team (Late st Contact Info) Description 08/12/2024 1:30 PM EDT Clinical Support [facility] [address] [place] [phone] 09/30/2024 9:00 AM EDT Medication Management [facility] [address] [place] [address] Tahir Siu, PharmD [address] [place] [address] Scheduled Referrals Name Type Priority Associated Diagnoses Orde r Schedule Referral to Pharmacy CDTM Outpatient Referral Routine T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, with long-term current use of insulin ([facility]) Primary hypertension Ordered: 05/27/2024 documented as of this encounter Goals Goal Patient Goal Type Associated Problems Recent Progress Patient-Stated? Author Blood Pressure < 140/90 Blood Pressure 139/74(2024 8:53 AM EDT) No Tahir Siu, Tierney Hemoglobin A1c < 7 Result Component 8.7( 9:14 AM EDT) No Tahir Siu PharmD documented as of this encounter Visit Diagnoses Diagnosis T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, with long-term current use of insulin ([facility])- Primary Primary hypertension Unspecified essential hypertension documented in this encounter Additional Health Concerns Assessment Noted Time PHQ-9 Depression Total Score: 3 07/29/19 24 9:26 AM EDT documented as of this encounter Care Teams Piggyback Clerk Relationship Specialty Start Date End Date aMrta Washington MD [address] [place] [address] PCP - General Family Medicine 07/03/16 Tahir Siu, RebaD [address] [place] [address] Pharmacist Internal Medicine 11/11/22 documented as of this encounter
--- OUTSIDE RECORDS SUMMARY | 2024-08-11 08:43 | XMS_ITS | Clinical Summary ---
Author Organization [employer] Address [address] [facility] [address] [place] [address] Care Team Providers Care Associate Partner Name Role Phone Marta Washington MD Primary Care Provider [phone] Tahir Siu PharmD Unavailable [phone] Allergies No known active allergies Medications Continuous Glucose Glazier Helper (ZadegoStyle Romel 2 Crawford) device Scan sensor every 8 hours 1 each 024 Active Jardiance 10 MG TAKE 1 TABLET BY MOUTH EVERY MORNING 90 tablet 3 024 Active docusate sodium (Colace) 100 MG capsuleIndicatio ns:Chronic idiopathic constipation TAKE 1 CAPSULE BY MOUTH TWICE DAILY IN THE MORNING AND AT BEDTIME 180 capsule 3 024 Active semaglutide (Ozempic) 2 MG/1.5ML solution pen-injector Inject 1 mg under the skin 1 (one) time per week. 2 each 024 Active Alcohol Swabs (Alcohol Prep) 70 % padsIndications: T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, with long-term current use of insulin (CMS/HCC) USE FOUR TIMES DAILY NEEDED 200 each 11 024 Active NovoLOG FLEXPEN 100 UNIT/ML penIndications:T ype 2 diabetes mellitus with hyperglycemia (CMS/HCC) INJECT 6 UNITS SUBCUTANEOUSLY WITH MEALS 15 mL 1 024 Active B-D UF III MINI PEN NEEDLES 31G X 5 MM miscIndications: Type 2 diabetes mellitus with hyperglycemia (CMS/HCC) USE DIRECTED FOUR TIMES DAILY 100 each 025 Active losartan (Cozaar) 100 MG tablet TAKE 1 TABLET BY MOUTH EVERY MORNING 90 tablet 3 025 Active pantoprazole (ProtoNix) 20 MG EC tablet TAKE 1 TABLET BY MOUTH ONCE DAILY NEEDED 90 tablet 3 025 Active atorvastatin (Lipitor) 40 MG tabletIndication s:Type 2 diabetes mellitus without complication, with long-term current use of insulin ([facility]) TAKE 1 TABLET BY MOUTH AT BEDTIME 90 tablet 1 Active aspirin (Aspirin Low Dose) 81 MG EC tabletIndication s:History of stroke TAKE 1 TABLET BY MOUTH EVERY MORNING 90 tablet 1 025 Active metFORMIN (Glucophage) 1000 MG tabletIndication s:Type 2 diabetes mellitus without complication, with long-term current use of insulin ([facility]) TAKE 1 TABLET BY MOUTH TWICE DAILY IN THE MORNING AND IN THE EVENING WITH FOOD 180 tablet 1 Active insulin glargine (Lantus SoloStar) 100 UNIT/ML penIndications:T 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, with long-term current use of insulin ([facility]) Inject 24 units subcutaneously every evening 15 mL Active empagliflozin-me tFORMIN (Synjardy) 5-1000 MG Take 1 tablet by mouth with breakfast and with evening meal. 60 tablet 025 2025 Active Ferrous Sulfate (iron) 325 (65 Fe) MG tablet TAKE 1 TABLET BY MOUTH TWICE DAILY IN THE MORNING AND IN THE EVENING WITH ORANGE JUICE 60 tablet Active TRUEplus Lancets 33G miscIndications: T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, with long-term current use of insulin ([facility]) TEST BLOOD SUGAR 5-6 TIMES PER DAY 200 each 6 Active glucose blood (FreeStyle Precision Vincent Test) test stripIndications :T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, with long-term current use of insulin ([facility]) USE DIRECTED TO TEST BLOOD SUGAR 3 TO 6 TIMES DAILY 100 strip Active Continuous Glucose Sensor (FreeStyle Romel 2 Sensor) miscIndications: T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, with long-term current use of insulin ([facility]) Apply 1 sensor every 14 days 2 each Active TRUEplus Lancets 33G [facility] TEST BLOOD SUGAR 5-6 TIMES PER DAY 100 each 024 2024 Discontinued Continuous Glucose Sensor (FreeStyle Romel 2 Sensor) [facility] Apply 1 sensor every 14 days 2 each 024 2024 Discontinued(R eorder (will not trigger notification to Pharmacy)) glucose blood (FreeStyle Precision Vincent Test) test strip Use to test blood sugar 3-6 times daily 100 each 12 024 2024 Discontinued aspirin (Aspirin Low Dose) 81 MG EC tabletIndication s:History of stroke TAKE 1 TABLET BY MOUTH EVERY MORNING 90 tablet 1 024 2024 Discontinued atorvastatin (Lipitor) 40 MG tabletIndication s:Type 2 diabetes mellitus without complication, with long-term current use of insulin ([facility]) TAKE 1 TABLET BY MOUTH AT BEDTIME 90 tablet 1 024 2024 Discontinued metFORMIN (Glucophage) 1000 MG tabletIndication s:Type 2 diabetes mellitus without complication, with long-term current use of insulin ([facility]) TAKE 1 TABLET BY MOUTH TWICE DAILY IN THE MORNING AND IN THE EVENING WITH FOOD 180 tablet 1 024 2024 Discontinued insulin glargine (Lantus SoloStar) 100 UNIT/ML penIndications:T 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, with long-term current use of insulin ([facility]) Inject 24 units subcutaneously every evening 15 mL 025 2024 Discontinued(R eorder (will not trigger notification to Pharmacy)) Ferrous Sulfate (iron) 325 (65 Fe) MG tablet TAKE 1 TABLET BY MOUTH TWICE DAILY IN THE MORNING AND IN THE EVENING WITH ORANGE JUICE 60 tablet 1 025 2024 Discontinued empagliflozin-me tFORMIN (Synjardy) 5-1000 MG Take 1 tablet by mouth with breakfast and with evening meal. 60 tablet 025 2024 Discontinued(R eorder (will not trigger notification to Pharmacy)) Active Problems Problem Noted Date Diagnosed Date Health care maintenance 07/29/2024 Assessment & Plan (07/29/2024 5:13 AM EDT): Prevention - discussed about safety - reviewed mental and behavioral health Cancer screening - colon: average risk. Last colonoscopy in 2019 showed tubular adenoma. 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 Chronic lacunar infarct of the left gan radiata. - continue being socially interactive. - schedule for evaluation with [facility] Assessment & Plan (03/06/2024 6:25 AM EST): - seemingly age-appropriate memory problem - possible vascular dementia - MRI on 02/07/24 did not show significant abnormality or new abnormality. Chronic lacunar infarct of the left gan radiata. - continue being socially interactive. Assessment & Plan (01/28/2024 10:02 PM EST): - seemingly age-appropriate memory problem - possible vascular dementia - will check with his vacuum furnace operator for carotid US - due to his risk factors, will consider MRI or MRA. - MR Brain ordered 09/27/23 Assessment & Plan (10/30/2023 10:10 AM EDT): - seemingly age-appropriate memory problem - possible vascular dementia - will check with his vacuum furnace operator for carotid US - due to his risk factors, will consider MRI or MRA. Assessment & Plan (09/27/2023 6:15 AM EDT): - seemingly age-appropriate memory problem - possible vascular dementia - will check with his vacuum furnace operator for carotid US - due to his [...] study Skin lesions 07/29/2023 Assessment & Plan (07/30/2024 6:48 AM EDT): - history of skin cancer - seen by chemistry intern, Dr. Bright in Jan 2024 - AK lesions were treated with cryotherapy Assessment & Plan (03/06/2024 6:23 AM EST): - history of skin cancer - seen by chemistry intern, Dr. 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 - Six polyps removed - tubular adenoma - Recommended to repeat in 2 years, which is overdue. He was referred to GI in 2021, but he states he does not need a colonoscopy anymore due to his age. Assessment & Plan (04/27/2022 7:07 AM EST): - Colonoscopy on 09/10/18. - Six polyps removed - tubular adenoma - Recommended to repeat in 2 years, which is overdue. He was referred to GI in 2021, but he states he does not need a colonoscopy anymore due to his age. Follicular non-Hodgkin's lymphoma 04/21/2022 Assessment & Plan (07/30/2024 6:49 AM EDT): Oncologist: [facility], last seen 02/25/22 Dx in 2019 -Pathology [...] of clinical and radiological remission. - Ordered lab in June 2024. If abnormal, will consider CT scan. Assessment & Plan (05/14/2024 5:43 AM EST): Oncologist: MAGGIE, last seen 02/25/22 Dx [...] & Plan (10/30/2023 10:10 AM EDT): Oncologist: MAGGIE, last seen 02/25/22 [...] & Plan (09/26/2023 1:26 PM EDT): Oncologist: [facility], last seen 02/25/22 Dx in 2019 -Pathology [...] & Plan (07/29/2023 9:42 AM EDT): Oncologist: [facility], last seen 02/25/22 Dx in 2019 -Pathology [...] & Plan (09/23/2022 3:01 PM EDT): Oncologist: [facility], last seen 02/25/22 Dx in 2019 -Pathology [...] & Plan (07/23/2022 10:20 AM EDT): Oncologist: [facility], last seen 02/25/22 Dx in 2019 -Pathology [...] & Plan (04/27/2022 7:03 AM EST): Oncologist: [facility], last seen 02/25/22 Dx in 2019 -Pathology [...] carotid artery stenosis 04/21/2022 Assessment & Plan (07/30/2024 6:37 AM EDT): - Hx left side CVA - 12/29/23 Carotid US showed bilateral carotid stenosis, moderate 16-49%. - Continue working on secondary prevention / risk factor management Assessment & Plan (05/11/2024 8:42 AM EST): [...] Aortic valve stenosis 10/31/2016 Assessment & Plan (07/30/2024 6:39 AM EDT): - [facility] -TTE on [...] area 1.1 cm2, mod thickening of MV. - Echo on 07/06/24 Normal LV systolic function. EF 70%. Moderate to severe aortic stenosis and trace regurgitation. Mild mitral stenosis. Assessment & Plan (05/11/2024 8:42 AM EST): - Followed by [facility] with annual echocardiogram -TTE on 07/24/21 [...] (03/04/2024 5:06 PM EST): - Followed by [facility] with annual echocardiogram -TTE on 07/24/21 [...] (01/31/2024 6:19 AM EST): - Followed by [facility] with annual echocardiogram -TTE on 07/24/21 [...] (10/30/2023 10:06 AM EDT): - Followed by [facility] with annual echocardiogram -TTE on 07/24/21 Moderate LVH. EF 60-65%. Moderate aortic stenosis. Mild aortic regurgitation -TTE on 08/09/22. Normal left ventricular function EF 60-65%. Showed mild aortic stenosis. - Optimize risk factor management Assessment & Plan (07/29/2023 9:40 AM EDT): - Followed by [facility] with annual echocardiogram -TTE on 07/24/21 Moderate LVH. EF 60-65%. Moderate aortic stenosis. Mild aortic regurgitation -TTE on 08/09/22. Normal left ventricular function EF 60-65%. Showed mild aortic stenosis. - Optimize risk factor management Assessment & Plan (03/10/2023 5:07 AM EST): - Followed by [facility] with annual echocardiogram -TTE on 07/24/21 Moderate LVH. EF 60-65%. Moderate aortic stenosis. Mild aortic regurgitation -TTE on 08/09/22. Normal left ventricular function EF 60-65%. Showed mild aortic stenosis. - Optimize risk factor management Assessment & Plan (12/15/2022 6:03 PM EDT): - Followed by [facility] with annual echocardiogram -TTE on 07/24/21 Moderate LVH. EF 60-65%. Moderate aortic stenosis. Mild aortic regurgitation -TTE on 08/09/22. Normal left ventricular function EF 60-65%. Showed mild aortic stenosis. - Optimize risk factor management Assessment & Plan (09/24/2022 12:39 PM EDT): - Followed by [facility] with annual echocardiogram -TTE on 07/24/21 Moderate LVH. EF 60-65%. Moderate aortic stenosis. Mild aortic regurgitation -TTE on 08/09/22. Normal left ventricular function EF 60-65%. Showed mild aortic stenosis. - Optimize risk factor management Assessment & Plan (07/09/2022 3:43 PM EDT): - Followed [facility] with annual echocardiogram - Last echo on 07/24/21 Moderate LVH. EF 60-65%. Moderate aortic stenosis. Mild aortic regurgitation - Optimize risk factor management Assessment & Plan (04/27/2022 6:53 AM EST): - Followed by [facility] with annual echocardiogram - Last echo on 07/24/21 Moderate LVH. EF 60-65%. Moderate aortic stenosis. Mild aortic regurgitation - Optimize risk factor management Obstructive sleep apnea syndrome 10/31/2016 Assessment & Plan (07/29/2024 10:24 AM EDT): - CPAP titration study completed 02/10/17: CPAP pressure at 14 cm. -12/03/23 Sleep study, Mild sleep apnea. May be treated with conservative management. In presence of significant comorbidities, may need to be started on CPAP therapy, which can be started at autoPAP mode and pressure setting 6-20 cm followed by close monitoring for compliance and benefits. - finally received a new CPAP, which is not fitting appropriately. Patient is planning to take it back to the supplier. Assessment & Plan (03/06/2024 6:28 AM EST): [...] Peripheral venous insufficiency 10/31/2016 Assessment & Plan (07/30/2024 6:35 AM EDT): - Followed by [facility] provider - Last venous study in in June 2020 showed b/l GSV incomptence - Compression stocking / leg elevation / DASH diet / adequate physical activity Assessment & Plan (01/28/2024 9:59 PM EST): - Followed by [facility] provider - Last venous study in in June 2020 showed b/l GSV incomptence - Compression stocking / leg elevation / DASH diet / adequate physical activity Assessment & Plan (07/29/2023 9:40 AM EDT): - Followed by [facility] provider - Last venous study in in June 2020 showed b/l GSV incomptence - Compression stocking / leg elevation / DASH diet / adequate physical activity Assessment & Plan (03/10/2023 5:06 AM EST): - Followed by [facility] provider - Last venous study in in June 2020 showed b/l GSV incomptence - Compression stocking / leg elevation / DASH diet / adequate physical activity Assessment & Plan (12/15/2022 6:06 PM EDT): - Followed by [facility] provider - Last venous study in in June 2020 showed b/l GSV incomptence - Compression stocking / leg elevation / DASH diet / adequate physical activity Assessment & Plan (09/23/2022 3:02 PM EDT): - Followed by [facility] provider - Last venous study in in June 2020 showed b/l GSV incomptence - Compression stocking / leg elevation / DASH diet / adequate physical activity Assessment & Plan (07/09/2022 3:42 PM EDT): - Followed by [facility] provider - Last venous study in in June 2020 showed b/l GSV incomptence - Compression stocking / leg elevation / DASH diet / adequate physical activity Assessment & Plan (04/27/2022 6:42 AM EST): - Followed by [facility] provider - Last venous study in in June 2020 showed b/l GSV incomptence - Compression stocking / leg elevation / DASH diet / adequate physical activity Type 2 diabetes mellitus 03/08/2015 Assessment & Plan (07/30/2024 6:46 AM EDT): A1C 8.2% on 07/29/24, 8.4% on 05/11/24, 8.5% on 01/26/24 - discrepancy from CGM-suggested A1C 7.2% (GMI). Possibly related to his hematological problem (known anemia and hx lymphoma) - comanaged by our pharmacist - continue Lantus 24 unit qHS - continue Novolog to 6 units with meals - continue metformin ER 1000 mg bid. - continue Jardiance 10 mg daily for cardiovascular benefit - will use a combo medication of metformin - empagliflozin as suggested by pharmacist - continue Semaglutide 1 mg weekly - consider adding SGLT2i - continue working on lifestyle modifications - patient has [employer] DM Maintenance - Last eye exam: Apr 11, 2024. No diabetic retinopathy. Pt has a Hx of benign neoplasm of R eye. - Last foot exam: 10/30/23, high-risk - Last microalbumin test: 09/24/23, UACR 35.7 - Last lipid profile: 09/24/23 - Last dental exam: ?scheduled for 2022 Assessment & Plan (05/14/2024 5:46 AM EST): [...] of cerebral infarction 11/30/2014 Assessment & Plan (07/30/2024 6:35 AM EDT): - left side CVA with right hemiparesis - continue risk factor management - most recent carotid US on 12/29/23 showed moderate b/l carotid stenosis, 16- 49%, stable. - ordered a hospital bed at home for treatment of his medical conditions and safety. - next carotid US in Dec 2024 Assessment & Plan (05/11/2024 8:41 AM EST): - left side CVA with right hemiparesis - continue risk factor management - most recent carotid US on 12/29/23 showed moderate b/l carotid stenosis, 16- 49%, stable. - ordered a hospital bed at home for treatment of his medical conditions and safety. - seen by vacuum furnace operator in Dec 2023 after carotid US and echo, follow up in 1 year with vacuum furnace operator Assessment & Plan (03/04/2024 5:05 PM EST): - left side CVA with right hemiparesis - continue risk factor management - most recent carotid US on 12/29/23 showed moderate b/l carotid stenosis, 16- 49%, stable. - ordered a hospital bed at home for treatment of his medical conditions and safety. - seen by vacuum furnace operator in Dec 2023 after carotid US and echo, follow up in 1 year with vacuum furnace operator Assessment & Plan (01/31/2024 6:15 AM EST): - left side CVA with right hemiparesis - continue risk factor management - most recent carotid US on 12/29/23 showed moderate b/l carotid stenosis, 16- 49%, stable. - ordered a hospital bed at home for treatment of his medical conditions and safety. - seen by vacuum furnace operator in Dec 2023 after carotid US and echo, follow up in 1 year with vacuum furnace operator Assessment & Plan (09/27/2023 6:12 AM EDT): - left side CVA with right hemiparesis - continue risk factor management - most recent carotid US on 09/13/22 showed moderate b/l carotid stenosis; will ask his vacuum furnace operator to update US. - ordered a hospital [...] and safety. Dyslipidemia 01/09/2012 Assessment & Plan (07/30/2024 6:49 AM EDT): - Last lipid profile: 09/24/23 - According to ACC/AHA guideline, high-intensity statin therapy is recommended. - Continue atorvastatin 40 mg qhs. Consider increasing to 80 mg qhs - Emphasized the importance of lifestyle modification. Assessment & Plan (05/14/2024 5:42 AM EST): [...] Gastroesophageal reflux disease 10/28/2011 Assessment & Plan (07/30/2024 6:40 AM EDT): - continue pantoprazole 20 mg daily - elevated the head of bed Assessment & Plan (10/30/2023 10:07 AM EDT): - continue pantoprazole 20 mg daily - elevated the head of bed Assessment & Plan (09/27/2023 6:18 AM EDT): - continue pantoprazole 20 mg daily - elevated the head of bed Assessment & Plan (04/27/2022 6:54 AM EST): - continue pantoprazole 20 mg daily - elevated the head of bed Hypertension 10/28/2011 Assessment & Plan (07/30/2024 6:36 AM EDT): - Goal BP < 140/90 [...] for CDTM. - Ordered Comprehensive Metabolic Panel in June 2024, reminded about lab Assessment & Plan (05/11/2024 12:48 PM EST): [...] appointment with Tahir Siu, PharmD, for CDTM. Assessment & Plan (07/29/2023 [...] Encounters Date Type Department Care Team Description 08/05/2024 Orders Only [facility] [address] [place] [address] Marta Washington MD T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, with long-term current use of insulin (CMS/HCC) (Primary Dx) 08/05/2024 Refill [facility] [address] [place] [address] Marta Washington MD T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, with long-term current use of insulin (CMS/HCC) 08/04/2024 Refill [facility] [address] [place] [address] Marta Washington MD T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, with long-term current use of insulin (CMS/HCC) 07/31/2024 Refill [facility] [address] [place] [address] Marta Washington MD 07/29/2024 9:00 AM EDT Office Visit [facility] [address] [place] [address] Marta Washington MD T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, with long-term current use of insulin (CMS/HCC) (Primary Dx); Primary hypertension; Obstructive sleep apnea syndrome; Nonrheumatic aortic valve stenosis; Bilateral carotid artery stenosis; Peripheral venous insufficiency; Follicular non-Hodgkin's lymphoma (CMS/HCC); Dyslipidemia; Health care maintenance; Tubular adenoma of colon; Gastroesophageal reflux disease, unspecified whether esophagitis present; Class 1 obesity due to excess calories with serious comorbidity and body mass index (BMI) of 34.0 to 34.9 in adult; Hemiparesis of right dominant side as late effect of cerebral infarction ([facility]); Chest crackles; Memory problem; Nuclear senile cataract of both eyes; Skin lesions; Lymphoma in remission ([facility]) 07/29/2024 Travel 07/28/2024 Telephone [facility] [address] [facility] [place] [address] Marta Washington MD Chart Prep 07/28/2024 Refill [facility] [address] [facility] [place] [id number] Marta Washington MD Type 2 diabetes mellitus without complication, with long-term current use of insulin ([facility]); History of stroke 06/23/2024 Orders Only [facility] [address] [facility] [place] [address] Marta Washington MD Lymphoma in remission ([facility]) (Primary Dx); Anemia, unspecified type; Dyslipidemia; T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, with long-term current use of insulin ([facility]); Primary hypertension 06/09/2024 Refill [facility] [address] [facility] [place] [address] Marta Washington MD 06/03/2024 Travel 06/01/2024 Telephone [facility] [address] [facility] [place] [address] Marta Washington MD Results 05/29/2024 Refill [facility] [address] [facility] [place] [address] Marta Washington MD 05/28/2024 Orders Only [facility] [address] [facility] [place] [address] Marta Washington MD Cognitive impairment (Primary Dx); Lymphoma in remission; Anemia, unspecified type; Mass of left side of neck; Lymphadenopathy of left cervical region 05/27/2024 Orders Only [facility] [address] [facility] [place] [address] Marta Washington MD T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, with long-term current use of insulin ([facility]) (Primary Dx); Primary hypertension 05/26/2024 Orders Only [facility] [address] [facility] [place] [address] Marta Washington MD 05/25/2024 Telephone [facility] [facility] [address], [place] [phone] Marta Washington MD 05/16/2024 Refill [facility] [address], [place] [phone] Marta Washington MD from Last 3 Months Immunizations Immunization Administration Dates Next Due Hep B, adult [...] Date Recorded Patient Health Questionnaire-9 Score 0 07/29/2024 Patient Health Questionnaire-9 Score 0 07/29/2024 Last PHQ-9: Questionnaire Data Not on file 0 07/29/2024 Housing Stability Answer Date Recorded What is your housing situation today? I have rekha aguero 07/29/[address] you li ve. Do you have problems with any of the following? None of the above 07/29/2024 Food Insecurity Answer Date Recorded Within the past 12 months, y ou worried that your food would run out before you got money to buy more: Never True 07/29/2024 Within the past 12 months,th e food you bought just didn't last and you didn't have enough money to get more: Never True 10/2024 Transportation Answer Date Recorded In the past 12 months, has l ack of transportation kept you from medical appts, meetings, work or from getting things needed for daily living? No 07/29/2024 Utilities Answer Date Recorded In the past 12 months, has t he electric, gas, oil or water company threatened to shut off services in your home? No 07/29/2024 Depression Answer Date Recorded Patient Health Questionnaire-2 Score 0 07/29/2024 Internet Access Answer Date Recorded Internet Access Q1 No 07/29/2024 Internet Access Q2 I do not want or need it 10/2024 Sex and Gender Information Value Date Recorded Sex Assigned at Male 01/21/2022 10:20 AM EDT Legal Sex Male 10:20 AM EDT Gender Identity Male 01/21/2022 10:20 AM EDT Sexual Orientation Straight 01/21/2022 10 :20 AM EDT Last Filed Vital Signs Vital Sign Reading Time Taken Comments Blood Pressure 139/74 07/29/2024 8:53 AM EDT Pulse 65 07/29/2024 8:53 AM EDT Temperature 36.1 ??C (96.9 ??F) 07/29/2024 8:53 AM ED T Respiratory Rate 20 07/29/2024 8:53 AM EDT Oxygen Saturation 98% 07/29/2024 8:53 AM EDT Inhaled Oxygen Concentration - - Weight 105 kg (230 lb 6.4 oz) 07/29/2024 8:53 AM EDT Height 174.6 cm (5' 8.75 ) 07/29/2024 8:53 AM ED T Body Mass Index 34.27 07/29/2024 8:53 AM EDT Plan of Treatment Upcoming Encounters Date Type Department Care Team (Late st Contact Info) Description 08/12/2024 1:30 PM EDT Clinical Support [facility] [address] [place] [address] 09/30/2024 9:00 AM EDT Medication Management [facility] [address] [place] [address] Tahir Siu, PharmD [address] [place] [address] Health Maintenance Due Date Last Done Comments Dental Oral Exam 05/25/2020 11/25/2019, 01/2017, 08/21/2016 Dental Prophylaxis 03/23/2022 09/20/2021 Dental X-Ray: Bitewings 09/21/2022 09/21/19 22, 11/25/2019, 08/21/2016 Dental X-Ray: Full Mouth 11/25/2022 020, 09/12/2017, 08/21/2016 COVID-19 Vaccine (5 - Mixed Product risk season) 2024 03/03/2024, 02/05/2021, 06/01/2020, Additional history exists Diabetes: Urine Protein Screening 09/23/2024 09/24/2023, 01/21/2023, 01/02/2022, Additional history exists Lipid Panel 09/23/2024 09/24/2023, 12/24, 01/02/2022, Additional history exists Alcohol/Substance Use Screening 10/29/2024 10/30/2023 Diabetes: Foot Exam 10/29/2024 10/30/2023, 10/30/2023, 10/30/2023, Additional history exists Diabetes: Hemoglobin A1C 10/29/2024 025, 05/11/2024, 01/26/2024, Additional history exists Depression Screening 07/29/2025 07/29/2024, 07/30/19 25 SDOH Screening 07/29/2025 07/29/2024 Tobacco Screening 07/29/2025 07/29/2024 Eye Exam 04/01/2026 04/01/2024, 11/2024, 04/01/2024, Additional [...] patient's age to complete this topic Meningococcal B Vaccine Aged Out No l onger eligible based on patient's age to complete [...] 9:14 AM EDT) No Tahir Siu PharmD Procedures Procedure Name Priority Date/Time Associated Diagnosis Comments POCT GLUCOSE Routine 07/29/2024 9:15 AM EDT T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, with long-term current use of insulin ([facility]) POCT GLYCATED HEMOGLOBIN, TOTAL Routine 07/29/2024 9:14 AM EDT T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, with long-term current use of insulin ([facility]) GASTROINTESTINAL PANEL Routine 5:00 PM EDT Diarrhea, unspecified type TSH W/REFLEX TO FT4 Routine 05/28/2024 8 :12 AM EST Diarrhea, unspecified type CBC WITH AUTO DIFFERENTIAL Routine 05/28/2024 8:12 AM EST Follicular non-Hodgkin's lymphoma (CMS/HCC) COMPREHENSIVE METABOLIC PANEL Routine 05/28/2024 8:12 AM EST Primary hypertension ALBUMIN, RANDOM URINE W/CREATININE Routine 09/24/2023 11:09 AM EDT T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, with long-term current use of insulin (CMS/HCC) LIPID PANEL WITH REFLEX TO DIRECT LDL Routine 09/24/2023 11:09 AM EDT T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, with long-term current use of insulin (CMS/HCC) PROPHYLAXIS - ADULT Routine 09/20/2021 1 2:00 AM EDT BITEWINGS - 3 RADIOGRAPHIC IMAGES Routine 09/20/2021 12:00 AM EDT INTRAORAL - COMPLETE SERIES OF RADIOGRAPHIC IMAGES Routine 11/25/2019 12:00 AM EDT PERIODIC ORAL EVALUATION - ESTABLISHED PATIENT Routine 11/25/2019 12:00 AM EDT from Last 3 Months or Most Recently Relevant to Health Maintenance Results * POCT Glucose (07/29/2024 9:15 AM EDT) Pathologist [facility] Glucose Blood, POC 169 60 - 200 mg/dL QC Media Lot # [id number] Lot# Expiration Date ,832 Blood Capillary blood specimen / Unknown 07/29/2024 9:15 AM EDT Marta Washington MD POINT OF CARE TEST ENTER/EDIT OR DERABLES Final Result * (ABNORMAL) POCT HGB A1C (07/29/2024 9:14 AM EDT) Hemoglobin A1C 8.7(A) 4.0 - 6.0 % QC Media Lot # [id number] Lot# Expiration Date [id number] Blood 07/29/2024 9:14 AM EDT Marta Washington MD POINT OF CARE TEST ENTER/EDIT OR DERABLES Final Result * Stool - Gastrointestinal panel (05/30/2024 5:00 PM EDT) Campylobacter Not Detected Not Detect. [facility] Plesiomonas shigelloides Not Detected Not Detect. [facility] Salmonella Not Detected Not Detect. [facility] Vibrio Not Detected Not Detect. [facility] Vibrio cholerae Not Detected Not Detect. [facility] YERSINIA ENTEROCOLITICA Not Detected Not Detect. [facility] Enteroaggregative E. coli (EAEC) Not Detected Not Detect. [facility] Enteropathogenic E. coli (EPEC) Not Detected Not Detect. [facility] Enterotoxigenic E. coli (ETEC) lt/st Not Detected Not Detect. [facility] Shiga-like toxin-producing E. coli (STEC) stx1/stx2 Not Detected Not Detect. [facility] E coli O157 Not applicable Not Detect. [facility] Comment:E. coli containing t he O157 antigen are a subset ofShiga-like toxin- producing E. coli (STEC). Shigella/Enteroinvasive E. coli (EIEC) Not Detected Not Detect. [facility] Cryptosporidium Not Detected Not Detect. [facility] Cyclospora cayetanensis Not Detected Not Detect. [facility] Entamoeba histolytica Not Detected Not Detect. [facility] Giardia lamblia Not Detected Not Detect. [facility] Adenovirus F 40/41 Not Detected Not Detect. [facility] Astrovirus Not Detected Not Detect. [facility] Norovirus GI/GII Not Detected Not Detect. [facility] Rotavirus A Not Detected Not Detect. [facility] Sapovirus Not Detected Not Detect. [facility] Comment: All results must be correlated with clinical findings.Negative results do not exclude the possibility ofgastrointestinal infection and should not be used as thesole basis for diagnosis, treatment, or other managementdecisions. Virus, bacteria, and parasite nucleic acid maypersist in vivo independently of organism viability.Additionally, some organisms may be carriedasymptomatically.Detection of organism targets does not imply that thecorresponding organisms are infectious or are the causativeagents for clinical symptoms. There is a risk of falsenegative values due to the presence of sequence variants inthe gene targets of the assay, amplification inhibitors inspecimens, or inadequate numbers of organisms foramplification.The identification of several diarrheagenic E. colipathotypes has historically relied upon phenotypiccharacteristics. This panel targets genetic determinantscharacteristic of most pathogenic strains, but may notdetect all strains having phenotypic characteristics of apathotype.The performance of this test has not been established formonitoring treatment of infection with any of the panelorganisms.This assay is performed by Multiplexed PCR, utilizing [employer] Array. Stool Rectal contents / Unknown 05/30/2024 5:00 PM EDT 05/31/2024 12:15 PM EDT Marta Washington MD LAB MICROBIOLOGY - GENERAL ORDER MARCELO Final Result Performing Organization Address City/[facility]/ZIP Co de Phone Number [facility] [address] [place] [phone] * TSH with Reflex to Free T4 (05/28/2024 8:12 AM EST) TSH reflex Free T4 1.88 0.32 - 4.0 uIU/mL [facility] Blood 05/28/2024 8:12 AM EST 05/28/2024 11:30 AM EST Marta Washington MD LAB BLOOD ORDERABLES Final Resul t Performing Organization Address City/[facility]/ZIP Co de Phone Number [facility] [address] [place] [phone] * (ABNORMAL) CBC auto differential (05/28/2024 8:12 AM EST) White Blood Count 7.0 4.8 - 10.8 X10*3/uL [facility] Red Blood Count 4.17(L) 4.60 - 5.80 X10*6/uL [facility] Hemoglobin 13.0(L) 14.0 - 18.0 g/dl [facility] Hematocrit 39.6(L) 42.0 - 52.0 % [facility] Mean Corpuscular Volume 95.0 80.0 - 98.0 fL [facility] Mean Corpuscular Hemoglobin 31.2 27.0 - 33.0 pg [facility] Mean Corpuscular HGB Conc 32.8 31.0 - 36.0 g/dl [facility] Red Cell Distribution Width 13.7 11.0 - 16.0 % [facility] Platelet Count 231 160 - 400 X10*3/uL [facility] Mean Platelet Volume 9.3(L) 9.4 - 12.4 fL [facility] Neutrophils Percent Auto 50.0 45 - 73 % [facility] Imm Gran Pct Auto 0.3 0.0 - 0.4 % [facility] Lymphocytes Percent Auto 28.4 20 - 40 % [facility] Monocytes Percent Auto 12.4(H) 2 - 11 % [facility] Eosinophils Percent Auto 8.2(H) 0 - 4 % [facility] Basophils Percent Auto 0.7 0 - 2 % [facility] NRBC Pct Auto 0.0 0.0 - 0.2 /100WBC [facility] Neutrophils Absolute Auto 3.5 2.0 - 8.3 x10*3/uL [facility] Imm Gran Abs Auto 0.02 0.00 - 0.03 X10*3/uL [facility] Lymphocytes Absolute Auto 2.0 1.2 - 4.9 X10*3/uL [facility] Monocytes Absolute Auto 0.9 0.1 - 1.2 X10*3/uL [facility] Eosinophils Absolute Auto 0.6(H) 0.0 - 0.4 X10*3/uL [facility] Basophils Absolute Auto 0.1 0.0 - 0.2 X10*3/uL [facility] NRBC Abs Auto 0.000 0.0 - 0.012 X10*3/uL [facility] Blood Venous blood specimen / Unknown 05/28/2024 8:12 AM EST 05/28/2024 11:30 AM EST us Marta Washington MD LAB BLOOD ORDERABLES Final Resul t [facility] [address] [place] [phone] [phone] * (ABNORMAL) Comprehensive Metabolic Panel (05/28/2024 8:12 AM EST) Sodium 141 135 - 145 mmol/L [facility] Potassium 4.2 3.3 - 5.1 mmol/L [facility] Chloride 108 96 - 108 mmol/L [facility] Carbon Dioxide 27 22 - 29 mmol/L [facility] Anion Gap 10(L) 12 - 20 [facility] Urea Nitrogen (BUN) 16 9 - 16 mg/dL [facility] Creatinine, Serum 1.06 0.5 - 1.4 mg/dL [facility] Estimated Glomerular Filt Rate >60 [facility] Comment:Chronic Kidney Disea se: Estimated GFR < 60 mL/min/1.18h6Vgxddh Kidney Disease: Estimated GFR < 15 mL/min/1.73m2 Glucose 84 60 - 115 mg/dL [facility] Calcium 9.1 8.4 - 10.2 mg/dL [facility] Bilirubin, Total 0.4 0.0 - 1.0 mg/dL [facility] Aspartate Amino Transferase 36 5 - 37 U/L [facility] Alanine Aminotransferase 36 0 - 40 U/L [facility] Total Protein 7.6 6.5 - 8.0 g/dL [facility] Albumin Level 3.8 3.5 - 5.0 g/dL [facility] Alkaline Phosphatase 112 39 - 117 U/L [facility] Blood Venous blood specimen / Unknown 05/28/2024 8:12 AM EST 05/28/2024 11:30 AM EST Marta Washington MD LAB BLOOD ORDERABLES Final Resul t Performing Organization Address City/[facility]/ZIP Co de Phone Number [facility] [address] [place] [phone] * Lipid Panel with Reflex to Direct LDL (09/24/2023 11:09 AM EDT) Triglycerides 94 <150 mg/dL [facility] Comment:Desirable Triglyceri de: less than 150 mg/dLBorderline High Triglyceride 150-199 mg/dLHigh Triglyceride: 200-499 mg/dLVery High Triglyceride: greater than or equal to 5OO mg/dL Cholesterol 116 <200 mg/dL [facility] Comment:Desirable Cholestero l: less than 200 mg/dLBorderline High Cholesterol: 200-239 mg/dLHigh Cholesterol: greater than 239 mg/dL LDL Cholesterol Calculated 44 <100 mg/dL [facility] Comment:Desirable LDL: less than 100 mg/dLNear Optimal/Above Optimal LDL: 110- 129 mg/dLBorderline High LDL: 130-159 mg/dLHigh LDL: 160-189 mg/dLVery High LDL: greater than or equal to 190 mg/dL HDL Cholesterol 54 >40 mg/dL [facility] Comment:Desirable HDL: great er than 40 mg/dL Note: This HDL assay may give artificially low results in patients with liver disease. Blood 09/24/2023 11:0 9 AM EDT 09/24/2023 1:07 PM EDT us Marta Washington MD LAB BLOOD ORDERABLES Final Resul t Performing Organization Address City/[facility]/ZIP Co de Phone Number [facility] [address] [place] [phone] * (ABNORMAL) Albumin, Random Urine W/Creatinine (09/24/2023 11:09 AM EDT) Creatinine, Urine 47.50 mg/dL [facility] Microalbumin Urine 17.0 mg/L [facility] Microalbum Creatinine Ratio Ur 35.7(H) <30 ug/mg cr [facility] Comment:Albumin/Creatinine R atio Reference Ranges: Normal: < 30 ug/mg creatinine Microalbuminuria: 30 - 300 ug/mg creatinineClinical Albuminuria: > 300 ug/mg creatinine Urine 09/24/2023 11:0 9 AM EDT 09/24/2023 1:06 PM EDT us Marta Washington MD LAB URINE ORDERABLES Final Resul t [facility] [address] [place] [phone] from Last 3 Months or Most Recently Relevant to Health Maintenance Insurance [facility] [employer] (HMO D-SNP) [facility] STANDARD Care Teams Associate Partner Relationship Specialty Start Date End Date Marta Washington MD [address] [place] [address] PCP - General Family Medicine 07/03/16 Tahir Siu, RebaD [address] [place] [address] Pharmacist Internal Medicine 11/11/22
--- OUTSIDE RECORDS SUMMARY | 2024-08-11 08:46 | XMS_ITS | Encounter Summary ---
Author Organization [employer] Address [address] [facility] [address] [place] [address] Care Team Providers Care Outpatient Therapist Name Role Phone Marta Washington MD Primary Care Provider [phone] Tahir Siu PharmD Unavailable [phone] Reason for Visit * Reason Comments Med Refill Encounter Details Date Type Department Care Team (Late Contact Info) Description 09/02/2022 Refill [facility] [address] [place] [address] Marta Washington MD [address] [place] [phone] Type 2 diabetes mellitus without complication, with long-term current use of insulin ([facility]); History of stroke Social History Tobacco Use [...] Encounters Date Type Department Care Team (Late Contact Info) Description 08/12/2024 1:30 PM EDT Clinical Support [address] [phone] 09/30/2024 9:00 AM EDT Medication Management [address] [address] Tahir Siu, PharmD [address] [place] [phone] documented as of this encounter Visit Diagnoses Diagnosis Type 2 diabetes mellitus without complication, with long-term current use of insulin ([facility]) History of stroke Transient ischemic attack (TIA), and cerebral infarction without residual deficits documented in this encounter Additional Health Concerns Assessment Noted Time PHQ-9 Depression Total Score: 0 04/22/19 23 10:14 AM EST documented as of this encounter Care Teams Outpatient Therapist Relationship Specialty Start Date End Date Marta Washington MD [address] [place] [phone] PCP - General Family Medicine 07/03/16 Tahir Siu, PharmD [address] [place] [phone] Pharmacist Internal Medicine 11/11/22 documented as of this encounter
--- OUTSIDE RECORDS SUMMARY | 2024-08-11 08:49 | XMS_ITS | Encounter Summary ---
Author Organization [employer] Address [address] [facility] 7[address] [place] [address] Care Team Providers Care Two Way Radio Installer Name Role Phone Marta Washington MD Primary Care Provider [phone] Tahir Siu PharmD Unavailable [phone] Encounter Details Date Type Department Care Team (Latest Contact Info) Description 11/25/2019 Abstract [facility] CONVERSIONS Dental, Provider, DDS Social History [...] Description 08/12/2024 1:30 PM EDT Clinical Support [facility] [address] [place] [phone] 09/30/2024 9:00 AM EDT Medication Management [facility] [address] [place] [phone] Tahir Siu, PharmD [address] [place] [address] documented as of this encounter Visit Diagnoses Not on filedocumented in this encounter Care Teams Two Way Radio Installer Relationship Specialty Start Date End Date Marta Washington MD [address] [place] [address] PCP - General Family Medicine 07/03/16 Tahir Siu, RebaD [address] [place] [phone] Pharmacist Internal Medicine 11/11/22 documented as of this encounter
[2024-08-11 11:10] LABS: MANUAL DIFF FLAG NO
[2024-08-11 11:17] LABS: Basophils Percent Auto 0.6 % (0-2); Eosinophils Absolute Auto 0.5 X10*3/uL (0.0-0.4); Eosinophils Percent Auto 6.7 % (0-4); Hematocrit 39.2 % (42.0-52.0); Hemoglobin 12.9 g/dl (14.0-18.0); Imm Gran Abs Auto 0.03 X10*3/uL (0.00-0.03); Imm Gran Pct Auto 0.4 % (0.0-0.4); Immature Retic Fraction 13.1 % (2.3-13.4); Lymphocytes Absolute Auto 1.7 X10*3/uL (1.2-4.9); Lymphocytes Percent Auto 23.3 % (20-40); Mean Corpuscular HGB Conc 32.9 g/dl (31.0-36.0); Mean Corpuscular Hemoglobin 31.2 pg (27.0-33.0); Mean Corpuscular Volume 94.7 fL (80.0-98.0); Mean Platelet Volume 9.9 fL (9.4-12.4); Monocytes Absolute Auto 0.7 X10*3/uL (0.1-1.2); Monocytes Percent Auto 10.3 % (2-11); Neutrophils Absolute Auto 4.2 x10*3/uL (2.0-8.3); Neutrophils Percent Auto 58.7 % (45-73); Platelet Count 191 X10*3/uL (160-400); Red Blood Count 4.14 X10*6/uL (4.60-5.80); Red Cell Distribution Width 14.3 % (11.0-16.0); Retic HGB Equivalent 35.5 pg (30.0-35.0); Reticulocyte Percent 1.2 % (0.5-1.8); Reticulocytes Absolute 0.048 X10*6/uL (0.026-0.095); White Blood Count 7.2 X10*3/uL (4.8-10.8)
[2024-08-11 11:49] LABS: Creatinine Urine 70.77 mg/dL; Microalbum/Creatinine Ratio Ur 16.9 ug/mg cr (<30)
[2024-08-11 11:53] LABS: Alanine Aminotransferase 38 U/L (0-40); Albumin Level 4.1 g/dL (3.5-5.0); Alkaline Phosphatase 119 U/L (39-117); Anion Gap 10 (12-20); Aspartate Amino Transferase 37 U/L (5-37); Bilirubin Total 0.4 mg/dL (0.0-1.0); Blood Urea Nitrogen 28 mg/dL (9-16); Calcium 9.2 mg/dL (8.4-10.2); Carbon Dioxide 27 mmol/L (22-29); Chloride 107 mmol/L (96-108); Cholesterol 134 mg/dL (<200); Estimated Glomerular Filt Rate > 60; Glucose Random 142 mg/dL (60-115); HDL Cholesterol 53 mg/dL (>40); Iron 84 mcg/dL (45-160); LDL Cholesterol Calculated 63 mg/dL (<100); Percent Iron Saturation 37 % (15-50); Potassium 3.9 mmol/L (3.3-5.1); Sodium 140 mmol/L (135-145); Total Iron Binding Capacity 225 mcg/dL (228-428); Total Protein 7.3 g/dL (6.5-8.0); Triglycerides 92 mg/dL (<150); Unsaturated Iron Binding 141 ug/dL
[2024-08-11 12:07] LABS: Ferritin 163 ng/mL (20-250); Lactate Dehydrogenase 277 U/L (118-273)
[2024-08-11 12:21] LABS: Folate 9.7 ng/mL (> or = 4.0); Vitamin B12 468 pg/mL (200-900)
[2024-08-11 13:14] LABS: Reflex LDLD? No
== END 2024-08-11 07:58 | disposition home or self-care (01) ==
LOC: HO.HHCL 07:57
PROVIDERS: Visit Provider Family Medicine
DX: D64.9 Anemia, unspecified (principal); E11.59 Type 2 diabetes mellitus with other circulatory complications; I10 Essential (primary) hypertension; C85.9A Non-Hodgkin lymphoma, unspecified, in remission; E78.5 Hyperlipidemia, unspecified; Z79.4 Long term (current) use of insulin
CPT/HCPCS: 80053; 80061; 82043; 82570; 82607; 82728; 82746; 83540; 83615; 85025; 85045

== ENCOUNTER 2024-12-17 09:38 | Outpatient (REF) | payer OTHER, SELFPAY ==
--- OUTSIDE RECORDS SUMMARY | 2024-12-17 10:38 | XMS_ITS | Encounter Summary ---
Author Organization [employer] Address [address] [facility] [address] [place] [address] Care Team Providers Care Race Car Driver Name Role Phone Marta Washington MD Primary Care Provider [phone] Tahir Siu PharmD Unavailable [phone] Encounter Details Date Type Department Care Team (Latest Contact Info) Description 12/17/2024 Travel Social History Tobacco Use Types Packs/Day [...] Care Team (Late st Contact Info) Description 02/02/2025 9:00 AM EST Office Visit [address] [address] Marta Washington MD [address] [place] [phone] 04/01/2025 9:00 AM EST Medication Management [address] [address] Tahir Siu PharmD [address] [place] [phone] documented as of this encounter Goals Goal Patient Goal Type Associated Problems Recent Progress Patient-Stated? Author Blood Pressure < 140/90 Blood Pressure 122/58(2024 9:15 AM EDT) No Tahir Siu, PharmRupa Hemoglobin A1c < 7 Result Component 8.7( 9:53 AM EDT) No Tahir Siu PharmD documented as of this encounter Visit Diagnoses Not on filedocumented in this encounter Additional Health Concerns Assessment Noted Time PHQ-9 Depression Total Score: 0 07/30/19 25 9:01 AM EDT documented as of this encounter Care Teams Race Car Driver Relationship Specialty Start Date End Date Marta Washington MD [address] [place] [address] PCP - General Family Medicine 07/03/16 Tahir Siu, RebaD [address] [place] [phone] Pharmacist Internal Medicine 11/11/22 documented as of this encounter
--- OUTSIDE RECORDS SUMMARY | 2024-12-17 10:38 | XMS_ITS | Encounter Summary ---
Author Organization [employer] Address [address] [address] [place] [address] Care Team Providers Care Video Systems Engineer Name Role Phone Marta Washington MD Primary Care Provider [phone] Tahir Siu PharmD Unavailable [phone] Encounter Details Date Type Department Care Team (Latest Contact Info) Description 11/25/2019 Abstract [facility] CONVERSIONS Dental, Provider, DDS Social [...] Description 02/02/2025 9:00 AM EST Office Visit [facility] [address] [place] [phone] Marta Washington MD [address] [place] [phone] 04/01/2025 9:00 AM EST Medication Management [facility] [address] [place] [phone] Tahir Siu, PharmD [address] [place] [address] documented as of this encounter Visit Diagnoses Not on filedocumented in this encounter Care Teams Video Systems Engineer Relationship Specialty Start Date End Date Marta Washington MD [address] [place], [place] [phone] PCP - General Family Medicine 07/03/16 Tahir Siu PharmD [address] [place] [address] Pharmacist Internal Medicine 11/11/22 documented as of this encounter
--- OUTSIDE RECORDS SUMMARY | 2024-12-17 10:38 | XMS_ITS | Encounter Summary ---
Author Organization [email or web address] Address [address] [facility] 7t [place] [address] Care Team Providers Care Supply Coordinator Name Role Phone Marta Washington MD Primary Care Provider [phone] Tahir Siu PharmD Unavailable [phone] Encounter Details Date Type Department Care Team (Late st Contact Info) Description 12/04/[address] [facility] MEDICINE [address] [place], [place] [phone] Marta Washington MD [address] [place], [place] [phone] Social History Tobacco Use Types Packs/Day Years [...] is a TB documentation form, from [facility], that needs to be completed. Thank you. Tspot order for patient for work. documented in this encounter Plan of Treatment Upcoming Encounters Date Type Department Care Team (Late st Contact Info) Description 02/02/2025 9:00 AM EST Office Visit [facility] MEDICINE [address] [place] [address] [phone] Marta Washington MD [address] [place] [address] [phone] 04/01/2025 9:00 AM EST Medication Management [facility] MEDICINE [address] [place] [address] [phone] Tahir Siu PharmD [address] [place] [phone] Scheduled Orders Name Type Priority Associated Diagnoses Orde r Schedule T-SPOT .TB Lab Routine Screening for tuberculosis Expected: 12/05/2022 (Approximate), Expires: 12/06/2023 documented as of this encounter Goals Goal Patient Goal Type Associated Problems Recent Progress Patient-Stated? Author Blood Pressure < 140/90 Blood Pressure 122/58(2024 9:15 AM EDT) No Tahir Siu PharmD Hemoglobin A1c < 7 Result Component 8.7( 9:53 AM EDT) No Tahir Siu PharmD documented as of this encounter Visit Diagnoses Diagnosis Screening for tuberculosis Screening examination for pulmonary tuberculosis documented in this encounter Additional Health Concerns Assessment Noted Time PHQ-9 Depression Total Score: 0 04/22/19 23 10:14 AM EST documented as of this encounter Care Teams Supply Coordinator Relationship Specialty Start Date End Date Marta Washington MD [address] [place] [address] [phone] PCP - General Family Medicine 07/03/16 Tahir Siu PharmD [address] [place] [address] [phone] Pharmacist Internal Medicine 11/11/22 documented as of this encounter
--- OUTSIDE RECORDS SUMMARY | 2024-12-17 10:38 | XMS_ITS | Encounter Summary ---
Author Organization [employer] Address 75 [facility] 7t [place] [address] Care Team Providers Care Oil Field Pipeline Supervisor Name Role Phone Marta Washington MD Primary Care Provider [phone] Tahir Siu PharmD Unavailable [phone] Reason for Referral * Consultation (Routine) - Closed Specialty Diagnoses / Procedures Referred By Isreal lim Referred To Contact Speech Pathology Diagnoses Choking, initial encounter Marta Washington MD [address] [place] [address] Phone: tel: fax: [facility] [address] 1st Floor [place], [place] Phone: tel: fax: Referral ID Status Reason Start Date Expiration Date V isits Requested Visits Authorized [id number] Closed Specialty Services Required 09/15/2023 09/14/2024 1 1 * Imaging (Routine) - Closed Specialty Diagnoses / Procedures Referred By Isreal lim Referred To Contact Radiology Diagnoses Choking, initial encounter Procedures FL BARIUM SWALLOW MODIFIED Marta Washington MD [address] [place] [address] Phone: tel: fax: [facility] [address] [place] [address] Phone: tel: fax: Referral ID Status Reason Start Date Expiration Date V isits Requested Visits Authorized [id number] Closed Perform Procedure 09/15/2023 09/14/2024 1 1 Encounter Details Date Type Department Care Team (Late st Contact Info) Description 09/15/2023 Orders Only [facility] MEDICINE [address] [place] [address] Marta Washington MD [address] [place] [address] Choking, initial encounter (Primary Dx) Social History [...] Description 02/02/2025 9:00 AM EST Office Visit [facility] MEDICINE [address] [place] [address] [phone] Marta Washington MD [address] [place], [place] [phone] 04/01/2025 9:00 AM EST Medication Management [facility] MEDICINE [address] [place] [address] [phone] Tahir Siu PharmD [address] [place] [address] [phone] Scheduled Referrals Name Type Priority Associated Diagnoses [...] PM EDT Narrative 11/05/2023 9:06 AM EDT [address] [address] Fluoroscopy Report Signed Patient: Thad Van MR #: [id number] : 1940 Acct:[id number] Age/Sex: 82 / M ADM Date: 11/03/23 Loc: HO.XRAY Attending Dr: Marta Washington MD Ordering Physician: Marta Washington MD Date of Service: 11/03/23 Procedure(s): FL barium swallow modified Accession Number(s): [id number] cc: Marta Washington MD EXAMINATION: Modified Barium [...] in OV> 11/05/23 0906 DD/ 1505 TD/TT: Account Assistant: Procedure Note Donotuseinterpreter, Image - 11/05/[address] [address] Fluoroscopy Report Signed Patient: Emery Van #: [id number] : [id number]:[id number] Age/Sex: 82 / MADM Date: 11/03/23 Loc: HO.XRAY Attending Dr: Marta Washington MD Ordering Physician: Marta Washington MD Date of Service: 11/03/23 Procedure(s): FL barium swallow modified Accession Number(s): [id number] cc: Marta Washington MD EXAMINATION: Modified Barium [...] in OV> 11/05/23 0906 DD/ 1505 TD/TT: Account Assistant: Marta Washington MD IMG FLUOROSCOPY PROCEDURES Final Result documented in this encounter Visit Diagnoses Diagnosis Choking, initial encounter- Primary documented in this encounter Additional Health Concerns Assessment Noted Time PHQ-9 Depression Total Score: 3 07/29/19 24 9:26 AM EDT documented as of this encounter Care Teams Oil Field Pipeline Supervisor Relationship Specialty Start Date End Date Marta Washington MD [address] [place] [address] PCP - General Family Medicine 07/03/16 Tahir Siu PharmD [address] [place] [address] Pharmacist Internal Medicine 11/11/22 documented as of this encounter
--- OUTSIDE RECORDS SUMMARY | 2024-12-17 10:38 | XMS_ITS | Encounter Summary ---
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); Anemia, unspecified type; Dyslipidemia; T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, with long-term current use of insulin (CMS/HCC); Primary hypertension Social History Tobacco Use Types [...] Description 02/02/2025 9:00 AM EST Office Visit [address] [address] Marta Washington MD [address] [place] [phone] 04/01/2025 9:00 AM EST Medication Management [facility] MEDICINE [address] [place] [phone] Tahir Siu PharmD [address] [place] [phone] documented as of this encounter Goals Goal Patient Goal Type Associated Problems Recent Progress Patient-Stated? Author Blood Pressure < 140/90 Blood Pressure 122/58(2024 9:15 AM EDT) No Tahir Siu, PharmRupa Hemoglobin A1c < 7 Result Component 8.7( 9:53 AM EDT) No Tahir Siu, Tierney documented as of this encounter Procedures Procedure Name Priority Date/Time Associated Diagnosis Comments PATHOLOGIST REVIEW - CBC Routine 08/11/2024 7:59 AM EDT Anemia, unspecified type VITAMIN B12/FOLATE, SERUM PANEL Routine 08/11/2024 7:59 AM EDT Anemia, unspecified type LIPID PANEL WITH REFLEX TO DIRECT LDL Routine 08/11/2024 7:59 AM EDT Dyslipidemia ALBUMIN, RANDOM URINE W/CREATININE Routine 08/11/2024 7:59 AM EDT T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, with long-term current use of insulin ([facility]) Primary hypertension CBC WITH AUTO DIFFERENTIAL Routine 08/11/2024 7:59 AM EDT Anemia, unspecified type IRON AND TOTAL IRON BINDING CAPACITY Routine 08/11/2024 7:59 AM EDT Anemia, unspecified type RETICULOCYTE COUNT Routine 08/11/2024 7: 59 AM EDT Anemia, unspecified type LD Routine 08/11/2024 7:59 AM EDT Lymphoma in remission ([facility]) Anemia, unspecified type FERRITIN Routine 08/11/2024 7:59 AM EDT Anemia, unspecified type COMPREHENSIVE METABOLIC PANEL Routine 08/11/2024 7:59 AM EDT Primary hypertension documented in this encounter Results * Vitamin B12 (Cobalamin) and Folate Panel, Serum (08/11/2024 7:59 AM EDT) Vitamin B12 468 200 - 900 pg/mL [facility] Comment:NORMAL 200-900 PG/ML INDETERMINATE 160-199 PG/ML DEFICIENT < 160 PG/ML Folate 9.7 > or = 4.0 ng/mL [facility] Comment:Reference Values:> o r = 4.0 ng/mL< 4.0 ng/mL suggests folate deficiency Methotrexate, aminopterin and folinic acid(leucovorin) are chemotherapeutic agents whose molecularstructures are similar to folate; therefore, the Architectfolate assay cannot be used for patients using these drugs. Blood 08/11/2024 7:59 AM EDT 08/11/2024 11:04 AM EDT Marta Washington MD LAB BLOOD ORDERABLES Final Resul t Performing Organization Address [facility] de Phone Number [facility] [address] [place] [phone] * (ABNORMAL) Reticulocyte Count (08/11/2024 7:59 AM EDT) Reticulocytes Absolute 0.048 0.026 - 0.095 X10*6/uL [facility] Immature Retic Fraction 13.1 2.3 - 13.4 % [facility] Retic HGB Equivalent 35.5(H) 30.0 - 35.0 pg [facility] Reticulocyte Percent 1.2 0.5 - 1.8 % [facility] Blood Venous blood specimen / Unknown 08/11/2024 7:59 AM EDT 08/11/2024 11:04 AM EDT Marta Washington MD LAB BLOOD ORDERABLES Final Resul t Performing Organization Address [facility] de Phone Number [facility] [address] [place] [phone] * Pathologist Review - CBC (08/11/2024 7:59 AM EDT) Pathologist Review - CBC SEE NOTE [facility] Comment:Normochromic normocy tic anemia; echinocytes are present.White blood cells are overall normal appearing. Plateletsare normal appearing.- Tuan Albright M.D. Pathology Blood Venous blood specimen / Unknown 08/11/2024 7:59 AM EDT 08/11/2024 11:04 AM EDT us Marta Washington MD LAB BLOOD ORDERABLES Final Resul t Performing Organization Address [facility] Co de Phone Number [facility] [address] [place] [phone] * (ABNORMAL) Iron And Total Iron Binding Capacity (08/11/2024 7:59 AM EDT) Pathologist [facility] Iron 84 45 - 160 mcg/dL [facility] Total Iron Binding Capacity 225(L) 228 - 428 mcg/dL [facility] Percent Iron Saturation 37 15 - 50 % [facility] Unsaturated Iron Binding 141 ug/dL [facility] Blood Venous blood specimen / Unknown 08/11/2024 7:59 AM EDT 08/11/2024 11:04 AM EDT us Marta Washington MD LAB BLOOD ORDERABLES Final Resul t Performing Organization Address [facility] Co de Phone Number [facility] [address] [place] [phone] * Ferritin (08/11/2024 7:59 AM EDT) [facility] Ferritin 163 20 - 250 ng/mL [facility] Blood Venous blood specimen / Unknown 08/11/2024 7:59 AM EDT 08/11/2024 11:04 AM EDT Marta Washington MD LAB BLOOD ORDERABLES Final Resul t Performing Organization Address [facility] Co de Phone Number [facility] [address] [place] [phone] * Lipid Panel with Reflex to Direct LDL (08/11/2024 7:59 AM EDT) Pathologist [facility] Triglycerides 92 <150 mg/dL [facility] Comment:Desirable Triglyceri de: less than 150 mg/dLBorderline High Triglyceride 150-199 mg/dLHigh Triglyceride: 200-499 mg/dLVery High Triglyceride: greater than or equal to 5OO mg/dL Cholesterol 134 <200 mg/dL [facility] Comment:Desirable Cholestero l: less than 200 mg/dLBorderline High Cholesterol: 200-239 mg/dLHigh Cholesterol: greater than 239 mg/dL LDL Cholesterol Calculated 63 <100 mg/dL [facility] Comment:Desirable LDL: less than 100 mg/dLNear Optimal/Above Optimal LDL: 110- 129 mg/dLBorderline High LDL: 130-159 mg/dLHigh LDL: 160-189 mg/dLVery High LDL: greater than or equal to 190 mg/dL HDL Cholesterol 53 >40 mg/dL [facility] Comment:Desirable HDL: great er than 40 mg/dL Note: This HDL assay may give artificially low results in patients with liver disease. Blood 08/11/2024 7:59 AM EDT 08/11/2024 11:04 AM EDT us Marta Washington MD LAB BLOOD ORDERABLES Final Resul t Performing Organization Address [facility] Co de Phone Number [facility] [address] [place] [address] [phone] * Albumin, Random Urine W/Creatinine (08/11/2024 7:59 AM EDT) Creatinine, Urine 70.77 mg/dL [facility] Microalbumin Urine 12.0 mg/L [facility] Microalbum Creatinine Ratio Ur 16.9 <30 ug/mg cr [facility] Comment:Albumin/Creatinine R atio Reference Ranges: Normal: < 30 ug/mg creatinine Microalbuminuria: 30 - 300 ug/mg creatinineClinical Albuminuria: > 300 ug/mg creatinine Urine 08/11/2024 7:59 AM EDT 08/11/2024 10:59 AM EDT us Marta Washington MD LAB URINE ORDERABLES Final Resul t Performing Organization Address [facility] Co de Phone Number [facility] [address] [place] [phone] * (ABNORMAL) Comprehensive Metabolic Panel (08/11/2024 7:59 AM EDT) Sodium 140 135 - 145 mmol/L [facility] Potassium 3.9 3.3 - 5.1 mmol/L [facility] Chloride 107 96 - 108 mmol/L [facility] Carbon Dioxide 27 22 - 29 mmol/L [facility] Anion Gap 10(L) 12 - 20 [facility] Urea Nitrogen (BUN) 28(H) 9 - 16 mg/dL [facility] Creatinine, Serum 1.11 0.5 - 1.4 mg/dL [facility] Estimated Glomerular Filt Rate >60 [facility] Comment:Chronic Kidney Disea se: Estimated GFR < 60 mL/min/[id number] Kidney Disease: Estimated GFR < 15 mL/min/1.73m2 Glucose 142(H) 60 - 115 mg/dL [facility] Calcium 9.2 8.4 - 10.2 mg/dL [facility] Bilirubin, Total 0.4 0.0 - 1.0 mg/dL [facility] Aspartate Amino Transferase 37 5 - 37 U/L [facility] Alanine Aminotransferase 38 0 - 40 U/L [facility] Total Protein 7.3 6.5 - 8.0 g/dL [facility] Albumin Level 4.1 3.5 - 5.0 g/dL [facility] Alkaline Phosphatase 119(H) 39 - 117 U/L [facility] Blood Venous blood specimen / Unknown 08/11/2024 7:59 AM EDT 08/11/2024 11:04 AM EDT us Marta Washington MD LAB BLOOD ORDERABLES Final Resul t [facility] [address] [place] [address] [phone] * (ABNORMAL) Lactate Dehydrogenase (LD) (08/11/2024 7:59 AM EDT) Pathologist [facility] Lactate Dehydrogenase 277(H) 118 - 273 U/L [facility] Blood Venous blood specimen / Unknown 08/11/2024 7:59 AM EDT 08/11/2024 11:04 AM EDT us Marta Washington MD LAB BLOOD ORDERABLES Final Resul t [facility] [address] [place] [phone] * (ABNORMAL) CBC auto differential (08/11/2024 7:59 AM EDT) [facility] White Blood Count 7.2 4.8 - 10.8 X10*3/uL [facility] Red Blood Count 4.14(L) 4.60 - 5.80 X10*6/uL [facility] Hemoglobin 12.9(L) 14.0 - 18.0 g/dl [facility] Hematocrit 39.2(L) 42.0 - 52.0 % [facility] Mean Corpuscular Volume 94.7 80.0 - 98.0 fL [facility] Mean Corpuscular Hemoglobin 31.2 27.0 - 33.0 pg [facility] Mean Corpuscular HGB Conc 32.9 31.0 - 36.0 g/dl [facility] Red Cell Distribution Width 14.3 11.0 - 16.0 % [facility] Platelet Count 191 160 - 400 X10*3/uL [facility] Mean Platelet Volume 9.9 9.4 - 12.4 fL [facility] Neutrophils Percent Auto 58.7 45 - 73 % [facility] Imm Gran Pct Auto 0.4 0.0 - 0.4 % [facility] Lymphocytes Percent Auto 23.3 20 - 40 % [facility] Monocytes Percent Auto 10.3 2 - 11 % [facility] Eosinophils Percent Auto 6.7(H) 0 - 4 % [facility] Basophils Percent Auto 0.6 0 - 2 % [facility] NRBC Pct Auto 0.0 0.0 - 0.2 /100WBC [facility] Neutrophils Absolute Auto 4.2 2.0 - 8.3 x10*3/uL [facility] Imm Gran Abs Auto 0.03 0.00 - 0.03 X10*3/uL [facility] Lymphocytes Absolute Auto 1.7 1.2 - 4.9 X10*3/uL [facility] Monocytes Absolute Auto 0.7 0.1 - 1.2 X10*3/uL [facility] Eosinophils Absolute Auto 0.5(H) 0.0 - 0.4 X10*3/uL [facility] Basophils Absolute Auto 0.0 0.0 - 0.2 X10*3/uL [facility] NRBC Abs Auto 0.000 0.0 - 0.012 X10*3/uL [facility] Blood Venous blood specimen / Unknown 08/11/2024 7:59 AM EDT 08/11/2024 11:04 AM EDT us Marta Washington MD LAB BLOOD ORDERABLES Final Resul t [facility] [address] [place] [address] [phone] documented in this encounter Visit Diagnoses Diagnosis 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, unspecified site, extranodal and solid organ sites Anemia, unspecified type Dyslipidemia Other and unspecified hyperlipidemia T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, with long-term current use of insulin (CMS/HCC) Primary hypertension Unspecified essential hypertension documented in this encounter Additional Health Concerns Assessment Noted Time PHQ-9 Depression Total Score: 3 07/29/19 24 9:26 AM EDT documented as of this encounter Care Teams Ems Instructor Relationship Specialty Start Date End Date Marta Washington MD [address] [place] [phone] PCP - General Family Medicine 07/03/16 Tahir Siu, RebaD [address] [place] [phone] Pharmacist Internal Medicine 11/11/22 documented as of this encounter
--- OUTSIDE RECORDS SUMMARY | 2024-12-17 10:38 | XMS_ITS | Encounter Summary ---
Author Organization [employer] Address [address] [facility] 7t [place] [address] Care Team Providers Care Fruit Press Operator Name Role Phone Marta Washington MD Primary Care Provider [phone] Tahir Siu PharmD Unavailable [phone] Encounter Details Date Type Department Care Team (Latest Contact Info) Description 09/20/2021 Abstract [facility] CONVERSIONS Dental, Provider, DDS Social History [...] Upcoming Encounters Date Type Department Care Team ( st Contact Info) Description 02/02/2025 9:00 AM EST Office Visit [facility] MEDICINE [address] [place] [phone] Marta Washington MD [address] [place] [phone] 04/01/2025 9:00 AM EST Medication Management [facility] MEDICINE [address] [place] [phone] Tahir Siu, PharmD [address] [place] [address] documented as of this encounter Visit Diagnoses Not on filedocumented in this encounter Care Teams Fruit Press Operator Relationship Specialty Start Date End Date Marta Washington MD [address] [place], [place] [phone] PCP - General Family Medicine 07/03/16 Tahir Siu PharmD [address] [place] [phone] Pharmacist Internal Medicine 11/11/22 documented as of this encounter
--- OUTSIDE RECORDS SUMMARY | 2024-12-17 10:38 | XMS_ITS | Encounter Summary ---
Author Organization [employer] Address 75 [facility] 7t [place] [address] Care Team Providers Care Accounts Payable Processor Name Role Phone Marta Washington MD Primary Care Provider [phone] Tahir Siu PharmD Unavailable [phone] Encounter Details Date Type Department Care Team (Late st Contact Info) Description 05/26/2024 Orders Only [facility] MEDICINE [address] [place], [place] [phone] Marta Washington MD [address] [place], [place] [phone] Social History Tobacco Use Types Packs/Day Years [...] Description 02/02/2025 9:00 AM EST Office Visit [facility] MEDICINE [address] [place] [phone] Marta Washington MD [address] [place] [phone] 04/01/2025 9:00 AM EST Medication Management [address] [address] Tahir Siu PharmD [address] [place] [phone] documented as of this encounter Goals Goal [...] documented as of this encounter Care Teams Accounts Payable Processor Relationship Specialty Start Date End Date Marta Washington MD [address] [place] [address] PCP - General Family Medicine 07/03/16 Tahir Siu, Tierney [address] [place] [address] Pharmacist Internal Medicine 11/11/22 documented as of this encounter
--- OUTSIDE RECORDS SUMMARY | 2024-12-17 10:38 | XMS_ITS | Encounter Summary ---
Author Organization [employer] Address [address] [facility] [address] [place] [address] Care Team Providers Care Bag Sewer Name Role Phone Marta Washington MD Primary Care Provider [phone] Tahir Siu PharmD Unavailable [phone] Reason for Referral * Consultation (Routine) - Pending Review Specialty Diagnoses / Procedures Referred By Isreal lim Referred To Contact Pharmacy Diagnoses T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, with long-term current use of insulin (CMS/HCC) Primary hypertension Marta Washington MD [address] [place] [address] Phone: tel: fax: Referral ID Status Reason Start Date Expiration Date Visits Requested Visits Authorized [id number] Pending Review Consult and Treat 05/27/2024 05/27/2025 6 6 Encounter Details Date Type Department Care Team (Late st Contact Info) Description 05/27/2024 Orders Only [facility] [address] [place], [place] [phone] Marta Washington MD [address] [place], [place] [phone] Type 2 diabetes mellitus with other circulatory [...] your housing situation today? I have rekha more 07/21/[address] you li [...] Description 02/02/2025 9:00 AM EST Office Visit [facility] [address] [place] [address] Marta Washington MD [address] [place] [address] 04/01/2025 9:00 AM EST Medication Management [facility] [address] [place] [address] Tahir Siu PharmD [address] [place] [address] Scheduled Referrals Name Type Priority Associated Diagnoses Orde r Schedule Referral to Pharmacy CDTM Outpatient Referral Routine T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, with long-term current use of insulin ([facility]) Primary hypertension Ordered: 05/27/2024 documented as of [...] complication, with long-term current use of insulin ([facility])- Primary Primary hypertension Unspecified essential hypertension documented in this encounter Additional Health Concerns Assessment Noted Time PHQ-9 Depression Total Score: 3 07/29/19 24 9:26 AM EDT documented as of this encounter Care Teams Bag Sewer Relationship Specialty Start Date End Date Marta Washington MD [address] [place] [phone] PCP - General Family Medicine 07/03/16 Tahir Siu PharmD [address] [place] [phone] Pharmacist Internal Medicine 11/11/22 documented as of this encounter
--- OUTSIDE RECORDS SUMMARY | 2024-12-17 10:38 | XMS_ITS | Clinical Summary ---
Author Organization [employer] Address [address] [facility] [address] [place] [address] Care Team Providers Care Guitar Maker Name Role Phone Marta Washington MD Primary Care Provider [phone] Tahir Siu PharmD Unavailable [phone] Allergies No known active allergies Medications Continuous Glucose Electrician'S Assistant (ReferStarStyle Romel 2 Pinnacle) device Scan sensor every 8 hours 1 each 024 Active docusate sodium (Colace) 100 MG capsuleIndicatio ns:Chronic idiopathic constipation TAKE 1 CAPSULE BY MOUTH TWICE DAILY IN THE MORNING AND AT BEDTIME 180 capsule 3 024 Active Alcohol Swabs (Alcohol Prep) 70 % padsIndications: T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, with long-term current use of insulin (CMS/HCC) USE FOUR TIMES DAILY NEEDED 200 each 11 024 Active B-D UF III MINI PEN NEEDLES 31G X 5 MM miscIndications: Type 2 diabetes mellitus with hyperglycemia (CMS/HCC) USE DIRECTED FOUR TIMES DAILY 100 each 11 025 Active losartan (Cozaar) 100 MG tablet [...] BY MOUTH AT BEDTIME 90 tablet 1 2 025 Active aspirin (Aspirin Low Dose) 81 MG EC tabletIndication s:History of stroke TAKE 1 TABLET BY MOUTH EVERY MORNING 90 tablet Active empagliflozin-me tFORMIN (Synjardy) 5-1000 MG Take 1 tablet by mouth with breakfast and with evening meal. 60 tablet 2025 Active TRUEplus Lancets 33G miscIndications: T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, with long-term current use of insulin ([facility]) TEST BLOOD SUGAR 5-6 TIMES PER DAY 200 each Active glucose blood (FreeStyle Precision Vincent Test) test stripIndications :T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, with long-term current use of insulin ([facility]) USE DIRECTED TO TEST BLOOD SUGAR 3 TO 6 TIMES DAILY 100 strip Active Continuous Glucose Sensor (FreeStyle Romel 2 Sensor) miscIndications: T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, with long-term current use of insulin ([facility]) Apply 1 sensor every 14 days 2 each Active NovoLOG FLEXPEN 100 UNIT/ML penIndications:T ype 2 diabetes mellitus with hyperglycemia ([facility]) INJECT 6 UNITS SUBCUTANEOUSLY WITH MEALS 15 mL 025 Active insulin glargine (Lantus SoloStar) 100 UNIT/ML penIndications:T 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, with long-term current use of insulin ([facility]) Inject 30 units subcutaneously every evening 15 mL 025 Active Ferrous Sulfate (iron) 325 (65 Fe) MG tablet TAKE 1 TABLET BY MOUTH TWICE DAILY IN THE MORNING AND IN THE EVENING WITH ORANGE JUICE 60 tablet 025 Active Semaglutide,0.25 or 0.5MG/DOS, (Ozempic, 0.25 or 0.5 MG/DOSE,) 2 MG/3ML solution pen-injectorIndi cations:T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, with long-term current use of insulin ([facility]) Inject 0.5 mg under the skin 1 (one) time per week. 3 mL 3 025 Active semaglutide (Ozempic) 2 MG/1.5ML solution pen-injector Inject 1 mg under the skin 1 (one) time per week. 2 each 024 2024 Discontinued(D ose adjustment) Ferrous Sulfate (iron) 325 (65 Fe) MG tablet TAKE 1 TABLET BY MOUTH TWICE DAILY IN THE MORNING AND IN THE EVENING WITH ORANGE JUICE 60 tablet 1 025 2024 Discontinued Active Problems Problem Noted Date Diagnosed Date Health care maintenance 07/29/2024 Assessment & Plan (11/01/2024 5:03 AM EDT): Last physical exam in July 2024 Prevention - discussed about safety - reviewed mental and behavioral health Cancer screening - colon: average risk. Last colonoscopy in 2018 showed tubular adenoma. - skin: risk - lung: risk - prostate: not indicated Functional capacity Assessment & Plan (07/29/2024 5:13 AM EDT): Prevention - discussed about safety - reviewed mental and behavioral health Cancer screening - colon: average risk. Last colonoscopy in 2018 showed tubular adenoma. 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 Chronic lacunar infarct of the left gan radiata. - continue being socially interactive. - normal TSH and B12 - MOCA score 24 out of 30 points; mini MMSE was normal. He is great at subtraction. - refer to memory clinic if he has any benefit for pharmacological treatment benefit. Assessment & Plan (07/30/2024 6:48 AM EDT): [...] vascular dementia - will check with his semiconductor engineer for carotid US - due to his risk factors, will consider MRI or MRA. - MR Brain ordered 09/27/23 Assessment & Plan (10/30/2023 10:10 AM EDT): - seemingly age-appropriate memory problem - possible vascular dementia - will check with his semiconductor engineer for carotid US - due to his risk factors, will consider MRI or MRA. Assessment & Plan (09/27/2023 6:15 AM EDT): - seemingly age-appropriate memory problem - possible vascular dementia - will check with his semiconductor engineer for carotid US - due to his [...] history of skin cancer - seen by cash register balancer, Dr. Bright in Jan 2024 - AK lesions were treated with cryotherapy Assessment & Plan (03/06/2024 6:23 AM EST): - history of skin cancer - seen by cash register balancer, Dr. 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 Assessment & Plan (07/30/2024 6:48 AM EDT): Oncologist: [facility], last seen in 02/27/22 Dx in 2019 [...] & Plan (03/10/2023 5:08 AM EST): Oncologist: [facility], last seen in 02/27/22 Dx in 2019 [...] & Plan (12/15/2022 6:14 PM EDT): Oncologist: [facility], last seen in 02/27/22 Dx in 2019 [...] & Plan (07/30/2024 6:49 AM EDT): Oncologist: [facility], last seen 02/25/22 Dx in 2019 -Pathology [...] & Plan (05/14/2024 5:43 AM EST): Oncologist: [facility], last seen 02/25/22 Dx in 2019 -Pathology [...] & Plan (01/28/2024 10:03 PM EST): Oncologist: [facility], last seen 02/25/22 Dx in 2019 -Pathology [...] & Plan (09/26/2023 1:26 PM EDT): Oncologist: [facility], last seen 02/25/22 [...] & Plan (09/23/2022 3:01 PM EDT): Oncologist: [facility], last seen 02/25/22 Dx in 2019 -Pathology [...] & Plan (07/23/2022 10:20 AM EDT): Oncologist: [facility], last seen 02/25/22 Dx in 2019 -Pathology [...] & Plan (04/27/2022 7:03 AM EST): Oncologist: [facility], last seen 02/25/22 Dx in 2019 -Pathology [...] History of stroke 04/21/2022 Assessment & Plan (11/01/2024 9:43 AM EDT): -Work on risk factor management / secondary prevention. Using ASA as antiplatelet agent. -Carotid US on 09/13/22 b/l stenosis 15-49% -MRI on 02/07/24 showed chronic lacunar infarct of the left gan radiata. Assessment & Plan (05/11/2024 8:43 AM EST): [...] carotid artery stenosis 04/21/2022 Assessment & Plan (10/31/2024 8:35 PM EDT): - Hx left side CVA - 12/29/23 Carotid US showed bilateral carotid stenosis, moderate 16-49%. - Continue working on secondary prevention / risk factor management Assessment & Plan (07/30/2024 6:37 AM EDT): [...] Aortic valve stenosis 10/31/2016 Assessment & Plan (10/31/2024 8:36 PM EDT): - Followed by [facility] with annual echocardiogram -TTE on 07/24/21 Moderate [...] regurgitation. Mild mitral stenosis. Assessment & Plan (07/30/2024 6:39 AM EDT): - Followed by [facility] with annual echocardiogram -TTE on 07/24/21 Moderate [...] 8:42 AM EST): - Followed by [facility] with annual echocardiogram -TTE on 07/24/21 Moderate [...] EST): - [facility] -TTE on 07/24/21 Moderate [...] 6:19 AM EST): - Followed by [facility] with annual echocardiogram -TTE on 07/24/21 Moderate [...] 10:06 AM EDT): - Followed by [facility] with annual echocardiogram -TTE on 07/24/21 Moderate LVH. EF 60-65%. Moderate aortic stenosis. Mild aortic regurgitation -TTE on 08/09/22. Normal left ventricular function EF 60-65%. Showed mild aortic stenosis. - Optimize risk factor management Assessment & Plan (07/29/2023 9:40 AM EDT): - [facility] annual [facility] -TTE on 07/24/21 Moderate LVH. EF 60-65%. Moderate aortic stenosis. Mild aortic regurgitation -TTE on 08/09/22. Normal left ventricular function EF 60-65%. Showed mild aortic stenosis. - Optimize risk factor management Assessment & Plan (03/10/2023 5:07 AM EST): - [facility] with annual echocardiogram -TTE on 07/24/21 Moderate LVH. EF 60-65%. Moderate aortic stenosis. Mild aortic regurgitation -TTE on 08/09/22. Normal left ventricular function EF 60-65%. Showed mild aortic stenosis. - Optimize risk factor management Assessment & Plan (12/15/2022 6:03 PM EDT): - Followed by [facility] with annual echocardiogram -TTE on 07/24/21 Moderate LVH. EF 60-65%. Moderate aortic stenosis. Mild aortic regurgitation -TTE on 08/09/22. Normal left ventricular function EF 60-65%. Showed mild aortic stenosis. - Optimize risk factor management Assessment & Plan (09/24/2022 12:39 PM EDT): - Followed by [facility] with annual echocardiogram -TTE on 07/24/21 Moderate LVH. EF 60-65%. Moderate aortic stenosis. Mild aortic regurgitation -TTE on 08/09/22. Normal left ventricular function EF 60-65%. Showed mild aortic stenosis. - Optimize risk factor management Assessment & Plan (07/09/2022 3:43 PM EDT): - Followed by [facility] with annual echocardiogram - Last echo on 07/24/21 Moderate LVH. EF 60-65%. Moderate aortic stenosis. Mild aortic regurgitation - Optimize risk factor management Assessment & Plan (04/27/2022 6:53 AM EST): - Followed by [facility] with annual echocardiogram - Last echo on 07/24/21 Moderate LVH. EF 60-65%. Moderate aortic stenosis. Mild aortic regurgitation - Optimize risk factor management Obstructive sleep apnea syndrome 10/31/2016 Assessment & Plan (11/01/2024 9:44 AM EDT): - CPAP titration study completed [...] back to the supplier. Assessment & Plan (07/29/2024 10:24 AM EDT): [...] Peripheral venous insufficiency 10/31/2016 Assessment & Plan (10/31/2024 8:34 PM EDT): - Followed by [facility] provider - Last venous study in in June 2020 showed b/l GSV incomptence - Compression stocking / leg elevation / DASH diet / adequate physical activity Assessment & Plan (07/30/2024 6:35 AM EDT): - Followed by [facility] provider - Last venous study in in June 2020 showed b/l GSV incomptence - Compression stocking / leg elevation / DASH diet / adequate physical activity Assessment & Plan (01/28/2024 9:59 PM EST): - Followed by [facility] provider - Last venous study in in June 2020 showed b/l GSV incomptence - Compression stocking / leg elevation / DASH diet / adequate physical activity Assessment & Plan (07/29/2023 9:40 AM EDT): - Followed by [facility] provider - Last venous study in in June 2020 showed b/l GSV incomptence - Compression stocking / leg elevation / DASH diet / adequate physical activity Assessment & Plan (03/10/2023 5:06 AM EST): - Followed by [facility] provider - Last venous study in in June 2020 showed b/l GSV incomptence - Compression stocking / leg elevation / DASH diet / adequate physical activity Assessment & Plan (12/15/2022 6:06 PM EDT): - Followed by [facility] provider - Last venous study in in June 2020 showed b/l GSV incomptence - Compression stocking / leg elevation / DASH diet / adequate physical activity Assessment & Plan (09/23/2022 3:02 PM EDT): - Followed by [facility] provider - Last venous study in in June 2020 showed b/l GSV incomptence - Compression stocking / leg elevation / DASH diet / adequate physical activity Assessment & Plan (07/09/2022 3:42 PM EDT): - [facility] - Last venous study in in June 2020 showed b/l GSV incomptence - Compression stocking / leg elevation / DASH diet / adequate physical activity Assessment & Plan (04/27/2022 6:42 AM EST): - Followed by [facility] provider - Last venous study in in June 2020 showed b/l GSV incomptence - Compression stocking / leg elevation / DASH diet / adequate physical activity Type 2 diabetes mellitus 03/08/2015 Assessment & Plan (11/07/2024 6:24 AM EDT): A1C 8.7% on 11/01/24, increase from 8.2% on 07/29/24 - discrepancy from CGM-suggested A1C 7.2% (GMI). [...] on lifestyle modifications - patient has CGM [employer] DM Maintenance - Last eye exam: Apr 11, 2024. No diabetic retinopathy. Pt has a Hx of benign neoplasm of R eye. - Last foot exam: 10/30/23, high-risk - Last microalbumin test: 08/11/24 UACR 16.9, Hx microalbuminuria - Last lipid profile: 08/11/24 - Last dental exam: ?scheduled for 2022 Assessment & Plan (07/30/2024 6:46 AM EDT): [...] of cerebral infarction 11/30/2014 Assessment & Plan (11/01/2024 9:43 AM EDT): - left side CVA with right hemiparesis - continue risk factor management - most recent carotid US on 12/29/23 showed moderate b/l carotid stenosis, 16- 49%, stable. - ordered a hospital bed at home for treatment of his medical conditions and safety. - next carotid US in Dec 2024 Assessment & Plan (07/30/2024 6:35 AM EDT): [...] medical conditions and safety. - seen by semiconductor engineer in Dec 2023 after carotid US and echo, follow up in 1 year with semiconductor engineer Assessment & Plan (03/04/2024 5:05 PM EST): - left side CVA with right hemiparesis - continue risk factor management - most recent carotid US on 12/29/23 showed moderate b/l carotid stenosis, 16- 49%, stable. - ordered a hospital bed at home for treatment of his medical conditions and safety. - seen by semiconductor engineer in Dec 2023 after carotid US and echo, follow up in 1 year with semiconductor engineer Assessment & Plan (01/31/2024 6:15 AM EST): - left side CVA with right hemiparesis - continue risk factor management - most recent carotid US on 12/29/23 showed moderate b/l carotid stenosis, 16- 49%, stable. - ordered a hospital bed at home for treatment of his medical conditions and safety. - seen by semiconductor engineer in Dec 2023 after carotid US and echo, follow up in 1 year with semiconductor engineer Assessment & Plan (09/27/2023 6:12 AM EDT): - left side CVA with right hemiparesis - continue risk factor management - most recent carotid US on 09/13/22 showed moderate b/l carotid stenosis; will ask his semiconductor engineer to update US. - ordered a hospital [...] and safety. Dyslipidemia 01/09/2012 Assessment & Plan (10/31/2024 8:35 PM EDT): - Last lipid profile: 08/11/2024 - According to ACC/AHA guideline, high-intensity statin therapy is recommended. - Continue atorvastatin 40 mg qhs. Consider increasing to 80 mg qhs - Emphasized the importance of lifestyle modification. Assessment & Plan (07/30/2024 6:49 AM EDT): [...] of bed Hypertension 10/28/2011 Assessment & Plan (10/31/2024 8:34 PM EDT): - Goal BP < 130/80 per ACC/AHA guideline (Tx threshold [...] 2024, reminded about lab Assessment & Plan (07/30/2024 6:36 AM EDT): [...] Reduce sodium consumption. - Keep appointment with Reba HuberD, for CDTM. Assessment & Plan (07/29/2023 9:40 [...] Encounters Date Type Department Care Team Description 12/17/2024 Travel 12/14/2024 Refill [facility] [address] [place] [address] Marta Washington MD 11/01/2024 9:30 AM EDT Office Visit [facility] [address] [place] [address] Marta Washington MD Primary hypertension (Primary Dx); Dyslipidemia; Bilateral carotid artery stenosis; Nonrheumatic aortic valve stenosis; T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, with long-term current use of insulin (CMS/HCC); Lymphoma in remission ([facility]/HCC); Memory problem; History of stroke; Hemiparesis of right dominant side as late effect of cerebral infarction ([facility]/HCC); Obstructive sleep apnea syndrome 11/01/2024 Travel 10/29/2024 Telephone [facility] [address] [place] [address] Marta Washington MD chart prep 10/20/2024 Refill [facility] [address] [place] [address] Marta Washington MD 10/11/2024 Travel 09/29/2024 Refill [facility] [address] [place] [address] Marta Washington MD from Last 3 Months [...] housing situation today? I have rekha more 07/29/[address] you li [...] Sign Reading Time Taken Comments Blood Pressure 122/58 12/17/2024 9:15 AM EDT Pulse 74 12/17/2024 9:15 AM EDT Temperature 36 C (96.8 F) 11/01/2024 9:24 AM EDT Respiratory Rate 17 11/01/2024 9:24 AM EDT Oxygen Saturation 99% 11/01/2024 9:24 AM EDT Inhaled Oxygen Concentration - - Weight 104 kg (228 lb 9.6 oz) 11/01/2024 9:24 AM EDT Height 172.7 cm (5' 8 ) 11/01/2024 9:24 AM EDT Body Mass Index 34.76 11/01/2024 9:24 AM EDT Plan of Treatment Upcoming Encounters Date Type Department Care Team (Late st Contact Info) Description 02/02/2025 9:00 AM EST Office Visit [facility] [address] [place] [address] Marta Washington MD [address] [place] [address] 04/01/2025 9:00 AM EST Medication Management [facility] [address] [place] [phone] Tahir Siu, PharmD [address] [place] [address] Health Maintenance Due Date Last Done Comments Dental Oral Exam 05/25/2020 11/25/2019, 01/2017, 08/21/2016 Dental Prophylaxis 03/23/2022 09/20/2021 Dental X-Ray: Bitewings 09/21/2022 09/21/19 22, 11/25/2019, 08/21/2016 Dental X-Ray: Full Mouth 11/25/2022 020, 09/12/2017, 08/21/2016 Diabetes: Foot Exam 10/29/2024 10/30/2023, 10/30/2023, 10/30/2023, Additional history exists COVID-19 Vaccine (5 - Mixed Product risk season) 2024 03/03/2024, 02/05/2021, 06/01/2020, Additional history exists Influenza Vaccine (#1) 2024 , 12/09/2022, 02/21/2021, Additional history exists Diabetes: Hemoglobin A1C 02/01/2025 025, 07/29/2024, 05/11/2024, Additional history exists Depression Screening 07/29/2025 07/29/2024, 07/30/19 25 SDOH Screening 07/29/2025 07/29/2024 Diabetes: Urine Protein Screening 08/11/2025 08/11/2024, 09/24/2023, 01/21/2023, Additional history exists Lipid Panel 08/11/2025 08/11/2024, 07/05/2023, 01/21/2023, Additional history exists Alcohol/Substance Use Screening 11/01/2025 11/01/2024 Tobacco Screening 11/07/2025 11/07/2024 Eye Exam 04/01/2026 04/01/2024, 11/2024, 04/01/2024, Additional history exists DTaP/Tdap/Td Vaccines (3 - Td or Tdap) 07/28/2033 07/29/2023, 01/09/2012, 06/30/2009 Pneumococcal Vaccine: 50+ Years Completed 12/13/2014, 06/30/2009 Hepatitis B Vaccines Completed 03/13/2017, 08/23/2016, 07/22/2016 Zoster Vaccines Completed 03/04/2022, 12/22, 01/30/2017 RSV Patients and Patients Aged 60 years [...] 122/58(2024 9:15 AM EDT) No Tahir Siu, Tierney Hemoglobin A1c < 7 Result Component 8.7( 9:53 AM EDT) No Tahir Siu, Tierney Procedures Procedure Name Priority Date/Time Associated Diagnosis Comments POCT GLYCOSYLATED HEMOGLOBIN (HGB A1C) Routine 11/01/2024 9:53 AM EDT T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, with long-term current use of insulin ([facility]) POCT GLUCOSE Routine 11/01/2024 9:24 AM EDT T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, with long-term current use of insulin ([facility]) ALBUMIN, RANDOM URINE W/CREATININE Routine 08/11/2024 7:59 AM EDT T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, with long-term current use of insulin ([facility]) Primary hypertension LIPID PANEL WITH REFLEX TO DIRECT LDL Routine 08/11/2024 7:59 AM EDT Dyslipidemia PROPHYLAXIS - ADULT Routine 09/20/2021 1 2:00 AM EDT BITEWINGS - 3 RADIOGRAPHIC IMAGES Routine 09/20/2021 12:00 AM EDT INTRAORAL - COMPLETE SERIES OF RADIOGRAPHIC IMAGES Routine 11/25/2019 12:00 AM EDT PERIODIC ORAL EVALUATION - ESTABLISHED PATIENT Routine 11/25/2019 12:00 AM EDT from Last 3 Months or Most Recently Relevant to Health Maintenance Results * (ABNORMAL) POCT glycosylated hemoglobin (Hgb A1c) (11/01/2024 9:53 AM EDT) Hemoglobin A1C 8.7(A) 4.0 - 5.7 % QC Media Lot # [id number] Lot# Expiration Date [id number] Blood Capillary blood specimen / Unknown 11/01/2024 9:53 AM EDT us Marta Washington MD POINT OF CARE TEST ENTER/EDIT OR DERABLES Final Result * POCT glucose manually resulted (11/01/2024 9:24 AM EDT) Glucose Blood, POC 166 60 - 200 mg/dL QC Media Lot # [id number] Lot# Expiration Date [id number] Blood Capillary blood specimen / Unknown 11/01/2024 9:24 AM EDT us Marta Washington MD POINT OF CARE TEST ENTER/EDIT OR DERABLES Final Result * Lipid Panel with Reflex to Direct LDL (08/11/2024 7:59 AM EDT) Triglycerides 92 <150 mg/dL [facility] Comment:Desirable Triglyceri de: less than 150 mg/dLBorderline High Triglyceride 150-199 mg/dLHigh Triglyceride: 200-499 mg/dLVery High Triglyceride: greater than or equal to 5OO mg/dL Cholesterol 134 <200 mg/dL [facility] Comment:Desirable Cholestero l: less than 200 mg/dLBorderline High Cholesterol: 200-239 mg/dLHigh Cholesterol: greater than 239 mg/dL LDL Cholesterol Calculated 63 <100 mg/dL [facility] Comment:Desirable LDL: less than 100 mg/dLNear Optimal/Above Optimal LDL: 110- 129 mg/dLBorderline High LDL: 130-159 mg/dLHigh LDL: 160-189 mg/dLVery High LDL: greater than or equal to 190 mg/dL HDL Cholesterol 53 >40 mg/dL [facility] Comment:Desirable HDL: great er than 40 mg/dL Note: This HDL assay may give artificially low results in patients with liver disease. Blood 08/11/2024 7:59 AM EDT 08/11/2024 11:04 AM EDT Marta Washington MD LAB BLOOD ORDERABLES Final Resul t Performing Organization Address City/[facility] Co de Phone Number [facility] [address] [place] [phone] * Albumin, Random Urine W/Creatinine (08/11/2024 7:59 AM EDT) Creatinine, Urine 70.77 mg/dL [facility] Microalbumin Urine 12.0 mg/L [facility] Microalbum Creatinine Ratio Ur 16.9 <30 ug/mg cr [facility] Comment:Albumin/Creatinine R atio Reference Ranges: Normal: < 30 ug/mg creatinine Microalbuminuria: 30 - 300 ug/mg creatinineClinical Albuminuria: > 300 ug/mg creatinine Urine 08/11/2024 7:59 AM EDT 08/11/2024 10:59 AM EDT Marta Washington MD LAB URINE ORDERABLES Final Resul t Performing Organization Address City/[facility] Co de Phone Number [place] [address] [phone] from Last 3 Months or Most Recently Relevant to Health Maintenance Insurance [facility] RETIREMENT [employer] (HMO D-SNP) [facility] Care Teams Guitar Maker Relationship Specialty Start Date End Date Marta Washington MD [address] [place] [address] PCP - General Family Medicine 07/03/16 Tahir Siu, RebaD [address] [place] [address] Pharmacist Internal Medicine 11/11/22
--- OUTSIDE RECORDS SUMMARY | 2024-12-17 10:38 | XMS_ITS | Encounter Summary ---
Author Organization [employer] Address [address] [facility] 7t [place] [address] Care Team Providers Care Liner Installer Name Role Phone Marta Washington MD Primary Care Provider [phone] Tahir Siu PharmD Unavailable [phone] Encounter Details Date Type Department Care Team (Late st Contact Info) Description 04/15/2022 Orders Only [facility] [address] [place] [phone] Zeenat Torres LPN Social History Tobacco Use [...] Description 02/02/2025 9:00 AM EST Office Visit [facility] [address] [place] [address] [phone] Marta Washington MD [address] [place] [address] [phone] 04/01/2025 9:00 AM EST Medication Management [facility] [address] [place] [address] [phone] Tahir Siu, PharmD [address] [place], [place] [phone] documented as of this encounter Visit Diagnoses Not on filedocumented in this encounter Care Teams Liner Installer Relationship Specialty Start Date End Date Marta Washington MD [address] [place] [phone] PCP - General Family Medicine 07/03/16 Tahir Siu, RebaD [address] [place] [phone] Pharmacist Internal Medicine 11/11/22 documented as of this encounter
--- OUTSIDE RECORDS SUMMARY | 2024-12-17 10:38 | XMS_ITS | Encounter Summary ---
Author Organization [employer] Address 75 [facility] 7 [place] [address] Care Team Providers Care Sample Tester Grinder Name Role Phone Marta Washington MD Primary Care Provider [phone] Tahir Siu PharmD Unavailable [phone] Reason for Referral * Consultation (Routine) - Closed Specialty Diagnoses / Procedures Referred By Isreal lim Referred To Contact Memory Care Diagnoses Cognitive impairment Marta Washington MD [address] [place] [address] Phone: tel: fax: [facility] [address] [facility] [address] [place] [address] Phone: tel: fax: Referral ID Status Reason Start Date Expiration Date V isits Requested Visits Authorized [id number] Closed Specialty Services Required 05/28/2024 05/28/2025 1 1 Encounter Details Date Type Department Care Team (Late st Contact Info) Description 05/28/2024 Orders Only [facility] [address] [place] [address] Marta Washington MD [address] [place] [address] Cognitive impairment (Primary Dx); Lymphoma in remission; [...] Description 02/02/2025 9:00 AM EST Office Visit [facility] [address] [place] [address] Marta Washington MD [address] [place] [address] 04/01/2025 9:00 AM EST Medication Management [facility] [address] [place] [address] Tahir Siu PharmD [address] [place] [address] Scheduled Referrals Name Type Priority Associated Diagnoses [...] to conditions classified elsewhere 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, unspecified site, extranodal and solid organ sites Anemia, unspecified type Mass of left side of neck Lymphadenopathy of left cervical region documented in this encounter Additional Health Concerns Assessment Noted Time PHQ-9 Depression Total Score: 3 07/29/19 24 9:26 AM EDT documented as of this encounter Care Teams Sample Tester Grinder Relationship Specialty Start Date End Date Marta Washington MD [address] [place] [phone] PCP - General Family Medicine 07/03/16 Tahir Siu PharmD [address] [place] [phone] Pharmacist Internal Medicine 11/11/22 documented as of this encounter
--- OUTSIDE RECORDS SUMMARY | 2024-12-17 10:38 | XMS_ITS | Encounter Summary ---
Author Organization [employer] Address 75 [facility] 7t [place] [address] Care Team Providers Care Debit Agent Name Role Phone Marta Washington MD Primary Care Provider Tahir Siu PharmD Unavailable [phone] Reason for Visit * Reason Comments Med Refill Encounter Details Date Type Department Care Team (Late st Contact Info) Description 09/02/2022 Refill [facility] [address] [place] [address] Marta Washington MD [address] [place] [phone] Type 2 diabetes mellitus without complication, with long-term current use of insulin ([facility]); History of stroke Social History Tobacco Use [...] Department Care Team (Late Contact Info) Description 02/02/2025 9:00 AM EST Office Visit [facility] MED[facility]INE [address] [place], [place] [address], [place] [address] Marta Washington MD [facility] [place] [address] 04/01/2025 9:00 AM EST Medication Management [facility] MED[facility]INE [address] [place] [address] [place] [address] Tahir Siu, Tireney Mike [facility] [place] [address] documented as of this encounter Visit Diagnoses Diagnosis Type 2 diabetes mellitus without complication, with long-term current use of insulin ([facility]) History of stroke Transient ischemic attack (TIA), and cerebral infarction without residual deficits documented in this encounter Additional Health Concerns Assessment Noted Time PHQ-9 Depression Total Score: 0 04/22/19 23 10:14 AM EST documented as of this encounter Care Teams Debit Agent Relationship Specialty Start Date End Date Marta Washington MD Mike [facility] [place] [address] PCP - General Family Medicine 07/03/16 Tahir Siu, Tierney [address] [place] [address] [phone] Pharmacist Internal Medicine 11/11/22 documented as of this encounter
--- OUTSIDE RECORDS SUMMARY | 2024-12-17 10:38 | XMS_ITS | Encounter Summary ---
Author Organization [employer] Address 75 [facility] 7t [place] [address] Care Team Providers Care Power Shear Operator Name Role Phone Marta Washington MD Primary Care Provider [phone] Tahir Siu PharmD Unavailable [phone] Reason for Visit * Reason Comments Med Refill Encounter Details Date Type Department Care Team (Late st Contact Info) Description 12/14/2024 Refill [facility] [address] [place], [place] [phone] Marta Washington MD [address] [place], [place] [phone] Social History Tobacco Use Types Packs/Day Years [...] the past 12 months, has t he [employer], gas, oil or water [employer] threatened to shut off services in your [...] Description 02/02/2025 9:00 AM EST Office Visit [facility] [address] [place] [phone] Marta Washington MD [address] [place] [phone] 04/01/2025 9:00 AM EST Medication Management [facility] [address] [place] [phone] Tahir Siu, RebaD [address] [place] [phone] documented as of this encounter Goals Goal Patient Goal Type Associated Problems Recent Progress Patient-Stated? Author Blood Pressure < 140/90 Blood Pressure 122/58(2024 9:15 AM EDT) No Tahir Siu, PharmRupa Hemoglobin A1c < 7 Result Component 8.7( 9:53 AM EDT) No Tahir Siu, PharmD documented as of this encounter Visit Diagnoses Not on filedocumented in this encounter Additional Health Concerns Assessment Noted Time PHQ-9 Depression Total Score: 0 07/30/19 25 9:01 AM EDT documented as of this encounter Care Teams Power Shear Operator Relationship Specialty Start Date End Date Marta Washington MD [address] [place] [address] PCP - General Family Medicine 07/03/16 Tahir Siu, PharmD [address] [place] [address] Pharmacist Internal Medicine 11/11/22 documented as of this encounter
--- OUTSIDE RECORDS SUMMARY | 2024-12-17 10:38 | XMS_ITS | Encounter Summary ---
Author Organization [employer] Address [address] [facility] [address] 7[address] [place] [address] Care Team Providers Care Skills Auditor Name Role Phone Marta Washington MD Primary Care Provider [phone] Tahir Siu PharmD Unavailable [phone] Encounter Details Date Type Department Care Team (Late st Contact Info) Description 08/05/2024 Orders Only [facility] [address] [place], [place] [phone] Marta Washington MD [address] [place], [place] [phone] T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, with long-term current use of insulin ([facility]) (Primary Dx) Social History Tobacco Use Types [...] Description 02/02/2025 9:00 AM EST Office Visit [facility] [address] [place] [phone] Marta Washington MD [address] [place] [address] 04/01/2025 9:00 AM EST Medication Management [facility] [address] [place] [phone] Tahir Siu PharmD [address] [place] [phone] documented as of this encounter Goals Goal Patient Goal Type Associated Problems Recent Progress Patient-Stated? Author Blood Pressure < 140/90 Blood Pressure 122/58(2024 9:15 AM EDT) No Tahir Siu, Tierney Hemoglobin A1c < 7 Result Component 8.7( 5 9:53 AM EDT) No Tahir Siu, PharmD documented as of this encounter Visit Diagnoses Diagnosis T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, with long-term current use of insulin ([facility])- Primary documented in this encounter Additional Health Concerns Assessment Noted Time PHQ-9 Depression Total Score: 0 07/30/19 25 9:01 AM EDT documented as of this encounter Care Teams Skills Auditor Relationship Specialty Start Date End Date Marta Washington MD [address] [place] [address] PCP - General Family Medicine 07/03/16 Tahir Siu, PharmD [address] [place] [address] Pharmacist Internal Medicine 11/11/22 documented as of this encounter
[2024-12-17 11:26] LABS: MANUAL DIFF FLAG NO
[2024-12-17 11:37] LABS: Hematocrit 39.6 % (42.0-52.0); Hemoglobin 13.1 g/dl (14.0-18.0); Imm Gran Abs Auto 0.04 X10*3/uL (0.00-0.03); Imm Gran Pct Auto 0.6 % (0.0-0.4); Lymphocytes Absolute Auto 1.8 X10*3/uL (1.2-4.9); Mean Corpuscular HGB Conc 33.1 g/dl (31.0-36.0); Mean Corpuscular Hemoglobin 31.0 pg (27.0-33.0); Mean Corpuscular Volume 93.8 fL (80.0-98.0); NRBC Abs Auto 0.000 X10*3/uL (0.0-0.012); NRBC Pct Auto 0.0 /100WBC (0.0-0.2); Platelet Count 216 X10*3/uL (160-400); Red Blood Count 4.22 X10*6/uL (4.60-5.80); White Blood Count 6.8 X10*3/uL (4.8-10.8)
[2024-12-17 12:01] LABS: Alanine Aminotransferase 40 U/L (0-40); Albumin Level 4.2 g/dL (3.5-5.0); Alkaline Phosphatase 145 U/L (39-117); Anion Gap 10 (12-20); Aspartate Amino Transferase 33 U/L (5-37); Blood Urea Nitrogen 21 mg/dL (9-16); Calcium 9.4 mg/dL (8.4-10.2); Carbon Dioxide 28 mmol/L (22-29); Chloride 109 mmol/L (96-108); Estimated Glomerular Filt Rate 60; Potassium 4.2 mmol/L (3.3-5.1); Sodium 143 mmol/L (135-145); Total Protein 7.5 g/dL (6.5-8.0)
== END 2024-12-17 09:39 | disposition home or self-care (01) ==
LOC: HO.HHCL 09:38
PROVIDERS: PCP Family Medicine; Visit Provider Family Medicine
DX: I10 Essential (primary) hypertension (principal); C85.9A Non-Hodgkin lymphoma, unspecified, in remission; E11.59 Type 2 diabetes mellitus with other circulatory complications; Z79.4 Long term (current) use of insulin
CPT/HCPCS: 36415; 80053; 82985; 85025

== ENCOUNTER 2025-01-28 21:50 | Emergency (ER) | payer OTHER, SELFPAY ==
--- NOTE | 2025-01-28 | ECG_ITS ---
Test Reason : WEAKNESS Blood Pressure : */* mmHG Vent. Rate : 73 BPM Atrial Rate : 73 BPM P-R Int : 136 ms QRS Dur : 128 ms QT Int : 438 ms P-R-T Axes : 47 -34 16 degrees QTcB Int : 482 ms Normal sinus rhythm Left axis deviation Non-specific intra-ventricular conduction block Minimal voltage criteria for LVH, may be normal variant ( Farhan product ) Abnormal ECG When compared with ECG of 19-Dec-2010 03:11, QRS duration has increased Criteria for Septal infarct are no longer Present Referred By: Candida Dubois Electronically Signed By: Naeem Brantley
--- NOTE | ~2025-01-28 | XR_ITS ---
CLINICAL HISTORY: weakness 1 view chest x-ray Comparison: None provided Findings: The lungs are clear. Heart size is normal. No acute fracture. IMPRESSION: 1. No acute findings. This document has been electronically signed by: Itz Nixon MD on 01/28/2025 22:58:43
--- NOTE | ~2025-01-28 | CT_ITS ---
CLINICAL HISTORY: slurred speech, AMS CT head without contrast Comparison: MR/SR - MR BRAIN WITHOUT IV CONTRAST - 02/07/24 18:39 EST Findings: BRAIN: No acute infarct, hemorrhage, or mass effect. Remote infarct of the left gan radiata. CSF SPACES: No hydrocephalus or effacement of basal cisterns. SKULL: No calvarial fracture. SINUSES: No significant mucosal thickening or effusion on limited views. ORBITS: Limited views are unremarkable. OTHER: Negative. IMPRESSION: 1. No acute intracranial findings. This document has been electronically signed by: Steffi Schwarz MD on 01/28/2025 22:44:31
--- NOTE | ~2025-01-28 | CT_ITS ---
CLINICAL HISTORY: hypoxia, cough, sepsis CT chest without contrast Comparison: None provided Findings: NECK BASE: Limited views of the thyroid are unremarkable. LUNGS/PLEURA: Mild bibasilar atelectasis. Mild bronchial wall thickening the bases. PULM VASCULAR: Poorly evaluated without IV contrast. MEDIASTINUM: No masses or lymphadenopathy. CARDIAC: No pericardial effusion. No cardiomegaly. Coronary artery calcifications. AORTA: No aneurysm. CHEST WALL: No masses or axillary lymphadenopathy. LIMITED ABDOMEN: Limited views are unremarkable. BONES: No acute fracture. IMPRESSION: 1. Mild bronchial wall thickening at the lung bases may represent inflammatory airway disease. No consolidation or pneumonia. This document has been electronically signed by: Steffi Schwarz MD on 01/29/2025 01:46:11
[2025-01-28 22:03] VITALS: BP 121/40; BP 200/80; PULSE 70; PULSE 80; RESP 13; TEMP 35.3; O2SAT 95; BMI 34.9
--- NOTE | 2025-01-28 22:05 | ED.WEAKNESS ---
HPI - Weakness General Chief complaint: Weakness Stated complaint: Lethargic pale & sweaty LKW 1hr. BP189/90 Time Seen by Provider: 01/28/25 22:04 Source: patient, family, EMS and old records reviewed Mode of arrival: EMS Limitations: altered mental status History of Present Illness ED Provider: ISMA MOSES Narrative: 84-year-old male with past medical history of diabetes on metformin 1000 b.i.d, NovoLog 60 units subQ with meals), CVA with left-sided hemiparesis, obesity, BOBBY, follicular lymphoma, hyperlipidemia, hypertension, venous insufficiency who just was diagnosed with early-onset dementia. He is still administers his medications including insulin, currently we do not have an active med list. He was playing bingo with his as they both still live at home together and he suddenly became pale sweaty and confused. He recently had a close friend and he has been depressed and not eating. He did not eat well today but did take a dose of nighttime insulin although it is unclear exactly what dose he took as he self administers it. His check a blood sugar in it was 134, EMS checked the blood sugar it was 81, on arrival to the ED blood sugar was 45 - he was immediately given IV dextrose. The family denies any recent trauma, infection, but do note he has not been eating or drinking well for the last 2 days. I did ask if there is any concern for attempt at self-harm and they deny any concerns. It took him about 30 minutes to improve and wake up after IV dextrose. Patient did bring in Lantus and Humalog pens but is unclear what he dosed MD Complaint: generalized weakness and lack of energy Onset (ago): hour(s) (One) Duration: improved Location: generalized Migration: none Severity: moderate Relieving factors: none Exacerbating factors: none Context: depression Associated symptoms: loss of appetite Related Data Home Medications ?Medication ?Instructions ?Recorded ?Confirmed ascorbic acid (vitamin C) 500 mg 500 mg PO BID 10/10/20 tablet aspirin 81 mg tablet,delayed 81 mg PO DAILY 10/10/20 release atorvastatin 40 mg tablet 40 mg PO BEDTIME 10/10/20 blood sugar diagnostic #10 ea 10/10/20 cyanocobalamin (vitamin B-12) 1,000 mcg PO DAILY 10/10/20 1,000 mcg tablet,extended release docusate sodium 100 mg capsule 100 mg PO 10/10/20 empagliflozin 10 mg tablet 10 mg PO QAM 10/10/20 ferrous sulfate 325 mg (65 mg 325 mg PO BID 10/10/20 iron) tablet furosemide 20 mg tablet 20 mg PO QAM 10/10/20 insulin aspart U-100 100 unit/mL unit subcut 10/10/20 (3 mL) subcutaneous pen insulin glargine 100 unit/mL (3 33 unit subcut QPM 10/10/20 mL) subcutaneous pen losartan 100 mg tablet 100 mg PO DAILY 10/10/20 metformin 1,000 mg tablet 1,000 mg PO BID 10/10/20 pantoprazole 20 mg tablet,delayed 20 mg PO DAILY 10/10/20 release Previous Rx's ?Medication ?Instructions ?Recorded bisacodyl 5 mg tablet,delayed 10 mg (2 x 5 mg) PO BEDTIME 2 days 10/10/20 release (Dulcolax (bisacodyl)) #4 tabs peg 3350-electrolytes 236 240 ml PO Q10M 1 day #4,000 mL 10/10/20 gram-22.74 gram-6.74 gram-5.86 gram solution (Golytely) cefuroxime axetil 250 mg tablet 250 mg PO BID 5 days #10 tabs 01/29/25 Allergies Allergy/AdvReac Type Severity Reaction Status Date / Time No Known Allergies Allergy Verified 01/28/25 22:13 Review of Systems Review of Systems: ROS unable to be obtained due to altered mental status PMFSH Past Medical History Medical History (Updated 01/29/25 @ 04:35 by Juice Spencer MD) Corneal intraepithelial neoplasia Surgical History (Updated 12/03/21 @ 13:54 by ASHLEY Campa) S/P cataract extraction H/O inguinal hernia repair History of esophagogastroduodenoscopy (EGD) H/O colonoscopy Social History Social History Smoked in Last 30 Days: No Use of substances other than those prescribed or required for medical reasons: No Advance Directives: No Advance Directives Information Provided: No Physical Exam Vital Signs: Vital Signs: Last Vital Signs Temp 98.8 F 01/29/25 03:50 Pulse 90 01/29/25 03:50 Resp 28 H 01/29/25 03:50 BP 114/59 L 01/29/25 03:50 Pulse Ox 94 01/29/25 03:50 O2 Del Method Room Air 01/29/25 03:50 O2 Flow Rate 2 01/29/25 01:23 BMI result Body Mass Index 34.9 Appearance: Alert. Oriented X2. Mild acute distress. Eyes: Pupils equal, round and reactive to light. 2 mm ENT: Pharynx normal. Neck: Normal inspection. Neck supple. CVS: Normal heart rate and rhythm. Pulses normal. Respiratory: No respiratory distress. Breath sounds normal. Abdomen: Soft and nontender. Skin: Skin warm and clammy. Pale skin color. Normal skin turgor. Extremities: No lower extremity edema. No calf ttp Neuro: Oriented X 2 (initially unaware he was in the hospital). Still has mild left sided hemiparesis, mild confusion, mild dysarthria. No sensory deficit. CN2-12 intact NIH Stroke Scale Internal: Initial- Upon Arrival Level of Consciousness: Not Alert; but arousable by minor stimulation (At this time blood sugar was 45) Level of Consciousness Questions: Answers one question correctly Level of Consciousness Commands: Performs both tasks correctly Best Gaze: Normal Visual: No visual loss Facial Palsy: Normal Motor Arm (Right): No drift Motor Arm (Left): No drift (Mild this is baseline) Motor Leg (Right): No drift Motor Leg (Left): No drift Limb Ataxia: Absent Sensory: Normal Best Language: No aphasia Dysarthia: Mild to moderate dysarthria Extinction and Inattention: No abnormality Score: 3 Course Course Course Narrative: 11:05 PM 01/28/2025 (ISMA RAVI): Blood sugar dropped again to 85, at this point I will be putting on IV dextrose drip 11:41 PM 01/28/2025 (ISMA RAVI): Currently on dextrose drip but again appears sleepy will repeat blood sugar it did result again in the 60s, I did increase his D10 to 75 per hour will monitor closely D-dimer is negative, he is on 75 mL/hour of D10 at this time. 01:00 AM 01/29/2025 (ISMA RAVI): Sign-out to Dr. Spencer pending CT scan of chest for possible pneumonia, repeat troponin, disposition. Anticipate admission to the hospital Reevaluation(s) Reevaluation #1: Krchapo: The patient was signed out to me at change of shift. The patient is an 84-year-old male who had presented to the emergency department with the an altered mental status and who was also found to be hypoglycemic. The patient is an 84-year-old male who lives with his . He is a type 2 diabetic on insulin. He uses Humalog and Lantus. Apparently the family feels that he may have some early dementia. Nevertheless he has been looking after his own insulin dosing. He apparently has been using some kind of a wearable glucose monitor but the family feels this monitor is not functioning properly. In any event the patient arrived with the an altered mental status and hypoglycemia and was also hypothermic. He has a apparently been sad for the last 2 days following the of a friend. Prior to my assuming care of the patient the patient has been placed on IV glucose as he was not taking oral intake well and he has a decreased level of alertness. He was also placed on a warming blanket. Because of a temperature of 95.5 degrees. Additional testing included an undetectable D-dimer, a noncontrast chest CT that showed no definite pneumonia, a normal white blood count of 7.1 with a slight left shift of 76.5 neutrophils, and a lactic acid level of 2.4, a potassium of 3.1, a CRP of 0.17, and flat troponins. Normal TSH. In some the patient's medical workup was largely unremarkable aside from hypoglycemia with the lowest measured blood sugar being 46. The patient also had a negative head CT. The patient has been given empiric antibiotics with a dose of ceftriaxone. The patient's urinalysis is potentially consistent with a UTI. Apparently initially the patient had had a fairly diminished level of alertness. By the time I evaluated the patient he was more alert. He was sufficiently alert ultimately that I felt he could take oral intake. He was given at 1st timur myriam and crackers and later a sandwich. He tolerated all this oral intake. Ultimately we were able to take the patient off IV glucose. We continued to observe him. His level of alertness improved dramatically. He was quite animated in his family felt that he was back to normal. Overall I do not feel there is an indication for hospitalization at this point. I suspect that the patient may have been hypoglycemic from either some accidental misuse of insulin or perhaps simply from decreased oral intake over the last 2 days when the patient has been feeling sad. Ultimately the patient was very eager to go home. His family seems comfortable taking him home. His agrees to help supervise his insulin and his son will also help. They are advised to follow up promptly with his regular doctor or return to the ER if worse. Time: 05:21 Medications Administered Generic Name Dose Route Start Last Admin Trade Name Freq PRN Reason Stop Dose Admin Dextrose 1,000 mls @ 75 mls/hr 01/28/25 23:15 01/29/25 02:50 D10 IVCONT Infused .[id number] GABY Infusion Sodium Chloride 1,000 mls @ 50 mls/hr 01/29/25 00:15 01/29/25 00:23 Ns IVCONT 50 mls/hr .Q20H GABY Administration Discontinued Medications Generic Name Dose Route Start Last Admin Trade Name Freq PRN Reason Stop Dose Admin Dextrose 25 gm 01/28/25 22:06 01/28/25 22:00 Dextrose 50 % 25 Gm/50 Ml Syringe IVPUSH 01/28/25 22:07 25 gm ONCE ONE Administration Lactated Ringer's 500 mls @ 999 mls/hr 01/28/25 22:30 01/29/25 00:53 Lr IV 01/28/25 23:00 Infused .Q31M GABY Infusion Ceftriaxone Sodium 1 gm/ 50 mls @ 100 mls/hr 01/28/25 22:23 01/28/25 23:25 Sodium Chloride IV 01/28/25 22:52 Infused ONCE ONE Infusion Potassium Chloride 10 meq in 100 mls @ 100 mls/hr 01/29/25 00:15 01/29/25 04:24 Potassium Chloride/H20 IV 01/29/25 04:14 100 mls/hr Q1H GABY Administration Medical Decision Making Medical Decision Making MDM Narrative: 84-year-old male with past medical history of diabetes on metformin 1000 b.i.d, NovoLog 60 units subQ with meals), CVA with left-sided hemiparesis, obesity, BOBBY, follicular lymphoma, hyperlipidemia, hypertension, venous insufficiency who is here with altered mental status and dropping blood sugar on arrival blood sugar 45 with dysarthria, confusion, weakness. He was given IV dextrose blood sugar went up to 110 we are monitoring blood sugar every 20 minutes, his core temp was 95.5 degrees without exposure. At this time given his symptoms I am going to obtain a stat head CT to rule out intracranial hemorrhage/abnormality. I am going to start on sepsis protocol given hypoglycemia and hypothermia insert and a empiric ceftriaxone. He is improving after blood sugar is more awake and speech is improving. I do believe his NIH score of 2 was due to hypoglycemia, given the improvement with dextrose he is not a candidate for TNK Differential Diagnosis Differential Diagnoses: The differential diagnosis associated with the presentation includes Hypoglycemia, infection, NIH score is 2 due to altered mental status and mild dysarthria but in setting of blood sugar of 45 and improving with IV dextrose I do not think TNK is indicated at this time and I see no other obvious deficits, JUSTIN, side effect of insulin, poor p.o. intake Admission/Observation Consideration of admission/observation: Escalation of care including admission/observation considered Lab Data MDM Lab Attestation statement: I reviewed the patient's lab results. Noted for hypoglycemia, hypokalemia, lactic acidosis 01/28/25 22:59 01/28/25 22:58 Labs: Lab Results 01/28/25 01/28/25 01/28/25 Range/Units 21:59 22:12 22:22 WBC (4.8-10.8) X10*3/uL RBC (4.60-5.80) X10*6/uL Hgb (14.0-18.0) g/dl Hct (42.0-52.0) % MCV (80.0-98.0) fL MCH (27.0-33.0) pg MCHC (31.0-36.0) g/dl RDW (11.0-16.0) % Plt Count (160-400) X10*3/uL MPV (9.4-12.4) fL Immature Gran % (Auto) (0.0-0.4) % Neut % (Auto) (45-73) % Lymph % (Auto) (20-40) % [place] % (Auto) (2-11) % Eos % (Auto) (0-4) % Baso % (Auto) (0-2) % Lymph # (Auto) (1.2-4.9) X10*3/uL [place] # (Auto) (0.1-1.2) X10*3/uL Eos # (Auto) (0.0-0.4) X10*3/uL Baso # (Auto) (0.0-0.2) X10*3/uL Abs Immat Gran (auto) (0.00-0.03) X10*3/uL Absolute Neuts (auto) (2.0-8.3) x10*3/uL Absolute Nucleated RBC (0.0-0.012) X10*3/uL Nucleated RBC % (auto) (0.0-0.2) /100WBC Whole Blood PT 12.0 (11.1-13.5) sec Whole Blood INR 1.0 (0.9-1.1) D-Dimer High Sensitivty NG/ML VBG pH (7.32-7.43) VBG pCO2 mmHg VBG pO2 mmHg VBG HCO3 (22-26) mmol/L VBG O2 Saturation % VBG Base Excess mmol/L Sodium (135-145) mmol/L Potassium (3.3-5.1) mmol/L Chloride (96-108) mmol/L Carbon Dioxide (22-29) mmol/L Anion Gap (12-20) BUN (9-16) mg/dL Creatinine (0.5-1.4) mg/dL Estim Creat Clear Calc Estimated GFR POC Glucose 46 L* 188 H (60-115) mg/dL Random Glucose (60-115) mg/dL Lactic Acid (0.5-2.0) mmol/L Lactic Acid F/U @ 2Hr (0.5-2.0) mmol/L Calcium (8.4-10.2) mg/dL Magnesium (1.6-2.6) mg/dL Total Bilirubin (0.0-1.0) mg/dL Direct Bilirubin (0.0-0.5) mg/dL AST (5-37) U/L ALT (0-40) U/L Alkaline Phosphatase (39-117) U/L Total Creatine Kinase (38-174) U/L Troponin I High Sens (<3.5-35.0) ng/L C-Reactive Protein (< or = 0.50) mg/dL Total Protein (6.5-8.0) g/dL Albumin (3.5-5.0) g/dL Lipase (8-78) U/L TSH (0.32-4.0) uIU/mL Urine Color Urine Appearance Urine pH (5.0-9.0) Ur Specific [place] (1.005-1.025) Urine Protein (Neg-Trace) mg/dL Urine Glucose (UA) (Negative) mg/dL Urine Ketones (Negative) mg/dL Urine Blood (Negative) Urine Nitrite (Negative) Ur Leukocyte Esterase (Negative) Urine RBC (0-2) /HPF Urine WBC (0-5) /HPF Ur Squamous Epith Cells (0-2) /HPF Urine Bacteria (None Seen) Hyaline Casts (0-2) /LPF Ethyl Alcohol mg/dL Influenza Type A (PCR) (Negative) Influenza Type B (PCR) (Negative) RSV RNA Qual (PCR) (Negative) SARS-CoV-2 RNA (RT-PCR) (Negative) 01/28/25 01/28/25 01/28/25 Range/Units 22:38 22:58 22:59 WBC 7.1 (4.8-10.8) X10*3/uL RBC 4.13 L (4.60-5.80) X10*6/uL Hgb 12.8 L (14.0-18.0) g/dl Hct 38.6 L (42.0-52.0) % MCV 93.5 (80.0-98.0) fL MCH 31.0 (27.0-33.0) pg MCHC 33.2 (31.0-36.0) g/dl RDW 14.0 (11.0-16.0) % Plt Count 181 (160-400) X10*3/uL MPV 9.4 (9.4-12.4) fL Immature Gran % (Auto) 0.4 (0.0-0.4) % Neut % (Auto) 76.5 H (45-73) % Lymph % (Auto) 12.7 L (20-40) % [place] % (Auto) 8.7 (2-11) % Eos % (Auto) 1.3 (0-4) % Baso % (Auto) 0.4 (0-2) % Lymph # (Auto) 0.9 L (1.2-4.9) X10*3/uL [place] # (Auto) 0.6 (0.1-1.2) X10*3/uL Eos # (Auto) 0.1 (0.0-0.4) X10*3/uL Baso # (Auto) 0.0 (0.0-0.2) X10*3/uL Abs Immat Gran (auto) 0.03 (0.00-0.03) X10*3/uL Absolute Neuts (auto) 5.4 (2.0-8.3) x10*3/uL Absolute Nucleated RBC 0.000 (0.0-0.012) X10*3/uL Nucleated RBC % (auto) 0.0 (0.0-0.2) /100WBC Whole Blood PT (11.1-13.5) sec Whole Blood INR (0.9-1.1) D-Dimer High Sensitivty NG/ML VBG pH (7.32-7.43) VBG pCO2 mmHg VBG pO2 mmHg VBG HCO3 (22-26) mmol/L VBG O2 Saturation % VBG Base Excess mmol/L Sodium 142 (135-145) mmol/L Potassium 3.1 L D (3.3-5.1) mmol/L Chloride 109 H (96-108) mmol/L Carbon Dioxide 24 (22-29) mmol/L Anion Gap 12 (12-20) BUN 25 H (9-16) mg/dL Creatinine 1.03 (0.5-1.4) mg/dL Estim Creat Clear Calc 62.4 Estimated GFR > 60 POC Glucose 111 (60-115) mg/dL Random Glucose 80 (60-115) mg/dL Lactic Acid 2.4 H* (0.5-2.0) mmol/L Lactic Acid F/U @ 2Hr (0.5-2.0) mmol/L Calcium 9.3 (8.4-10.2) mg/dL Magnesium 2.1 (1.6-2.6) mg/dL Total Bilirubin 0.2 (0.0-1.0) mg/dL Direct Bilirubin < 0.2 (0.0-0.5) mg/dL AST 42 H (5-37) U/L ALT 33 (0-40) U/L Alkaline Phosphatase 108 (39-117) U/L Total Creatine Kinase 225 H (38-174) U/L Troponin I High Sens 70.9 H (<3.5-35.0) ng/L C-Reactive Protein 0.17 (< or = 0.50) mg/dL Total Protein 7.3 (6.5-8.0) g/dL Albumin 4.2 (3.5-5.0) g/dL Lipase 70 (8-78) U/L TSH 2.15 (0.32-4.0) uIU/mL Urine Color Urine Appearance Urine pH (5.0-9.0) Ur Specific [place] (1.005-1.025) Urine Protein (Neg-Trace) mg/dL Urine Glucose (UA) (Negative) mg/dL Urine Ketones (Negative) mg/dL Urine Blood (Negative) Urine Nitrite (Negative) Ur Leukocyte Esterase (Negative) Urine RBC (0-2) /HPF Urine WBC (0-5) /HPF Ur Squamous Epith Cells (0-2) /HPF Urine Bacteria (None Seen) Hyaline Casts (0-2) /LPF Ethyl Alcohol < 10 mg/dL Influenza Type A (PCR) NEGATIVE (Negative) Influenza Type B (PCR) NEGATIVE (Negative) RSV RNA Qual (PCR) NEGATIVE (Negative) SARS-CoV-2 RNA (RT-PCR) NEGATIVE (Negative) 01/28/25 01/28/25 01/28/25 Range/Units 23:04 23:19 23:43 WBC (4.8-10.8) X10*3/uL RBC (4.60-5.80) X10*6/uL Hgb (14.0-18.0) g/dl Hct (42.0-52.0) % MCV (80.0-98.0) fL MCH (27.0-33.0) pg MCHC (31.0-36.0) g/dl RDW (11.0-16.0) % Plt Count (160-400) X10*3/uL MPV (9.4-12.4) fL Immature Gran % (Auto) (0.0-0.4) % Neut % (Auto) (45-73) % Lymph % (Auto) (20-40) % [place] % (Auto) (2-11) % Eos % (Auto) (0-4) % Baso % (Auto) (0-2) % Lymph # (Auto) (1.2-4.9) X10*3/uL [place] # (Auto) (0.1-1.2) X10*3/uL Eos # (Auto) (0.0-0.4) X10*3/uL Baso # (Auto) (0.0-0.2) X10*3/uL Abs Immat Gran (auto) (0.00-0.03) X10*3/uL Absolute Neuts (auto) (2.0-8.3) x10*3/uL Absolute Nucleated RBC (0.0-0.012) X10*3/uL Nucleated RBC % (auto) (0.0-0.2) /100WBC Whole Blood PT (11.1-13.5) sec Whole Blood INR (0.9-1.1) D-Dimer High Sensitivty NG/ML VBG pH (7.32-7.43) VBG pCO2 mmHg VBG pO2 mmHg VBG HCO3 (22-26) mmol/L VBG O2 Saturation % VBG Base Excess mmol/L Sodium (135-145) mmol/L Potassium (3.3-5.1) mmol/L Chloride (96-108) mmol/L Carbon Dioxide (22-29) mmol/L Anion Gap (12-20) BUN (9-16) mg/dL Creatinine (0.5-1.4) mg/dL Estim Creat Clear Calc Estimated GFR POC Glucose 85 67 68 (60-115) mg/dL Random Glucose (60-115) mg/dL Lactic Acid (0.5-2.0) mmol/L Lactic Acid F/U @ 2Hr (0.5-2.0) mmol/L Calcium (8.4-10.2) mg/dL Magnesium (1.6-2.6) mg/dL Total Bilirubin (0.0-1.0) mg/dL Direct Bilirubin (0.0-0.5) mg/dL AST (5-37) U/L ALT (0-40) U/L Alkaline Phosphatase (39-117) U/L Total Creatine Kinase (38-174) U/L Troponin I High Sens (<3.5-35.0) ng/L C-Reactive Protein (< or = 0.50) mg/dL Total Protein (6.5-8.0) g/dL Albumin (3.5-5.0) g/dL Lipase (8-78) U/L TSH (0.32-4.0) uIU/mL Urine Color Urine Appearance Urine pH (5.0-9.0) Ur Specific [place] (1.005-1.025) Urine Protein (Neg-Trace) mg/dL Urine Glucose (UA) (Negative) mg/dL Urine Ketones (Negative) mg/dL Urine Blood (Negative) Urine Nitrite (Negative) Ur Leukocyte Esterase (Negative) Urine RBC (0-2) /HPF Urine WBC (0-5) /HPF Ur Squamous Epith Cells (0-2) /HPF Urine Bacteria (None Seen) Hyaline Casts (0-2) /LPF Ethyl Alcohol mg/dL Influenza Type A (PCR) (Negative) Influenza Type B (PCR) (Negative) RSV RNA Qual (PCR) (Negative) SARS-CoV-2 RNA (RT-PCR) (Negative) 01/28/25 01/28/25 01/29/25 Range/Units 23:54 23:58 00:02 WBC (4.8-10.8) X10*3/uL RBC (4.60-5.80) X10*6/uL Hgb (14.0-18.0) g/dl Hct (42.0-52.0) % MCV (80.0-98.0) fL MCH (27.0-33.0) pg MCHC (31.0-36.0) g/dl RDW (11.0-16.0) % Plt Count (160-400) X10*3/uL MPV (9.4-12.4) fL Immature Gran % (Auto) (0.0-0.4) % Neut % (Auto) (45-73) % Lymph % (Auto) (20-40) % [place] % (Auto) (2-11) % Eos % (Auto) (0-4) % Baso % (Auto) (0-2) % Lymph # (Auto) (1.2-4.9) X10*3/uL [place] # (Auto) (0.1-1.2) X10*3/uL Eos # (Auto) (0.0-0.4) X10*3/uL Baso # (Auto) (0.0-0.2) X10*3/uL Abs Immat Gran (auto) (0.00-0.03) X10*3/uL Absolute Neuts (auto) (2.0-8.3) x10*3/uL Absolute Nucleated RBC (0.0-0.012) X10*3/uL Nucleated RBC % (auto) (0.0-0.2) /100WBC Whole Blood PT (11.1-13.5) sec Whole Blood INR (0.9-1.1) D-Dimer High Sensitivty < 150 NG/ML VBG pH 7.39 (7.32-7.43) VBG pCO2 43 mmHg VBG pO2 76 mmHg VBG HCO3 27 H (22-26) mmol/L VBG O2 Saturation 93.0 % VBG Base Excess 2.1 mmol/L Sodium (135-145) mmol/L Potassium (3.3-5.1) mmol/L Chloride (96-108) mmol/L Carbon Dioxide (22-29) mmol/L Anion Gap (12-20) BUN (9-16) mg/dL Creatinine (0.5-1.4) mg/dL Estim Creat Clear Calc Estimated GFR POC Glucose 73 (60-115) mg/dL Random Glucose (60-115) mg/dL Lactic Acid (0.5-2.0) mmol/L Lactic Acid F/U @ 2Hr (0.5-2.0) mmol/L Calcium (8.4-10.2) mg/dL Magnesium (1.6-2.6) mg/dL Total Bilirubin (0.0-1.0) mg/dL Direct Bilirubin (0.0-0.5) mg/dL AST (5-37) U/L ALT (0-40) U/L Alkaline Phosphatase (39-117) U/L Total Creatine Kinase (38-174) U/L Troponin I High Sens (<3.5-35.0) ng/L C-Reactive Protein (< or = 0.50) mg/dL Total Protein (6.5-8.0) g/dL Albumin (3.5-5.0) g/dL Lipase (8-78) U/L TSH (0.32-4.0) uIU/mL Urine Color Urine Appearance Urine pH (5.0-9.0) Ur Specific [place] (1.005-1.025) Urine Protein (Neg-Trace) mg/dL Urine Glucose (UA) (Negative) mg/dL Urine Ketones (Negative) mg/dL Urine Blood (Negative) Urine Nitrite (Negative) Ur Leukocyte Esterase (Negative) Urine RBC (0-2) /HPF Urine WBC (0-5) /HPF Ur Squamous Epith Cells (0-2) /HPF Urine Bacteria (None Seen) Hyaline Casts (0-2) /LPF Ethyl Alcohol mg/dL Influenza Type A (PCR) (Negative) Influenza Type B (PCR) (Negative) RSV RNA Qual (PCR) (Negative) SARS-CoV-2 RNA (RT-PCR) (Negative) 01/29/25 01/29/25 01/29/25 Range/Units 00:40 01:21 01:37 WBC (4.8-10.8) X10*3/uL RBC (4.60-5.80) X10*6/uL Hgb (14.0-18.0) g/dl Hct (42.0-52.0) % MCV (80.0-98.0) fL MCH (27.0-33.0) pg MCHC (31.0-36.0) g/dl RDW (11.0-16.0) % Plt Count (160-400) X10*3/uL MPV (9.4-12.4) fL Immature Gran % (Auto) (0.0-0.4) % Neut % (Auto) (45-73) % Lymph % (Auto) (20-40) % [place] % (Auto) (2-11) % Eos % (Auto) (0-4) % Baso % (Auto) (0-2) % Lymph # (Auto) (1.2-4.9) X10*3/uL [place] # (Auto) (0.1-1.2) X10*3/uL Eos # (Auto) (0.0-0.4) X10*3/uL Baso # (Auto) (0.0-0.2) X10*3/uL Abs Immat Gran (auto) (0.00-0.03) X10*3/uL Absolute Neuts (auto) (2.0-8.3) x10*3/uL Absolute Nucleated RBC (0.0-0.012) X10*3/uL Nucleated RBC % (auto) (0.0-0.2) /100WBC Whole Blood PT (11.1-13.5) sec Whole Blood INR (0.9-1.1) D-Dimer High Sensitivty NG/ML VBG pH (7.32-7.43) VBG pCO2 mmHg VBG pO2 mmHg VBG HCO3 (22-26) mmol/L VBG O2 Saturation % VBG Base Excess mmol/L Sodium (135-145) mmol/L Potassium (3.3-5.1) mmol/L Chloride (96-108) mmol/L Carbon Dioxide (22-29) mmol/L Anion Gap (12-20) BUN (9-16) mg/dL Creatinine (0.5-1.4) mg/dL Estim Creat Clear Calc Estimated GFR POC Glucose 71 88 (60-115) mg/dL Random Glucose (60-115) mg/dL Lactic Acid (0.5-2.0) mmol/L Lactic Acid F/U @ 2Hr 0.9 (0.5-2.0) mmol/L Calcium (8.4-10.2) mg/dL Magnesium (1.6-2.6) mg/dL Total Bilirubin (0.0-1.0) mg/dL Direct Bilirubin (0.0-0.5) mg/dL AST (5-37) U/L ALT (0-40) U/L Alkaline Phosphatase (39-117) U/L Total Creatine Kinase (38-174) U/L Troponin I High Sens 77.5 H (<3.5-35.0) ng/L C-Reactive Protein (< or = 0.50) mg/dL Total Protein (6.5-8.0) g/dL Albumin (3.5-5.0) g/dL Lipase (8-78) U/L TSH (0.32-4.0) uIU/mL Urine Color Yellow Urine Appearance Clear Urine pH 5.5 (5.0-9.0) Ur Specific [place] 1.025 (1.005-1.025) Urine Protein 30 (1+) H (Neg-Trace) mg/dL Urine Glucose (UA) >=1000 H (Negative) mg/dL Urine Ketones Negative (Negative) mg/dL Urine Blood Trace H (Negative) Urine Nitrite Negative (Negative) Ur Leukocyte Esterase Moderate (2+) H (Negative) Urine RBC 0-2 (0-2) /HPF Urine WBC 21-50 H (0-5) /HPF Ur Squamous Epith Cells 0-2 (0-2) /HPF Urine Bacteria None Seen (None Seen) Hyaline Casts 0-2 (0-2) /LPF Ethyl Alcohol mg/dL Influenza Type A (PCR) (Negative) Influenza Type B (PCR) (Negative) RSV RNA Qual (PCR) (Negative) SARS-CoV-2 RNA (RT-PCR) (Negative) 01/29/25 01/29/25 Range/Units 01:43 02:47 WBC (4.8-10.8) X10*3/uL RBC (4.60-5.80) X10*6/uL Hgb (14.0-18.0) g/dl Hct (42.0-52.0) % MCV (80.0-98.0) fL MCH (27.0-33.0) pg MCHC (31.0-36.0) g/dl RDW (11.0-16.0) % Plt Count (160-400) X10*3/uL MPV (9.4-12.4) fL Immature Gran % (Auto) (0.0-0.4) % Neut % (Auto) (45-73) % Lymph % (Auto) (20-40) % [place] % (Auto) (2-11) % Eos % (Auto) (0-4) % Baso % (Auto) (0-2) % Lymph # (Auto) (1.2-4.9) X10*3/uL [place] # (Auto) (0.1-1.2) X10*3/uL Eos # (Auto) (0.0-0.4) X10*3/uL Baso # (Auto) (0.0-0.2) X10*3/uL Abs Immat Gran (auto) (0.00-0.03) X10*3/uL Absolute Neuts (auto) (2.0-8.3) x10*3/uL Absolute Nucleated RBC (0.0-0.012) X10*3/uL Nucleated RBC % (auto) (0.0-0.2) /100WBC Whole Blood PT (11.1-13.5) sec Whole Blood INR (0.9-1.1) D-Dimer High Sensitivty NG/ML VBG pH 7.44 H (7.32-7.43) VBG pCO2 37 mmHg VBG pO2 91 mmHg VBG HCO3 25 (22-26) mmol/L VBG O2 Saturation 98.0 % VBG Base Excess 2.1 mmol/L Sodium (135-145) mmol/L Potassium (3.3-5.1) mmol/L Chloride (96-108) mmol/L Carbon Dioxide (22-29) mmol/L Anion Gap (12-20) BUN (9-16) mg/dL Creatinine (0.5-1.4) mg/dL Estim Creat Clear Calc Estimated GFR POC Glucose 161 H (60-115) mg/dL Random Glucose (60-115) mg/dL Lactic Acid (0.5-2.0) mmol/L Lactic Acid F/U @ 2Hr (0.5-2.0) mmol/L Calcium (8.4-10.2) mg/dL Magnesium (1.6-2.6) mg/dL Total Bilirubin (0.0-1.0) mg/dL Direct Bilirubin (0.0-0.5) mg/dL AST (5-37) U/L ALT (0-40) U/L Alkaline Phosphatase (39-117) U/L Total Creatine Kinase (38-174) U/L Troponin I High Sens (<3.5-35.0) ng/L C-Reactive Protein (< or = 0.50) mg/dL Total Protein (6.5-8.0) g/dL Albumin (3.5-5.0) g/dL Lipase (8-78) U/L TSH (0.32-4.0) uIU/mL Urine Color Urine Appearance Urine pH (5.0-9.0) Ur Specific [place] (1.005-1.025) Urine Protein (Neg-Trace) mg/dL Urine Glucose (UA) (Negative) mg/dL Urine Ketones (Negative) mg/dL Urine Blood (Negative) Urine Nitrite (Negative) Ur Leukocyte Esterase (Negative) Urine RBC (0-2) /HPF Urine WBC (0-5) /HPF Ur Squamous Epith Cells (0-2) /HPF Urine Bacteria (None Seen) Hyaline Casts (0-2) /LPF Ethyl Alcohol mg/dL Influenza Type A (PCR) (Negative) Influenza Type B (PCR) (Negative) RSV RNA Qual (PCR) (Negative) SARS-CoV-2 RNA (RT-PCR) (Negative) Independent Interpretation I performed an independent interpretation of an: EKG, Plain X-Ray (No pneumonia) and CT Scan (no ICH ) Interpretation: Rate: 73 Rhythm: Normal sinus rhythm [place]: Left, LVH Normal P waves. Normal REEMA. Normal QRS complex. ST T wave : Normal, no ST-elevation qTC: 482 prior studies: No acute ischemia The study has been interpreted contemporaneously by me. . Radiology Impression Discussion of test interpretation with radiology: I discussed test interpretation with the radiologist and I have reviewed the radiologist's reading. Independent Historian Clinical information obtained from an independent historian. History obtained from or confirmed by: EMS and Other (Son, granddaughter) External Record Review External record reviewed: Outpatient record and Prior outpatient labs Critical Care Time Critical Care Time Critical Care Time: Yes Total Critical Care Time: 75 Attestation: Time is exclusive of separately billable procedures. Time includes: direct patient care, patient reassessment, coordination of patient care, interpretation of data (laboratory data, pulse oximetry, venous blood gases and chest xrays), review of patient's medical records, medical consultation and documentation of patient care. Treatment of hypoglycemia with IV dextrose, hypothermia intervention, stat stroke protocol and initiation of sepsis protocol given the combination of hypothermia and hypoglycemia. IV potassium to prevent life-threatening arrhythmia Procedures excluded from critical care time: electrocardiography. I attest to this time spent taking care of the patient Discharge Plan Discharge Clinical Impression: Hypoglycemia, Acute hypokalemia, Hypoxia, Acidosis, lactic, Abnormal urinalysis Hypothermia Qualifiers: Encounter type: initial encounter Qualified Code(s): T68.XXXA - Hypothermia, initial encounter Patient Disposition: Home, Self-Care Additional Instructions: Your urine test suggests the possibility that there may be a urinary tract infection. Please apple picker the prescription for the antibiotic cefuroxime this morning and take the medication 2 times a day until done. You will need to work with the your and your son with the your diabetes management and your dosing of insulin. Please make sure that you take all your doses of insulin according to the recommendations from your doctor. Please contact your regular doctor's office on Friday for a follow up appointment soon. Return to the emergency room if significantly worse. Prescriptions: New cefuroxime axetil 250 mg tablet 250 mg PO BID 5 Days Qty: 10 0RF No Action Jardiance 10 mg tablet 10 mg PO QAM losartan 100 mg tablet 100 mg PO DAILY furosemide 20 mg tablet 20 mg PO QAM docusate sodium 100 mg capsule 100 mg PO ferrous sulfate 325 mg (65 mg iron) tablet 325 mg PO BID ascorbic acid (vitamin C) 500 mg tablet 500 mg PO BID pantoprazole 20 mg tablet,delayed release (DR/EC) 20 mg PO DAILY Lantus Solostar U-100 Insulin 100 unit/mL (3 mL) insulin pen 33 unit subcut QPM metformin 1,000 mg tablet 1,000 mg PO BID aspirin 81 mg tablet,delayed release (DR/EC) 81 mg PO DAILY (DME) FreeStyle Lite Strips Strip See Rx Instructions Not Applicable .MEDSUPPLY Qty: 10 Rx Instructions: As directed atorvastatin 40 mg tablet 40 mg PO BEDTIME insulin aspart U-100 100 unit/mL (3 mL) insulin pen subcut cyanocobalamin (vitamin B-12) 1,000 mcg tablet extended release 1,000 mcg PO DAILY bisacodyl [Dulcolax (bisacodyl)] 5 mg tablet,delayed release (DR/EC) 10 mg PO BEDTIME 2 Days Qty: 4 0RF peg 3350-electrolytes [Golytely] 236-22.74-6.74 -5.86 gram recon soln 240 ml PO Q10M 1 Days Qty: 4000 0RF Rx Instructions: until fecal effluent is clear; do not exceed a total volume of 2,000 mL Referrals: Marta Washington MD [Primary Care Provider, Internal Medicine] Print Language: [place]
[2025-01-28 22:20] VITALS: BP 126/81; PULSE 75; RESP 15; O2SAT 96
--- NOTE | 2025-01-28 22:25 | PC.NURSE ---
Pt transported to CT
[2025-01-28 22:27] LABS: Prothrombin Time Whole Bld POC 12.0 sec (11.1-13.5); ~PT, ~INR - Anti Coag Clinic 1.0 (0.9-1.1)
[2025-01-28 22:30] VITALS: O2SAT 88
--- OUTSIDE RECORDS SUMMARY | 2025-01-28 22:34 | XMS_ITS | Encounter Summary ---
Author Organization [employer] Address [address] [facility] 7t [place] [address] Care Team Providers Care Weight Control Engineer Name Role Phone Marta Wsahington MD Primary Care Provider [phone] Tahir Siu PharmD Unavailable [phone] Reason for Referral * Medications - Closed Specialty Diagnoses / Procedures Referred By Contbrittnee t Referred To Contact Diagnoses T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, with long-term current use of insulin (HCC) Marta Washington MD [address] [place] [address] Phone: tel: fax: Referral ID Status Reason Start Date Expiration Date Visits Re quested Visits Authorized [id number] Closed 1 1 Reason for Visit * Reason Onset Date Comments Prior Authorization 01/27/2025 Encounter Details Date Type Department Care Team (Late st Contact Info) Description 01/27/2025 Refill [facility] [address] [place] [address] Celina Eason, RN [address] [place], [place] [phone] T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, with long-term current use of insulin (HCC) (Primary Dx) Social History Tobacco Use Types [...] encounter Miscellaneous Notes * Telephone Encounter - Celina Eason RN - 01/27/2025 2:14 PM EST Received request from pharmacy for vahe 2 sensor renewal PA. Vahe 2 sensors no longer made by full service supervisor. Queued vahe 2 plus sensors and completed vahe 2 plus sensor PA. documented in this encounter Plan of Treatment Upcoming Encounters Date Type Department Care Team (Late st Contact Info) Description 02/02/2025 9:00 AM EST Office Visit [facility] [address] [place] [address] Marta Washington MD [address] [place] [address] 04/01/2025 9:00 AM EST Medication Management [facility] [address] [place] [address] Tahir Siu PharmD [address] [place] [address] 06/06/2025 9:30 AM EDT Office Visit [facility] [address] [place], [place] [phone] Melany Pereira, OD [address] [place] [address] documented as of this encounter Goals Goal [...] complication, with long-term current use of insulin (HCC)- Primary documented in this encounter Additional Health Concerns Assessment Noted Time PHQ-9 Depression Total Score: 0 07/30/19 25 9:01 AM EDT documented as of this encounter Care Teams Weight Control Engineer Relationship Specialty Start Date End Date Marta Washington MD [address] [place] [address] PCP - General Family Medicine 07/03/16 Tahir Siu PharmD [address] [place] [address] Pharmacist Internal Medicine 11/11/22 documented as of this encounter
--- OUTSIDE RECORDS SUMMARY | 2025-01-28 22:34 | XMS_ITS | Encounter Summary ---
Author Organization [employer] Address [address] [facility] 7t [place] [address] Care Team Providers Care Burning Plant Operator Name Role Phone Marta Washington MD Primary Care Provider [phone] Tahir Siu PharmD Unavailable [phone] Encounter Details Date Type Department Care Team (Late st Contact Info) Description 05/26/2024 Orders Only [facility] [address] [place], [place] [phone] Marta Washington MD [address] [place], [place] [phone] Social History Tobacco Use Types Packs/Day Years [...] Description 02/02/2025 9:00 AM EST Office Visit [facility] [address] [place] [address] Marta Washington MD [address] [place] [address] 04/01/2025 9:00 AM EST Medication Management [facility] [address] [place] [address] Tahir Siu, PharmD [address] [place] [address] 06/06/2025 9:30 AM EDT Office Visit [facility] [address] [place] [address] Melany Pereira OD [address] [place] [address] documented as of this encounter Goals Goal Patient Goal Type Associated Problems Recent Progress Patient-Stated? Author Blood Pressure < 140/90 Blood Pressure 122/58(2024 9:15 AM EDT) No Tahir Siu, PharmD Hemoglobin A1c < 7 Result Component 8.7( 5 9:53 AM EDT) No Tahir Siu PharmD documented as of this encounter Visit Diagnoses Not on filedocumented in this encounter Additional Health Concerns Assessment Noted Time PHQ-9 Depression Total Score: 3 07/29/19 24 9:26 AM EDT documented as of this encounter Care Teams Burning Plant Operator Relationship Specialty Start Date End Date Marta Washington MD [address] [place] [address] PCP - General Family Medicine 07/03/16 Tahir Siu PharmD [address] [place] [address] Pharmacist Internal Medicine 11/11/22 documented as of this encounter
--- OUTSIDE RECORDS SUMMARY | 2025-01-28 22:34 | XMS_ITS | Encounter Summary ---
Author Organization [employer] Address [address] [facility] 7t [place] [address] Care Team Providers Care Hris Analyst Name Role Phone Marta Washington MD Primary Care Provider [phone] Tahir Siu PharmD Unavailable [phone] Reason for Referral * Consultation (Routine) - Pending Review Specialty Diagnoses / Procedures Referred By Isreal lim Referred To Contact Pharmacy Diagnoses T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, with long-term current use of insulin (HCC) Primary hypertension Marta Washington MD [address] [place] [address] Phone: tel: fax: Referral ID Status Reason Start Date Expiration Date Visits Requested Visits Authorized [id number] Pending Review Consult and Treat 05/27/2024 05/27/2025 6 6 Encounter Details Date Type Department Care Team (Late st Contact Info) Description 05/27/2024 Orders Only [facility] [address] [place], [place] [phone] Marta Washington MD [address] [place], [place] [phone] Type 2 diabetes mellitus with other circulatory [...] Description 02/02/2025 9:00 AM EST Office Visit [facility] [address] [place] [address] Marta Washington MD [address] [place] [address] 04/01/2025 9:00 AM EST Medication Management [facility] [address] [place] [address] Tahir Siu PharmD [address] [place] [address] 06/06/2025 9:30 AM EDT Office Visit [facility] [address] [place] [address] Randall, Melany, OD [address] [place] [address] Scheduled Referrals Name Type Priority Associated Diagnoses Orde r Schedule Referral to Pharmacy CDTM Outpatient Referral Routine T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, with long-term current use of insulin ([facility]) Primary hypertension Ordered: 05/27/2024 documented as [...] complication, with long-term current use of insulin ([facility])- Primary Primary hypertension Unspecified essential hypertension documented in this encounter Additional Health Concerns Assessment Noted Time PHQ-9 Depression Total Score: 3 07/29/19 24 9:26 AM EDT documented as of this encounter Care Teams Hris Analyst Relationship Specialty Start Date End Date Marta Washington MD [address] [place] [address] [phone] PCP - General Family Medicine 07/03/16 Tahir Siu PharmD [address] [place] [address] [phone] Pharmacist Internal Medicine 11/11/22 documented as of this encounter
--- OUTSIDE RECORDS SUMMARY | 2025-01-28 22:35 | XMS_ITS | Encounter Summary ---
Author Organization [employer] Address [address] [facility] 7t [place] [address] Care Team Providers Care Water Treatment Specialist Name Role Phone Marta Washington MD Primary Care Provider [phone] Tahir Siu PharmD Unavailable [phone] Encounter Details Date Type Department Care Team (Latest Contact Info) Description 09/20/2021 Abstract [facility] CONVERSIONS Dental, Provider, DDS Social History [...] 02/02/2025 9:00 AM EST Office Visit [facility] [address] [place] [address] Marta Washington MD [address] [place] [address] 04/01/2025 9:00 AM EST Medication Management [facility] [address] [place] [address] Tahir Siu, PharmD [address] [place] [address] 06/06/2025 9:30 AM EDT Office Visit [facility] [address] [place] [address] Melany Pereira, OD [address] [place] [address] documented as of this encounter Visit Diagnoses Not on filedocumented in this encounter Care Teams Water Treatment Specialist Relationship Specialty Start Date End Date Marta Washington MD [address] [place] [address] PCP - General Family Medicine 07/03/16 Tahir Siu, RebaD [address] [place] [address] [phone] Pharmacist Internal Medicine 11/11/22 documented as of this encounter
--- OUTSIDE RECORDS SUMMARY | 2025-01-28 22:35 | XMS_ITS | Encounter Summary ---
Author Organization [employer] Address [address] [facility] 7t [place] [address] Care Team Providers Care Minilab Operator Name Role Phone Marta Washington MD Primary Care Provider [phone] Tahir Siu PharmD Unavailable Encounter Details Date Type Department Care Team (Late st Contact Info) Description 12/04/2022 Telephone [facility] [address] [place], [place] [phone] Marta Washington MD [address] [place], [place] [phone] Social History Tobacco Use Types Packs/Day Years [...] There is a TB documentation form, from [facility], that needs to be completed. Thank you. [employer] order for patient for work. documented in this encounter Plan of Treatment Upcoming Encounters Date Type Department Care Team (Late st Contact Info) Description 02/02/2025 9:00 AM EST Office Visit [facility] [address] [place] [address] Marta Washington MD [address] [place] [address] 04/01/2025 9:00 AM EST Medication Management [facility] [address] [place] [address] Tahir Siu PharmD [address] [place] [address] 06/06/2025 9:30 AM EDT Office Visit [facility] [address] [place] [address] Randall, Melany, OD [address] [place] [address] Scheduled Orders Name Type Priority Associated Diagnoses [...] documented as of this encounter Care Teams Minilab Operator Relationship Specialty Start Date End Date Marta Washington MD [address] [place] [address] PCP - General Family Medicine 07/03/16 Tahir Siu, PharmD [address] [place] [phone] Pharmacist Internal Medicine 11/11/22 documented as of this encounter
--- OUTSIDE RECORDS SUMMARY | 2025-01-28 22:35 | XMS_ITS | Encounter Summary ---
Author Organization [employer] Address [address] [facility] [address] 7t [place] [address] Care Team Providers Care Safety Admin Assistant Name Role Phone Marta Washington MD Primary Care Provider [phone] Tahir Siu PharmD Unavailable [phone] Encounter Details Date Type Department Care Team (Late st Contact Info) Description 08/05/2024 Orders Only [facility] [address] [place], [place] [phone] Marta Washington MD [address] [place], [place] [phone] T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, with long-term current use of insulin ([facility]) (Primary Dx) Social History Tobacco Use Types [...] Description 02/02/2025 9:00 AM EST Office Visit [facility] [address] [place] [address] Marta Washington MD [address] [place] [address] 04/01/2025 9:00 AM EST Medication Management [facility] [address] [place] [address] Tahir Siu, PharmD [address] [place] [address] 06/06/2025 9:30 AM EDT Office Visit [facility] [address] [place] [address] Melany Pereira, OD [address] [place] [address] documented as of this encounter Goals Goal [...] documented as of this encounter Care Teams Safety Admin Assistant Relationship Specialty Start Date End Date Marta Washington MD [address] [place] [phone] PCP - General Family Medicine 07/03/16 Tahir Siu PharmD [address] [place] [address] Pharmacist Internal Medicine 11/11/22 documented as of this encounter
--- OUTSIDE RECORDS SUMMARY | 2025-01-28 22:35 | XMS_ITS | Encounter Summary ---
Author Organization [employer] Address [address] [facility] 7t [place] [address] Care Team Providers Care Metalizing Machine Operator Automatic Name Role Phone Marta Washington MD Primary Care Provider [phone] Tahir Siu PharmD Unavailable [phone] Encounter Details Date Type Department Care Team (Latest Contact Info) Description 11/25/2019 Abstract [facility] CONVERSIONS Dental, Provider, DDS Social History [...] Description 02/02/2025 9:00 AM EST Office Visit [facility] [address] [place] [address] Marta Washington MD [address] [place] [address] 04/01/2025 9:00 AM EST Medication Management [facility] [address] [place] [address] Tahir Siu, PharmD [address] [place] [address] 06/06/2025 9:30 AM EDT Office Visit [facility] [address] [place] [address] Melany Pereira, OD [address] [place] [address] documented as of this encounter Visit Diagnoses Not on filedocumented in this encounter Care Teams Metalizing Machine Operator Automatic Relationship Specialty Start Date End Date Marta Washington MD [address] [place] [address] PCP - General Family Medicine 07/03/16 Tahir Siu, RebaD [address] [place] [address] [phone] Pharmacist Internal Medicine 11/11/22 documented as of this encounter
--- OUTSIDE RECORDS SUMMARY | 2025-01-28 22:35 | XMS_ITS | Encounter Summary ---
Author Organization [employer] Address [address] [facility] 7t [place] [address] Care Team Providers Care Junior Php Developer Name Role Phone Marta Washington MD Primary Care Provider [phone] Tahir Siu PharmD Unavailable [phone] Encounter Details Date Type Department Care Team (Late st Contact Info) Description 04/15/2022 Orders Only [facility] [address] [place] [phone] Zeenat Torres LPN Social History Tobacco Use [...] Description 02/02/2025 9:00 AM EST Office Visit [facility] [address] [place] [address] [phone] Marta Washington MD [address] [place] [address] [phone] 04/01/2025 9:00 AM EST Medication Management [facility] [address] [place] [address] [phone] Tahir Siu, PharmD [address] [place], [place] [phone] 06/06/2025 9:30 AM EDT Office Visit [facility] [address] [place], [place] [phone] Melany Pereira, OD [address] [place] [address] documented as of this encounter Visit Diagnoses Not on filedocumented in this encounter Care Teams Junior Php Developer Relationship Specialty Start Date End Date Marta Washington MD [address] [place], [place] [phone] PCP - General Family Medicine 07/03/16 Tahir Siu, PharmD [address] [place] [address] [phone] Pharmacist Internal Medicine 11/11/22 documented as of this encounter
--- OUTSIDE RECORDS SUMMARY | 2025-01-28 22:35 | XMS_ITS | Encounter Summary ---
Author Organization [employer] Address [address] [facility] 7t [place] [address] Care Team Providers Care Student Teacher Name Role Phone Marta Washington MD Primary Care Provider [phone] Tahir Siu PharmD Unavailable [phone] Reason for Referral * Consultation (Routine) - Closed Specialty Diagnoses / Procedures Referred By Isreal lim Referred To Contact Speech Pathology Diagnoses Choking, initial encounter Marta Washington MD [address] [place] [address] Phone: tel: fax: [facility] [address] Floor [place], [place] Phone: tel: fax: Referral ID Status Reason Start Date Expiration Date V isits Requested Visits Authorized [id number] Closed Specialty Services Required 09/15/2023 09/14/2024 1 1 * Imaging (Routine) - Closed Specialty Diagnoses / Procedures Referred By Isreal lim Referred To Contact Radiology Diagnoses Choking, initial encounter Procedures FL BARIUM SWALLOW MODIFIED Marta Washington MD [address] [place] [address] Phone: tel: fax: [facility] [address] [place] [address] Phone: tel: fax: Referral ID Status Reason Start Date Expiration Date V isits Requested Visits Authorized [id number] Closed Perform Procedure 09/15/2023 09/14/2024 1 1 Encounter Details Date Type Department Care Team (Late st Contact Info) Description 09/15/2023 Orders Only [facility] [address] [place] [address] Marta Washington MD [address] [place] [address] Choking, initial encounter (Primary Dx) Social History [...] Description 02/02/2025 9:00 AM EST Office Visit [facility] [address] [place] [address] Marta Washington MD [address] [place] [address] 04/01/2025 9:00 AM EST Medication Management [facility] [address] [place] [address] Tahir Siu PharmD [address] [place] [address] 06/06/2025 9:30 AM EDT Office Visit [facility] [address] [place] [address] RandallMelany galaviz, OD [address] [place] [address] Scheduled Referrals Name Type Priority Associated Diagnoses [...] PM EDT Narrative 11/05/2023 9:06 AM EDT [address] [address] Fluoroscopy Report Signed Patient: Thad Van MR #: [id number] : 1940 Acct:[id number] Age/Sex: 82 / M ADM Date: 11/03/23 Loc: HO.XRAY Attending Dr: Marta Washington MD Ordering Physician: Marta Washington MD Date of Service: 11/03/23 Procedure(s): FL barium swallow modified Accession Number(s): [id number] cc: Marta Washington MD EXAMINATION: Modified Barium [...] in OV> 11/05/23 0906 DD/ 1505 TD/TT: Open Shank Coverer: Procedure Note Donotuseinterpreter, Image - 11/05/[address] [address] Fluoroscopy Report Signed Patient: Adri VanR #: [id number] : [id number]:[id number] Age/Sex: 82 / MADM Date: 11/03/23 Loc: HO.XRAY Attending Dr: Marta Washington MD Ordering Physician: Marta Washington MD Date of Service: 11/03/23 Procedure(s): FL barium swallow modified Accession Number(s): [id number] cc: Marta Washington MD EXAMINATION: Modified Barium [...] in OV> 11/05/23 0906 DD/ 1505 TD/TT: Open Shank Coverer: Marta Washington MD IMG FLUOROSCOPY PROCEDURES Final Result documented in this encounter Visit Diagnoses Diagnosis Choking, initial encounter- Primary documented in this encounter Additional Health Concerns Assessment Noted Time PHQ-9 Depression Total Score: 3 07/29/19 24 9:26 AM EDT documented as of this encounter Care Teams Student Teacher Relationship Specialty Start Date End Date Marta Washington MD [address] [place] [address] PCP - General Family Medicine 07/03/16 Tahir Siu, Tierney [address] [place] [address] Pharmacist Internal Medicine 11/11/22 documented as of this encounter
--- OUTSIDE RECORDS SUMMARY | 2025-01-28 22:35 | XMS_ITS | Encounter Summary ---
Author Organization [employer] Address [address] [facility] 7 [place] [address] Care Team Providers Care Park Ranger Name Role Phone Marta Washington MD Primary Care Provider [phone] Tahir Siu PharmD Unavailable [phone] Reason for Referral * Consultation (Routine) - Closed Specialty Diagnoses / Procedures Referred By Isreal lim Referred To Contact Memory Care Diagnoses Cognitive impairment Marta Washington MD [address] [place] [address] Phone: tel: fax: [facility] [address] [facility] [address] [place] [address] Phone: tel: fax: Referral ID Status Reason Start Date Expiration Date V isits Requested Visits Authorized [id number] Closed Specialty Services Required 05/28/2024 05/28/2025 1 1 Encounter Details Date Type Department Care Team (Late st Contact Info) Description 05/28/2024 Orders Only [facility] [address] [place] [address] Marta Washington MD [address] [place] [address] Cognitive impairment (Primary Dx); Lymphoma in remission; [...] AM EDT documented as of this encounter Functional Status * Over the past 2 weeks, how often have you been bothered by any of the following problems? Question Answer Date of Assessment Author Patient Health Questionnaire-2 Score 0 10/2024 9:01 AM EDT Joycelyn Hadley MA * Little interest or pleasure in doing things Answer Date of Assessment Author Not at all 07/29/2024 9:01 AM EDT Aubrey Hadley MA * Feeling down, depressed, or hopeless Answer Date of Assessment Author Not at all 07/29/2024 9:01 AM EDT Aubrey Hadley MA * Trouble falling or staying asleep, or sleeping too much Answer Date of Assessment Author Not at all 07/29/2024 9:01 AM EDT Aubrey Hadley MA * Feeling tired or having little energy Answer Date of Assessment Author Not at all 07/29/2024 9:01 AM EDT Aubrey Hadley MA * Poor appetite or overeating Answer Date of Assessment Author Not at all 07/29/2024 9:01 AM CHANCET Aubrey Hadley MA * Feeling bad about yourself - or that you are a failure or have let yourself or your family down Answer Date of Assessment Author Not at all 07/29/2024 9:01 AM EDAubrey Walker MA * Trouble concentrating on things, such as reading the newspaper or watching television Answer Date of Assessment Author Not at all 07/29/2024 9:01 AM Aubrey Talamantes MA * Moving or speaking so slowly that other people could have noticed? Or the opposite - being so fidgety or restless that you have been moving around a lot more than usual. Answer Date of Assessment Author Not at all 07/29/2024 9:01 AM Aubrey Talamantes MA * Thoughts that you would be better off or hurting yourself in some way Answer Date of Assessment Author Not at all 07/29/2024 9:01 AM Aubrey Talamantes MA * Patient Health Questionnaire-9 Score Answer Date of Assessment Author 0 07/29/2024 9:01 AM Aubrey Talamantes MA * Over the last 2 weeks, how often have you been bothered by any of the following problems? Question Answer Date of Assessment Author Feeling nervous, anxious, or on edge 0 11/01/2024 9:25 AM CHANCET Trixie Slade MA Not being able to stop or control worrying 0 11/01/2024 9:25 AM EDT Trixie Slade MA Worrying too much about different things 0 11/01/2024 9:25 AM EDT Trixie Slade MA Trouble relaxing 0 11/01/2024 9:25 AM EDT Comfort Moctezuma MA Being so restless that it is hard to sit still 0 11/01/2024 9:25 AM EDT Trixie Slade MA Becoming easily annoyed or irritable 0 11/01/2024 9:25 AM EDT Trixie Slade MA Feeling afraid as if somethi ng awful might happen 0 11/01/2024 9:25 AM EDT Trixie Slade MA ISIDRO-7 Total Score 0 11/01/2024 9:25 AM EDT Comfort Slade MA documented as of this encounter Plan of Treatment Upcoming Encounters Date Type Department Care Team (Late st Contact Info) Description 02/02/2025 9:00 AM EST Office Visit [facility] [address] [place] [address] Marta Washington MD [address] [place] [address] 04/01/2025 9:00 AM EST Medication Management [facility] [address] [place] [address] Tahir Siu, PharmD [address] [place] [address] 06/06/2025 9:30 AM EDT Office Visit [facility] [address] [place] [address] Melany Pereira, OD [address] [place] [address] Scheduled Referrals Name Type Priority Associated Diagnoses [...] conditions classified elsewhere 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
--- OUTSIDE RECORDS SUMMARY | 2025-01-28 22:35 | XMS_ITS | Encounter Summary ---
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); Anemia, [...] 9:00 AM EST Office Visit [facility] [address] [place] [phone] Marta Washington MD [address] [place] [address] 04/01/2025 9:00 AM EST Medication Management [facility] [address] [place] [address] Tahir Siu, PharmD [address] [place] [address] 06/06/2025 9:30 AM EDT Office Visit [facility] [address] [place] [address] Melany Pereira, OD [address] [place] [address] documented as of this encounter Goals Goal [...] complication, with long-term current use of insulin ([facility]) Primary hypertension CBC WITH AUTO DIFFERENTIAL Routine 08/11/2024 7:59 AM EDT Anemia, unspecified type IRON AND TOTAL IRON BINDING CAPACITY Routine 08/11/2024 7:59 AM EDT Anemia, unspecified type RETICULOCYTE COUNT Routine 08/11/2024 7: 59 AM EDT Anemia, unspecified type LD Routine 08/11/2024 7:59 AM EDT Lymphoma in remission ([facility]) Anemia, unspecified type FERRITIN Routine 08/11/2024 7:59 AM EDT Anemia, unspecified type COMPREHENSIVE METABOLIC PANEL Routine 08/11/2024 7:59 AM EDT Primary hypertension documented in this encounter Results * Vitamin B12 (Cobalamin) and Folate Panel, Serum (08/11/2024 7:59 AM EDT) Vitamin B12 468 200 - 900 pg/mL [facility] Comment:NORMAL 200-900 PG/ML INDETERMINATE 160-199 PG/ML DEFICIENT < 160 PG/ML Folate 9.7 > or = 4.0 ng/mL [facility] Comment:Reference Values:> o r = 4.0 ng/mL< 4.0 ng/mL suggests folate deficiency Methotrexate, aminopterin and folinic acid(leucovorin) are chemotherapeutic agents whose molecularstructures are similar to folate; therefore, the Architectfolate assay cannot be used for patients using these drugs. Blood 08/11/2024 7:59 AM EDT 08/11/2024 11:04 AM EDT Marta Washington MD LAB BLOOD ORDERABLES Final Resul t Performing Organization Address [facility] de Phone Number [facility] [address] [place] [address] [phone] * (ABNORMAL) Reticulocyte Count (08/11/2024 7:59 AM EDT) Pathologist [facility] Reticulocytes Absolute 0.048 0.026 - 0.095 X10*6/uL [facility] Immature Retic Fraction 13.1 2.3 - 13.4 % [facility] Retic HGB Equivalent 35.5(H) 30.0 - 35.0 pg [facility] Reticulocyte Percent 1.2 0.5 - 1.8 % [facility] Blood Venous blood specimen / Unknown 08/11/2024 7:59 AM EDT 08/11/2024 11:04 AM EDT us Marta Washington MD LAB BLOOD ORDERABLES Final Resul t Performing Organization Address [facility] Co de Phone Number [facility] [address] [place] [address] [phone] * Pathologist Review - CBC (08/11/2024 7:59 AM EDT) Pathologist [facility] Pathologist Review - CBC SEE NOTE [facility] Comment:Normochromic normocy tic anemia; echinocytes are present.White blood cells are overall normal appearing. Plateletsare normal appearing.- Tuan Albright M.D. Pathology Blood Venous blood specimen / Unknown 08/11/2024 7:59 AM EDT 08/11/2024 11:04 AM EDT Marta Washington MD LAB BLOOD ORDERABLES Final Resul t Performing Organization Address [facility] Co de Phone Number [facility] [address] [place] [phone] * (ABNORMAL) Iron And Total Iron Binding Capacity (08/11/2024 7:59 AM EDT) Iron 84 45 - 160 mcg/dL [facility] Total Iron Binding Capacity 225(L) 228 - 428 mcg/dL [facility] Percent Iron Saturation 37 15 - 50 % [facility] Unsaturated Iron Binding 141 ug/dL [facility] Blood Venous blood specimen / Unknown 08/11/2024 7:59 AM EDT 08/11/2024 11:04 AM EDT Marta Washington MD LAB BLOOD ORDERABLES Final Resul t Performing Organization Address [facility] Co de Phone Number [facility] [address] [place] [phone] * Ferritin (08/11/2024 7:59 AM EDT) Ferritin 163 20 - 250 ng/mL [facility] Blood Venous blood specimen / Unknown 08/11/2024 7:59 AM EDT 08/11/2024 11:04 AM EDT Marta Washington MD LAB BLOOD ORDERABLES Final Resul t Performing Organization Address [facility] Co de Phone Number [facility] [address] [place] [phone] * Lipid Panel with Reflex to Direct LDL (08/11/2024 7:59 AM EDT) Triglycerides 92 <150 mg/dL [facility] Comment:Desirable Triglyceri de: less than 150 mg/dLBorderline High Triglyceride 150-199 mg/dLHigh Triglyceride: 200-499 mg/dLVery High Triglyceride: greater than or equal to 5OO mg/dL Cholesterol 134 <200 mg/dL [facility] Comment:Desirable Cholestero l: less than 200 mg/dLBorderline High Cholesterol: 200-239 mg/dLHigh Cholesterol: greater than 239 mg/dL LDL Cholesterol Calculated 63 <100 mg/dL [facility] Comment:Desirable LDL: less than 100 mg/dLNear [...] MD LAB BLOOD ORDERABLES Final Resul t [facility] [address] [place] [phone] * Albumin, Random Urine W/Creatinine (08/11/2024 7:59 AM EDT) Creatinine, Urine 70.77 mg/dL [facility] Microalbumin Urine 12.0 mg/L [facility] Microalbum Creatinine Ratio Ur 16.9 <30 ug/mg cr [facility] Comment:Albumin/Creatinine R atio Reference Ranges: Normal: < 30 ug/mg creatinine Microalbuminuria: 30 - 300 ug/mg creatinineClinical Albuminuria: > 300 ug/mg creatinine Urine 08/11/2024 7:59 AM EDT 08/11/2024 10:59 AM EDT Marta Washington MD LAB URINE ORDERABLES Final Resul t [facility] [address] [place] [phone] * (ABNORMAL) Comprehensive Metabolic Panel (08/11/2024 7:59 AM EDT) Sodium 140 135 - 145 mmol/L [facility] Potassium 3.9 3.3 - 5.1 mmol/L [facility] Chloride 107 96 - 108 mmol/L [facility] Carbon Dioxide 27 22 - 29 mmol/L [facility] Anion Gap 10(L) 12 - 20 [facility] Urea Nitrogen (BUN) 28(H) 9 - 16 mg/dL [facility] Creatinine, Serum 1.11 0.5 - 1.4 mg/dL [facility] Estimated Glomerular Filt Rate >60 [facility] Comment:Chronic Kidney Disea se: Estimated GFR < 60 mL/min/[id number] Kidney Disease: Estimated GFR < 15 mL/min/1.73m2 Glucose 142(H) 60 - 115 mg/dL [facility] Calcium 9.2 8.4 - 10.2 mg/dL [facility] Bilirubin, Total 0.4 0.0 - 1.0 mg/dL [facility] Aspartate Amino Transferase 37 5 - 37 U/L [facility] Alanine Aminotransferase 38 0 - 40 U/L [facility] Total Protein 7.3 6.5 - 8.0 g/dL [facility] Albumin Level 4.1 3.5 - 5.0 g/dL [facility] Alkaline Phosphatase 119(H) 39 - 117 U/L [facility] Blood Venous blood specimen / Unknown 08/11/2024 7:59 AM EDT 08/11/2024 11:04 AM EDT Marta Washington MD LAB BLOOD ORDERABLES Final Resul t Performing Organization Address City/[facility]/ZIP Co de Phone Number [facility] [address] [place] [phone] [phone] * (ABNORMAL) Lactate Dehydrogenase (LD) (08/11/2024 7:59 AM EDT) Pathologist [facility] Lactate Dehydrogenase 277(H) 118 - 273 U/L [facility] Blood Venous blood specimen / Unknown 08/11/2024 7:59 AM EDT 08/11/2024 11:04 AM EDT us Marta Washington MD LAB BLOOD ORDERABLES Final Resul t Performing Organization Address [facility] Co de Phone Number [facility] [address] [place] [address] [phone] * (ABNORMAL) CBC auto differential (08/11/2024 7:59 AM EDT) [facility] White Blood Count 7.2 4.8 - 10.8 X10*3/uL [facility] Red Blood Count 4.14(L) 4.60 - 5.80 X10*6/uL [facility] Hemoglobin 12.9(L) 14.0 - 18.0 g/dl [facility] Hematocrit 39.2(L) 42.0 - 52.0 % [facility] Mean Corpuscular Volume 94.7 80.0 - 98.0 fL [facility] Mean Corpuscular Hemoglobin 31.2 27.0 - 33.0 pg [facility] Mean Corpuscular HGB Conc 32.9 31.0 - 36.0 g/dl [facility] Red Cell Distribution Width 14.3 11.0 - 16.0 % [facility] Platelet Count 191 160 - 400 X10*3/uL [facility] Mean Platelet Volume 9.9 9.4 - 12.4 fL [facility] Neutrophils Percent Auto 58.7 45 - 73 % [facility] Imm Gran Pct Auto 0.4 0.0 - 0.4 % [facility] Lymphocytes Percent Auto 23.3 20 - 40 % [facility] Monocytes Percent Auto 10.3 2 - 11 % [facility] Eosinophils Percent Auto 6.7(H) 0 - 4 % [facility] Basophils Percent Auto 0.6 0 - 2 % [facility] NRBC Pct Auto 0.0 0.0 - 0.2 /100WBC [facility] Neutrophils Absolute Auto 4.2 2.0 - 8.3 x10*3/uL [facility] Imm Gran Abs Auto 0.03 0.00 - 0.03 X10*3/uL [facility] Lymphocytes Absolute Auto 1.7 1.2 - 4.9 X10*3/uL [facility] Monocytes Absolute Auto 0.7 0.1 - 1.2 X10*3/uL [facility] Eosinophils Absolute Auto 0.5(H) 0.0 - 0.4 X10*3/uL [facility] Basophils Absolute Auto 0.0 0.0 - 0.2 X10*3/uL [facility] NRBC Abs Auto 0.000 0.0 - 0.012 X10*3/uL [facility] Blood Venous blood specimen / Unknown 08/11/2024 7:59 AM EDT 08/11/2024 11:04 AM EDT us Marta Washington MD LAB BLOOD ORDERABLES Final Resul t [facility] [address] [place] [phone] documented in this encounter Visit Diagnoses Diagnosis 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, unspecified site, extranodal and solid organ sites Anemia, unspecified type Dyslipidemia Other and unspecified hyperlipidemia T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, with long-term current use of insulin (HCC) Primary hypertension Unspecified essential hypertension documented in this encounter Additional Health Concerns Assessment Noted Time PHQ-9 Depression Total Score: 3 07/29/19 24 9:26 AM EDT documented as of this encounter Care Teams Brick And Tile Making Machine Operator Relationship Specialty Start Date End Date Marta Washington MD [address] [place] [address] PCP - General Family Medicine 07/03/16 Tahir Siu, RebaD [address] [place] [address] Pharmacist Internal Medicine 11/11/22 documented as of this encounter
--- OUTSIDE RECORDS SUMMARY | 2025-01-28 22:35 | XMS_ITS | Clinical Summary ---
Author Organization [facility] Address [address] [facility] [address] [place] [phone] Phone Care Team Providers Care Diesel Technician Name Role Phone J Carlos, Lillie Crowe MD Primary Care Provi esa Social History Tobacco Use Types Packs/Day Years Used Date Smoking Tobacco: Never Assessed Education Answer Date Recorded Are you interested in more education? Not on dashawn e 07/19/2022 Are you concerned about learning? Not on file 07/19/2022 No 07/19/2022 No 07/19/2022 Digital Access Answer Date Recorded No 08/20/2022 No 08/20/2022 No 08/20/2022 Reliable internet access at home? Not on file 08/20/2022 Device with a working camera? Not on file Comments Unknown Sex and Gender Information Value Date Recorded Sex Assigned at Not on file Legal Sex Female 12:42 PM EDT Gender Identity Not on file Sexual Orientation Not on file Plan of Treatment Not on file Medical Devices Not on file Insurance [facility] ONE CARE MEDICARE REPLACEMENT MEDICARE REPLACEMENT EX [address] [place] [address] MEDICARE REPLACEMENT MEDICARE REPLACEMENT MEDICARE REPLACEMENT MEDICARE [place]AC[place] [address] [address] CARE MEDICARE REPLACEMENT [facility] ONE CARE MEDICARE REPLACEMENT [facility] MEDICARE REPLACEMENT Care Teams Diesel Technician Relationship Specialty Start Date End Date [place], Lillie Crowe MD [address] [place] [phone] PCP - General Family Medicine 07/02/18 Additional Source Comments The information contained in this document represents components of the legal health record. It is not the complete legal health record.[facility]
--- OUTSIDE RECORDS SUMMARY | 2025-01-28 22:35 | XMS_ITS | Encounter Summary ---
Author Organization [employer] Address [address] [facility] 7t [place] [address] Care Team Providers Care Automatic Machines Supervisor Name Role Phone Marta Washington MD Primary Care Provider [phone] Tahir Siu PharmD Unavailable [phone] Reason for Visit * Reason Comments Med Refill Encounter Details Date Type Department Care Team (Late st Contact Info) Description 09/02/2022 Refill [facility] [address] [place] [address] Marta Washington MD [address] [place] [phone] Type 2 diabetes mellitus without complication, with long-term current use of insulin ([facility]); History of stroke Social History [...] [facility] [address] [place] [address] Marta Washington MD [address] [place] [address] 04/01/2025 9:00 AM EST Medication Management [facility] [address] [place] [address] Tahir Siu, PharmD [address] [place] [address] 06/06/2025 9:30 AM EDT Office Visit [facility] [address] [place], [place] [phone] Melany Pereira, OD [address] [place] [address] documented as of this encounter Visit Diagnoses Diagnosis Type 2 diabetes mellitus without complication, with long-term current use of insulin (HCC) History of stroke Transient ischemic attack (TIA), and cerebral infarction without residual deficits documented in this encounter Additional Health Concerns Assessment Noted Time PHQ-9 Depression Total Score: 0 04/22/19 23 10:14 AM EST documented as of this encounter Care Teams Automatic Machines Supervisor Relationship Specialty Start Date End Date Marta Washington MD [address] [place] [address] PCP - General Family Medicine 07/03/16 Tahir Siu, PharmD [address] [place] [address] [phone] Pharmacist Internal Medicine 11/11/22 documented as of this encounter
--- OUTSIDE RECORDS SUMMARY | 2025-01-28 22:35 | XMS_ITS | Clinical Summary ---
Author Organization [employer] Address [address] [facility] [address] [place] [address] Care Team Providers Care Accounts Payable Coordinator Name Role Phone Marta Washington MD Primary Care Provider [phone] Tahir Siu PharmD Unavailable [phone] Allergies No known active allergies Medications Continuous Glucose Plant Floor Automation Manager (KaptureStyle Romel 2 [place]) device Scan sensor every 8 hours 1 each 07/29/19 24 Active docusate sodium (Colace) 100 MG capsuleIndication s:Chronic idiopathic constipation TAKE 1 CAPSULE BY MOUTH TWICE DAILY IN THE MORNING AND AT BEDTIME 180 capsule 3 02/23/20 24 Active Alcohol Swabs (Alcohol Prep) 70 % padsIndications:T 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, with long-term current use of insulin (HCC) USE FOUR TIMES DAILY NEEDED 200 each 11 03/15/20 24 Active B-D UF III MINI PEN NEEDLES 31G X 5 MM miscIndications:T ype 2 diabetes mellitus with hyperglycemia (HCC) USE DIRECTED FOUR TIMES DAILY 100 each 11 04/21/19 25 Active losartan (Cozaar) 100 MG tablet TAKE 1 TABLET BY MOUTH EVERY MORNING 90 tablet 3 05/17/19 25 Active pantoprazole (ProtoNix) 20 MG EC tablet TAKE 1 TABLET BY MOUTH ONCE DAILY NEEDED 90 tablet 3 06/10/19 25 Active atorvastatin (Lipitor) 40 MG tabletIndications :Type 2 diabetes mellitus without complication, with long-term current use of insulin (HCC) TAKE 1 TABLET BY MOUTH AT BEDTIME 90 tablet 1 07/29/19 25 Active aspirin (Aspirin Low Dose) 81 MG EC tabletIndications :History of stroke TAKE 1 TABLET BY MOUTH EVERY MORNING 90 tablet 1 07/29/19 25 Active empagliflozin-met FORMIN (Synjardy) 5-1000 MG Take 1 tablet by mouth with breakfast and with evening meal. 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, with long-term current use of insulin ([facility]) TEST BLOOD SUGAR 5-6 TIMES PER DAY 200 each 08/06/19 25 Active glucose blood (FreeStyle Precision Vincent Test) test stripIndications: T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, with long-term current use of insulin ([facility]) USE DIRECTED TO TEST BLOOD SUGAR 3 TO 6 TIMES DAILY 100 strip 08/06/19 25 Active Continuous Glucose Sensor (FreeStyle Romel 2 Sensor) miscIndications:T 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, with long-term current use of insulin ([facility]) Apply 1 sensor every 14 days 2 each 08/06/19 25 Active NovoLOG FLEXPEN 100 UNIT/ML penIndications:Ty pe 2 diabetes mellitus with hyperglycemia ([facility]) INJECT 6 UNITS SUBCUTANEOUSLY WITH MEALS 15 mL 1 09/03/19 25 Active insulin glargine (Lantus SoloStar) 100 UNIT/ML penIndications:Ty pe 2 diabetes mellitus with other circulatory complication, with long-term current use of insulin ([facility]) Inject 30 units subcutaneously every evening 15 mL 10/12/19 25 Active Ferrous Sulfate (iron) 325 (65 Fe) MG tablet TAKE 1 TABLET BY MOUTH TWICE DAILY IN THE MORNING AND IN THE EVENING WITH ORANGE JUICE 60 tablet 1 12/16/19 25 Active Semaglutide,0.25 or 0.5MG/DOS, (Ozempic, 0.25 or 0.5 MG/DOSE,) 2 MG/3ML solution pen-injectorIndic ations:T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, with long-term current use of insulin ([facility]) Inject 0.5 mg under the skin 1 (one) time per week. 3 mL 3 12/18/19 25 Active Continuous Glucose Sensor (FreeStyle Romel 2 Plus Sensor) miscIndications:T 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, with long-term current use of insulin (HCC) 1 each every 15 days. Apply new sensor every 15 days 2 each 11 01/28/20 25 Active Active Problems Problem Noted Date Diagnosed Date [...] vascular dementia - will check with his people greeter for carotid US - due to his risk factors, will consider MRI or MRA. - MR Brain ordered 09/27/23 Assessment & Plan (10/30/2023 10:10 AM EDT): - seemingly age-appropriate memory problem - possible vascular dementia - will check with his people greeter for carotid US - due to his risk factors, will consider MRI or MRA. Assessment & Plan (09/27/2023 6:15 AM EDT): - seemingly age-appropriate memory problem - possible vascular dementia - will check with his people greeter for carotid US - due to his [...] history of skin cancer - seen by newspaper photographer, Dr. Bright in Jan 2024 - AK lesions were treated with cryotherapy Assessment & Plan (03/06/2024 6:23 AM EST): - history of skin cancer - seen by newspaper photographer, Dr. 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] & Plan (04/27/2022 7:03 AM EST): Oncologist: [facility], last seen 02/25/22 Dx in 2019 -Pathology [...] (10/31/2024 8:36 PM EDT): - [facility] -TTE on 07/24/21 [...] (07/30/2024 6:39 AM EDT): - [facility] with annual echocardiogram -TTE on 07/24/21 [...] (05/11/2024 8:42 AM EST): - Followed by [facility] with annual echocardiogram -TTE on 07/24/21 [...] (03/04/2024 5:06 PM EST): - Followed by [facility] with annual echocardiogram -TTE on 07/24/21 [...] AM EST): - Followed by [facility] with annual echocardiogram -TTE on 07/24/21 [...] AM EDT): - Followed by [facility] with annual echocardiogram -TTE on 07/24/21 Moderate LVH. EF 60-65%. Moderate aortic stenosis. Mild aortic regurgitation -TTE on 08/09/22. Normal left ventricular function EF 60-65%. Showed mild aortic stenosis. - Optimize risk factor management Assessment & Plan (07/29/2023 9:40 AM EDT): - Followed by [facility] with annual echocardiogram -TTE on 07/24/21 Moderate LVH. EF 60-65%. Moderate aortic stenosis. Mild aortic regurgitation -TTE on 08/09/22. Normal left ventricular function EF 60-65%. Showed mild aortic stenosis. - Optimize risk factor management Assessment & Plan (03/10/2023 5:07 AM EST): - [facility] with annual echocardiogram -TTE on 07/24/21 Moderate LVH. EF 60-65%. Moderate aortic stenosis. Mild aortic regurgitation -TTE on 08/09/22. Normal left ventricular function EF 60-65%. Showed mild aortic stenosis. - Optimize risk factor management Assessment & Plan (12/15/2022 6:03 PM EDT): - Followed by [facility] with annual echocardiogram -TTE on 07/24/21 Moderate LVH. EF 60-65%. Moderate aortic stenosis. Mild aortic regurgitation -TTE on 08/09/22. Normal left ventricular function EF 60-65%. Showed mild aortic stenosis. - Optimize risk factor management Assessment & Plan (09/24/2022 12:39 PM EDT): - Followed by [facility] with annual echocardiogram -TTE on 07/24/21 Moderate LVH. EF 60-65%. Moderate aortic stenosis. Mild aortic regurgitation -TTE on 08/09/22. Normal left ventricular function EF 60-65%. Showed mild aortic stenosis. - Optimize risk factor management Assessment & Plan (07/09/2022 3:43 PM EDT): - Followed by [facility] with annual echocardiogram - Last echo on 07/24/21 Moderate LVH. EF 60-65%. Moderate aortic stenosis. Mild aortic regurgitation - Optimize risk factor management Assessment & Plan (04/27/2022 6:53 AM EST): - Followed by [facility] with annual echocardiogram - Last echo on [...] (10/31/2024 8:34 PM EDT): - Followed by [facility] provider - Last venous study in in June 2020 showed b/l GSV incomptence - Compression stocking / leg elevation / DASH diet / adequate physical activity Assessment & Plan (07/30/2024 6:35 AM EDT): - Followed by [facility] provider - Last venous study in in June 2020 showed b/l GSV incomptence - Compression stocking / leg elevation / DASH diet / adequate physical activity Assessment & Plan (01/28/2024 9:59 PM EST): - Followed by [facility] provider - Last venous study in in June 2020 showed b/l GSV incomptence - Compression stocking / leg elevation / DASH diet / adequate physical activity Assessment & Plan (07/29/2023 9:40 AM EDT): - Followed by [facility] provider - Last venous study in in June 2020 showed b/l GSV incomptence - Compression stocking / leg elevation / DASH diet / adequate physical activity Assessment & Plan (03/10/2023 5:06 AM EST): - Followed by [facility] provider - Last venous study in in June 2020 showed b/l GSV incomptence - Compression stocking / leg elevation / DASH diet / adequate physical activity Assessment & Plan (12/15/2022 6:06 PM EDT): - Followed by [facility] provider - Last venous study in in June 2020 showed b/l GSV incomptence - Compression stocking / leg elevation / DASH diet / adequate physical activity Assessment & Plan (09/23/2022 3:02 PM EDT): - Followed by [facility] provider - Last venous study in in June 2020 showed b/l GSV incomptence - Compression stocking / leg elevation / DASH diet / adequate physical activity Assessment & Plan (07/09/2022 3:42 PM EDT): - [facility] - Last venous study in in June 2020 showed b/l GSV incomptence - Compression stocking / leg elevation / DASH diet / adequate physical activity Assessment & Plan (04/27/2022 6:42 AM EST): - Followed by [facility] provider - Last venous study in [...] on lifestyle modifications - patient has CGM Right On Interactive DM Maintenance - Last eye exam: Apr [...] side as late effect of cerebral infarction ([facility]/HCC) 11/30/2014 Assessment & Plan (11/01/2024 9:43 AM [...] medical conditions and safety. - seen by people greeter in Dec 2023 after carotid US and echo, follow up in 1 year with people greeter Assessment & Plan (03/04/2024 5:05 PM EST): - left side CVA with right hemiparesis - continue risk factor management - most recent carotid US on 12/29/23 showed moderate b/l carotid stenosis, 16- 49%, stable. - ordered a hospital bed at home for treatment of his medical conditions and safety. - seen by people greeter in Dec 2023 after carotid US and echo, follow up in 1 year with people greeter Assessment & Plan (01/31/2024 6:15 AM EST): - left side CVA with right hemiparesis - continue risk factor management - most recent carotid US on 12/29/23 showed moderate b/l carotid stenosis, 16- 49%, stable. - ordered a hospital bed at home for treatment of his medical conditions and safety. - seen by people greeter in Dec 2023 after carotid US and echo, follow up in 1 year with people greeter Assessment & Plan (09/27/2023 6:12 AM EDT): - left side CVA with right hemiparesis - continue risk factor management - most recent carotid US on 09/13/22 showed moderate b/l carotid stenosis; will ask his people greeter to update US. - ordered a hospital [...] consumption. - Keep appointment with Tahir Siu, RebaD, for CDTM. Assessment & Plan (07/29/2023 9:40 [...] Encounters Date Type Department Care Team Description 01/27/2025 Refill [facility] [address] [place] [address] Celina Eason RN T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, with long-term current use of insulin (HCC) (Primary Dx) 12/17/2024 Travel 12/14/2024 Refill [facility] [address] [place] [address] Marta Washington MD 11/01/2024 9:30 AM EDT Office Visit [facility] [address] [place] [address] Marta Washington MD Primary hypertension (Primary Dx); Dyslipidemia; Bilateral carotid artery stenosis; Nonrheumatic aortic valve stenosis; T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, with long-term current use of insulin (CMS/HCC); Lymphoma in remission (CMS/HCC); Memory problem; History of stroke; Hemiparesis of right dominant side as late effect of cerebral infarction (CMS/HCC); Obstructive sleep apnea syndrome 11/01/2024 Travel 10/29/2024 Telephone [facility] [address] [place] [address] Marta Washington MD chart prep from Last 3 Months Immunizations Immunization Administration [...] Description 02/02/2025 9:00 AM EST Office Visit [facility] [address] [place] [phone] Marta Washington MD [address] [place] [phone] 04/01/2025 9:00 AM EST Medication Management [facility] [address] [place] [phone] Tahir Siu, PharmD [address] [place], [place] [phone] 06/06/2025 9:30 AM EDT Office Visit [facility] OPTOMETRY [address] [place] [address] Melany Pereira, OD [address] [place], [place] [phone] Health Maintenance Due Date Last Done Comments [...] Additional history exists Lipid Panel 08/11/2025 08/11/2024, 07/0 05/2023, 01/21/2023, Additional history exists Alcohol/Substance Use Screening [...] 9:53 AM EDT) No Tahir Siu PharmD Procedures Procedure Name Priority Date/Time Associated Diagnosis Comments FRUCTOSAMINE Routine 12/17/2024 9:59 AM EDT T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, with long-term current use of insulin ([facility]) COMPREHENSIVE METABOLIC PANEL Routine 12/17/2024 9:59 AM EDT Primary hypertension CBC WITH AUTO DIFFERENTIAL Routine 12/17/2024 9:59 AM EDT Lymphoma in remission ([facility]/HCC) POCT GLYCOSYLATED HEMOGLOBIN (HGB A1C) Routine 11/01/2024 9:53 AM EDT T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, with long-term current use of insulin ([facility]) POCT GLUCOSE Routine 11/01/2024 9:24 AM EDT T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, with long-term current use of insulin ([facility]) ALBUMIN, RANDOM URINE W/CREATININE Routine 08/11/2024 7:59 AM EDT T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, with long-term current use of insulin ([facility]) Primary hypertension LIPID PANEL WITH REFLEX TO [...] Relevant to Health Maintenance Results * (ABNORMAL) CBC auto differential (12/17/2024 9:59 AM EDT) White Blood Count 6.8 4.8 - 10.8 X10*3/uL [facility] Red Blood Count 4.22(L) 4.60 - 5.80 X10*6/uL [facility] Hemoglobin 13.1(L) 14.0 - 18.0 g/dl [facility] Hematocrit 39.6(L) 42.0 - 52.0 % [facility] Mean Corpuscular Volume 93.8 80.0 - 98.0 fL [facility] Mean Corpuscular Hemoglobin 31.0 27.0 - 33.0 pg [facility] Mean Corpuscular HGB Conc 33.1 31.0 - 36.0 g/dl [facility] Red Cell Distribution Width 14.1 11.0 - 16.0 % [facility] Platelet Count 216 160 - 400 X10*3/uL [facility] Mean Platelet Volume 9.6 9.4 - 12.4 fL [facility] Neutrophils Percent Auto 53.7 45 - 73 % [facility] Imm Gran Pct Auto 0.6(H) 0.0 - 0.4 % [facility] Lymphocytes Percent Auto 26.8 20 - 40 % [facility] Monocytes Percent Auto 9.8 2 - 11 % [facility] Eosinophils Percent Auto 8.2(H) 0 - 4 % [facility] Basophils Percent Auto 0.9 0 - 2 % [facility] NRBC Pct Auto 0.0 0.0 - 0.2 /100WBC [facility] Neutrophils Absolute Auto 3.7 2.0 - 8.3 x10*3/uL [facility] Imm Gran Abs Auto 0.04(H) 0.00 - 0.03 X10*3/uL [facility] Lymphocytes Absolute Auto 1.8 1.2 - 4.9 X10*3/uL [facility] Monocytes Absolute Auto 0.7 0.1 - 1.2 X10*3/uL [facility] Eosinophils Absolute Auto 0.6(H) 0.0 - 0.4 X10*3/uL [facility] Basophils Absolute Auto 0.1 0.0 - 0.2 X10*3/uL [facility] NRBC Abs Auto 0.000 0.0 - 0.012 X10*3/uL [facility] Blood Venous blood specimen / Unknown 12/17/2024 9:59 AM EDT 12/17/2024 11:21 AM EDT us aMrta Washington MD LAB BLOOD ORDERABLES Final Resul t [facility] [address] [place] [phone] * (ABNORMAL) Fructosamine (12/17/2024 9:59 AM EDT) Fructosamine 336(A) 205 - 285 umol/L [facility] Comment:THIS TEST WAS PERFOR MED AT:[id number] [place] [id number] MAYO MD,PHD Blood Venous blood specimen / Unknown 12/17/2024 9:59 AM EDT 12/17/2024 11:27 AM EDT us Marta Washington MD LAB BLOOD ORDERABLES Final Resul t [facility] [address] [place] [phone] * (ABNORMAL) Comprehensive Metabolic Panel (12/17/2024 9:59 AM EDT) Sodium 143 135 - 145 mmol/L [facility] Potassium 4.2 3.3 - 5.1 mmol/L [facility] Chloride 109(H) 96 - 108 mmol/L [facility] Carbon Dioxide 28 22 - 29 mmol/L [facility] Anion Gap 10(L) 12 - 20 [facility] Urea Nitrogen (BUN) 21(H) 9 - 16 mg/dL [facility] Creatinine, Serum 1.16 0.5 - 1.4 mg/dL [facility] Estimated Glomerular Filt Rate 60 [facility] Comment:Chronic Kidney Disea se: Estimated GFR < 60 mL/min/1.30m2Ssxxot Kidney Disease: Estimated GFR < 15 mL/min/1.73m2 Glucose 148(H) 60 - 115 mg/dL [facility] Calcium 9.4 8.4 - 10.2 mg/dL [facility] Bilirubin, Total 0.3 0.0 - 1.0 mg/dL [facility] Aspartate Amino Transferase 33 5 - 37 U/L [facility] Alanine Aminotransferase 40 0 - 40 U/L [facility] Total Protein 7.5 6.5 - 8.0 g/dL [facility] Albumin Level 4.2 3.5 - 5.0 g/dL [facility] Alkaline Phosphatase 145(H) 39 - 117 U/L [facility] Blood Venous blood specimen / Unknown 12/17/2024 9:59 AM EDT 12/17/2024 11:27 AM EDT Marta Washington MD LAB BLOOD ORDERABLES Final Resul t [facility] [address] [place] [phone] * (ABNORMAL) POCT glycosylated hemoglobin (Hgb A1c) (11/01/2024 9:53 AM EDT) Hemoglobin A1C 8.7(A) 4.0 - 5.7 % QC Media Lot # [id number] Lot# Expiration Date [id number] Blood Capillary blood specimen / Unknown 11/01/2024 9:53 AM EDT Marta Washington MD POINT OF CARE TEST ENTER/EDIT OR DERABLES Final Result * POCT glucose manually resulted (11/01/2024 9:24 AM EDT) Glucose Blood, POC 166 60 - 200 mg/dL [employer] Lot # [id number] Lot# Expiration Date ,139,506 Blood Capillary blood specimen / Unknown 11/01/2024 9:24 AM EDT Marta Washington MD POINT OF CARE TEST ENTER/EDIT OR DERABLES Final Result * Lipid Panel with Reflex to Direct LDL (08/11/2024 7:59 AM EDT) Triglycerides 92 <150 mg/dL [facility] Comment:Desirable Triglyceri de: less than 150 mg/dLBorderline High Triglyceride 150-199 mg/dLHigh Triglyceride: 200-499 mg/dLVery High Triglyceride: greater than or equal to 5OO mg/dL Cholesterol 134 <200 mg/dL [facility] Comment:Desirable Cholestero l: less than 200 mg/dLBorderline High Cholesterol: 200-239 mg/dLHigh Cholesterol: greater than 239 mg/dL LDL Cholesterol Calculated 63 <100 mg/dL [facility] Comment:Desirable LDL: less than 100 mg/dLNear Optimal/Above Optimal LDL: 110- 129 mg/dLBorderline High LDL: 130-159 mg/dLHigh LDL: 160-189 mg/dLVery High LDL: greater than or equal to 190 mg/dL HDL Cholesterol 53 >40 mg/dL [facility] Comment:Desirable HDL: great er than 40 mg/dL Note: This HDL assay may give artificially low results in patients with liver disease. Blood 08/11/2024 7:59 AM EDT 08/11/2024 11:04 AM EDT us Marta Washington MD LAB BLOOD ORDERABLES Final Resul t Performing Organization Address City/[facility] Co de Phone Number [facility] [address] [place] [phone] * Albumin, Random Urine W/Creatinine (08/11/2024 7:59 AM EDT) Creatinine, Urine 70.77 mg/dL [facility] Microalbumin Urine 12.0 mg/L [facility] Microalbum Creatinine Ratio Ur 16.9 <30 ug/mg cr [facility] Comment:Albumin/Creatinine R atio Reference Ranges: Normal: < 30 ug/mg creatinine Microalbuminuria: 30 - 300 ug/mg creatinineClinical Albuminuria: > 300 ug/mg creatinine Urine 08/11/2024 7:59 AM EDT 08/11/2024 10:59 AM EDT us Marta Washington MD LAB URINE ORDERABLES Final Resul t Performing Organization Address [facility] Co de Phone Number [facility] [address] [place] [phone] from Last 3 Months or Most Recently Relevant to Health Maintenance Insurance [facility] [employer] OPT[employer] (HMO D-SNP) [facility] STANDARD Care Teams Accounts Payable Coordinator Relationship Specialty Start Date End Date Marta Washington MD [address] [place] [address] PCP - General Family Medicine 07/03/16 Tahir Siu, RebaD [address] [place] [address] Pharmacist Internal Medicine 11/11/22
[2025-01-28 22:45] VITALS: BP 115/48; PULSE 73; RESP 16; TEMP 35.3; O2SAT 98
[2025-01-28] MEDS: Lactated Ringers 500 ML 999 ML IV (22:50)
--- NOTE | 2025-01-28 22:53 | PC.NURSE ---
BLOOD CULTURES DRAWN @ 2253, computer system crashed while RN and tech attempted to scan labels. CN aware.
[2025-01-28 23:06] LABS: MANUAL DIFF FLAG NO
[2025-01-28 23:08] LABS: Hematocrit 38.6 % (42.0-52.0); Hemoglobin 12.8 g/dl (14.0-18.0); Imm Gran Abs Auto 0.03 X10*3/uL (0.00-0.03); Imm Gran Pct Auto 0.4 % (0.0-0.4); Lymphocytes Absolute Auto 0.9 X10*3/uL (1.2-4.9); Mean Corpuscular HGB Conc 33.2 g/dl (31.0-36.0); Mean Corpuscular Hemoglobin 31.0 pg (27.0-33.0); Mean Corpuscular Volume 93.5 fL (80.0-98.0); NRBC Abs Auto 0.000 X10*3/uL (0.0-0.012); NRBC Pct Auto 0.0 /100WBC (0.0-0.2); Platelet Count 181 X10*3/uL (160-400); Red Blood Count 4.13 X10*6/uL (4.60-5.80); White Blood Count 7.1 X10*3/uL (4.8-10.8)
[2025-01-28 23:20] VITALS: BP 131/64; PULSE 74; RESP 16; TEMP 35.3; O2SAT 96
[2025-01-28] MEDS: Dextrose 10 % 1,000 ML 50 ML IVCONT (23:25)
[2025-01-28 23:32] LABS: Glucose, Whole Blood 46 mg/dL (60-115)
[2025-01-28 23:32] LABS: Alanine Aminotransferase 33 U/L (0-40); Albumin Level 4.2 g/dL (3.5-5.0); Alkaline Phosphatase 108 U/L (39-117); Anion Gap 12 (12-20); Aspartate Amino Transferase 42 U/L (5-37); Blood Urea Nitrogen 25 mg/dL (9-16); Calcium 9.3 mg/dL (8.4-10.2); Carbon Dioxide 24 mmol/L (22-29); Chloride 109 mmol/L (96-108); Creatinine Clr Calc Pharmacy 62.4; Estimated Glomerular Filt Rate > 60; Lipase 70 U/L (8-78); Magnesium 2.1 mg/dL (1.6-2.6); Potassium 3.1 mmol/L (3.3-5.1); Sodium 142 mmol/L (135-145); Total Protein 7.3 g/dL (6.5-8.0)
[2025-01-28 23:32] LABS: Glucose, Whole Blood 67 mg/dL (60-115)
[2025-01-28 23:32] LABS: Glucose, Whole Blood 188 mg/dL (60-115)
[2025-01-28 23:32] LABS: Glucose, Whole Blood 111 mg/dL (60-115)
[2025-01-28 23:32] LABS: Glucose, Whole Blood 85 mg/dL (60-115)
[2025-01-28 23:33] LABS: Troponin-I High Sensitivity 70.9 ng/L (<3.5-35.0)
--- NOTE | 2025-01-28 23:41 | PC.NURSE ---
report received and care assumed, pt found to be resting without any outward s/s of distress noted. Warming blanket in place, O2 via NC utilized, family at bedside. RN working with previous RN to get medications in order, LR was paused at 2320 after a POC of 67, D10 hung per MAR and family educated. EDT currently at bedside to obtain repeat POC as MD concerned about patient's somnolence and his ability to safely take his potassium replacement. Pt with continuous cardiac and vital sign monitoring. Bilateral IVs patent and with no s/s of complications noted to insertion site.
[2025-01-28 23:50] LABS: Glucose, Whole Blood 68 mg/dL (60-115)
--- NOTE | 2025-01-28 23:51 | PC.NURSE ---
Pt's POC remain in the high 60s despite the D10 at 50ml/hr. Per MD Dubois, the pt's D10 infusion was increased from 50ml/hr to 75ml/hr. Staff will continue to regularly monitor his blood sugars.
[2025-01-28 23:59] LABS: Resp Syncy Virus RNA Qual PCR NEGATIVE (Negative); SARS COV2 PCR INHOUSE NEGATIVE (Negative)
[2025-01-29] VITALS (8 sets, daily range): BP systolic 114–137; BP diastolic 58–72; PULSE 80–94; RESP 12–28; TEMP 35.8–37.1; O2SAT 94–98
[2025-01-29 00:02] LABS: Venous Blood Gas Refer to POC result
[2025-01-29 00:04] LABS: VBG HCO3 27 mmol/L (22-26); VBG O2 % Saturation 93.0 %
[2025-01-29 00:08] LABS: Glucose, Whole Blood 73 mg/dL (60-115)
[2025-01-29 00:14] LABS: D Dimer High Sensitivity < 150 NG/ML
[2025-01-29] MEDS: Potassium Chloride/H20 10 MEQ/100 ML PIGGYBACK 100 MEQ IV ×4 (00:23→04:24)
[2025-01-29 00:44] LABS: Glucose, Whole Blood 71 mg/dL (60-115)
[2025-01-29 01:05] LABS: Reflex Lactate? Lactic Acid Added
[2025-01-29 01:43] LABS: Glucose, Whole Blood 88 mg/dL (60-115)
[2025-01-29 01:44] LABS: Venous Blood Gas Refer to POC result
[2025-01-29 01:45] LABS: Appearance Urine Clear; Glucose Urine UA >=1000 mg/dL (Negative); PH 5.5 (5.0-9.0); Specific Gravity - Urine 1.025 (1.005-1.025); UMIC TRIGGER UACC YES
[2025-01-29 01:47] LABS: VBG HCO3 25 mmol/L (22-26); VBG O2 % Saturation 98.0 %
[2025-01-29 01:48] LABS: UACC Culture Trigger YES
[2025-01-29 02:03] LABS: ~Lactic Acid-LAB USE ONLY 0.9 mmol/L (0.5-2.0)
[2025-01-29 02:06] LABS: Troponin-I High Sensitivity 77.5 ng/L (<3.5-35.0)
--- NOTE | 2025-01-29 02:06 | PC.NURSE ---
Pt currently more consistently awake and alert. He offers no complaints at this time, was able to be repositioned and HOB elevated to allow for PO challenge. pt tolerated gingerale and crackers well, MD aware and plan for the pt to try to tolerate a sandwich or something more substantial per the MD. The family is aware and agreeable to plan, offers no concerns. Warming blanket remains in place with positive upward trend noted in his temperatures.
[2025-01-29 02:52] LABS: Glucose, Whole Blood 161 mg/dL (60-115)
--- NOTE | 2025-01-29 03:23 | PC.NURSE ---
Per MD pool's D10 infusion was discontinued as his POC at 0250 was 161 and he has been more awake/alert and has been able to tolerate food orally including a turkey sandwich and juice.
--- NOTE | 2025-01-29 04:41 | PC.NURSE ---
MD to bedside to converse with patient and with residential treatment staff. MD wanting to ensure there is a plan in place regarding future management of his insulin dosing to hopefully prevent any future hypoglycemic episodes. and son both report that they will assist with his medication needs. Plan is for the pt to be discharged home once his IV Potassium infusion is complete
== END 2025-01-29 06:00 | disposition home or self-care (01) ==
PROVIDERS: Emergency Medicine; Emergency Provider Emergency Medicine; PCP Family Medicine
DX: E11.649 Type 2 diabetes mellitus with hypoglycemia without coma (principal); E87.6 Hypokalemia; R09.02 Hypoxemia; R39.198 Other difficulties with micturition; E87.20 Acidosis, unspecified; T68.XXXA Hypothermia, initial encounter; R29.703 NIHSS score 3; F03.A0 Unspecified dementia, mild, without behavioral disturbance, psychotic disturbance, mood disturbance, and anxiety; I10 Essential (primary) hypertension; R07.89 Other chest pain; R41.82 Altered mental status, unspecified; R47.81 Slurred speech; Z03.818 Encounter for observation for suspected exposure to other biological agents ruled out; Z79.4 Long term (current) use of insulin; Z51.81 Encounter for therapeutic drug level monitoring; Z79.899 Other long term (current) drug therapy; Z79.85 Long-term (current) use of injectable non-insulin antidiabetic drugs
CPT/HCPCS: 36415; 70450; 71045; 71250; 80053; 80307; 81001; 82248; 82550; 82803; 82947; 83605; 83690; 83735; 84443; 84484; 85025; 85379; 85610; 86140; 87040; 87086; 87637; 93005; 96361; 96365; 96366; 96367; 96376; 99285; J0696; J3480; J7120

== ENCOUNTER → 2025-01-28 22:06 | Outpatient (BNV) | payer OTHER, SELFPAY | PROVIDERS: Emergency Provider Emergency Medicine; PCP Family Medicine; Visit Provider Radiology Diagnostic Radiology | DX: R41.82 Altered mental status, unspecified (principal); R47.81 Slurred speech; R53.1 Weakness | CPT/HCPCS: 70450; 71045 ==

== ENCOUNTER → 2025-01-28 22:07 | Outpatient (BNV) | payer OTHER, SELFPAY | PROVIDERS: Emergency Provider Emergency Medicine; PCP Family Medicine; Visit Provider Internal Medicine Cardiovascular Disease | DX: I45.4 Nonspecific intraventricular block (principal) | CPT/HCPCS: 93010 ==

== ENCOUNTER → 2025-01-29 00:19 | Outpatient (BNV) | payer OTHER, SELFPAY | PROVIDERS: Emergency Provider Emergency Medicine; PCP Family Medicine; Visit Provider Student in an Organized Health Care Education/Training Program | DX: J98.09 Other diseases of bronchus, not elsewhere classified (principal) | CPT/HCPCS: 71250 ==